=== PATIENT | female | born 1955 | race Caucasian/White ===

== ENCOUNTER → 2017-01-04 | Outpatient (CLI) | payer BC ==
[2017-01-04 14:27] LABS: Basophils # (A) 0.1 k/uL (0-0.2); Basophils % (A) 0 %; CH 30.9; CHCM 32.2; Eosinophils # (A) 0.2 k/uL (0-0.7); Eosinophils % (A) 1 %; HCT 40.2 % (34.0-46.0); HDW 2.35; HGB 12.8 gm/dL (11.4-16.0); Luc # (Auto) 0.08; Luc % (Auto) 1; Lymphocytes # (A) 0.7 k/uL (1.0-4.8); Lymphocytes % (A) 6 %; MCH 30.8 pg (25.0-35.0); MCHC 31.9 g/dL (31.0-37.0); MCV 96.4 fL (80.0-100.0); Monocytes # (A) 0.4 k/uL (0-1.0); Monocytes % (A) 3 %; Neutrophils # (A) 10.1 k/uL (1.3-7.7); Neutrophils % (A) 88 %; RBC 4.17 m/uL (3.80-5.40); RDW 14.5 % (11.5-15.5); WBC 11.4 k/uL (3.8-10.6); WBC (Perox) 12.04
== END | disposition home or self-care (01) ==
LOC: LABPAT 13:52
PROVIDERS: ATTEND Obstetrics & Gynecology
DX: Z01.810 Encounter for preprocedural cardiovascular examination (principal); Z01.812 Encounter for preprocedural laboratory examination; I10 Essential (primary) hypertension; N95.0 Postmenopausal bleeding
CPT/HCPCS: 36415; 85025; 93005

== ENCOUNTER → 2017-01-11 | Day surgery (SDC) | payer BC ==
[2017-01-05 10:09] VITALS: BMI 56.5
[~2017-01-11] MED LIST: BUPIVACAINE-EPI 0.5%-1:200,000 10 ML VIAL SQ ONE; DEXAMETHASONE SOD PHOSPHATE 10 MG/ML 1 ML VIAL IV ONE; HYDROmorphone (PF) 1 MG/ML ONE; HYDROmorphone 0.5 MG/0.5 ML SYRINGE IVP PRN; KETOROLAC 30 MG/ML 1 ML VIAL ONE; LACTATED RINGERS 1,000 ML IV ONE; LACTATED RINGERS 1,000 ML IV SCH; LIDOCAINE 1% 20 ML VIAL (10MG/ML) FOR IV START INTRADERMA PRN; LIDOCAINE 1% INJ 10MG/ML (20 ML MDV) ONE; MIDAZOLAM 2 MG/2 ML VIAL IV ONE; ONDANSETRON 4 MG/2 ML VIAL IVP ONE; PROPOFOL 10 MG/ML 20 ML VIAL IV ONE; Pre Op ABX Message 1 EACH MISC MISCELLANE ONE; SCOPOLAMINE 1.5MG/72HR PATCH TRANSDERM ONE; SUCCINYLCHOLINE CHLORIDE VIAL 200 MG/10 ML VIAL IV ONE; fentaNYL (PF) 50 MCG/ML 2 ML AMP ONE
--- NOTE | 2017-01-11 12:33 | P.OP ---
Date of Procedure: 01/11/17 Preoperative Diagnosis: postmenopausal bleeding Morbid obesity Postoperative Diagnosis: postmenopausal bleeding Morbid obesity Vaginal/cervical mass Procedure(s) Performed: exam under anesthetic with biopsy of vaginal apex mass Anesthesia: TIM Surgeon: Becki Boykin Estimated Blood Loss (ml): 5 IV fluids (ml): 750 Urine output (ml): 50 Pathology: other (vaginal apex mass) Condition: stable Disposition: PACU Indications for Procedure: this is a 61-year-old woman with a history of postmenopausal bleeding. Tissue biopsy an adequate examination is not possible in the office secondary to body habitus and mobility issues. Operative Findings: On bimanual examination the vagina is small and the apex constricted with a firm friable mass. Pieces of this mass are able to be removed manually and or saved for pathology. With speculum examination, it is very difficult to open the speculum secondary to the patient's body habitus that a small portion of abnormal tissue possibly emanating from the anterior vaginal wall and or cervix is visualized. This is friable and pieces are grasped and removed for pathology specimen. This area is is bleeding somewhat prior to taking samples. Speculum was removed and bimanual examination was again performed. I do believe this mass is emanating from the cervix and extending into the anterior and right vagina and posterior vagina. rectovaginal examination is performed and I do not palpate any rectal mass however there is some firmness and thickening in the midportion of the rectal vaginal septum. adequate sampling of this finding undertaken. Patient was awoken from anesthetic and transported to recovery area in stable condition. All counts were correct.
[2017-01-11 12:43] VITALS: TEMP 97
[2017-01-11 13:38] VITALS: PULSE 78
[2017-01-11 14:01] VITALS: RESP 18
[2017-01-11 14:24] VITALS: BP 145/86
== END | disposition home or self-care (01) ==
LOC: OR 09:36
PROVIDERS: ATTEND Obstetrics & Gynecology
DX: C52 Malignant neoplasm of vagina (principal); N95.0 Postmenopausal bleeding; I10 Essential (primary) hypertension; G47.33 Obstructive sleep apnea (adult) (pediatric); F32.9 Major depressive disorder, single episode, unspecified; K21.9 Gastro-esophageal reflux disease without esophagitis; E66.01 Morbid (severe) obesity due to excess calories; Z68.44 Body mass index [BMI] 60.0-69.9, adult; Z82.49 Family history of ischemic heart disease and other diseases of the circulatory system; Z79.82 Long term (current) use of aspirin; Z79.899 Other long term (current) drug therapy
CPT/HCPCS: 57100; 88305; 88342; 86788; 88341; J2250; J0330; J1100; J2405; J2001; J3010; J1885; J1170; J2704

== ENCOUNTER 2017-01-26 10:42 | Observation (INO) | payer BC ==
[2017-01-26] MEDS ORDERED: SODIUM CHLORIDE 0.9% 1,000 ML IV ONE (11:34)
--- NOTE | 2017-01-26 11:42 | ED ---
General Adult HPI - General Chief complaint: Vaginal Bleeding Stated complaint: Vaginal Bleeding Time Seen by Provider: 01/26/17 10:53 Source: patient, RN notes reviewed, old records reviewed Mode of arrival: wheelchair Limitations: no limitations - History of Present Illness Initial comments: This is a 7-year-old female to the ER for evaluation today. Patient is and has known vaginal bleeding. Has for quite some time. Patient has been evaluated on different occasions for this vaginal bleeding. She has known endometrial cancer:"advanced". Patient is stating that she has vaginal bleeding today and passing some clots. Patient states on average she changes her pad her brief about 3 times a day. Denies lightheadedness or dizziness, denies feeling of weakness. - Related Data Home Medications Medication Instructions Recorded Confirmed Bisoprol/Hydrochlorothiazide [Ziac 1 tab PO DAILY 01/05/17 01/26/17 5-6.25 MG] Famotidine [Pepcid] 20 mg PO BID 01/05/17 01/26/17 Ferrous Sulfate [Iron] 325 mg PO DAILY 01/05/17 01/26/17 Sertraline HCl [Zoloft] 75 mg PO DAILY 01/05/17 01/26/17 Vit C/E/Zn/Coppr/Lutein/Zeaxan 1 cap PO BID 01/05/17 01/26/17 [Preservision Areds 2 Softgel] ALPRAZolam [Xanax] 0.5 mg PO TID PRN 01/26/17 01/26/17 Hydrocodone/Acetaminophen [[place] 1 tab PO TID PRN 01/26/17 01/26/17 10-325] Allergies Allergy/AdvReac Type Severity Reaction Status Date / Time No Known Allergies Allergy Verified 01/26/17 11:04 Review of Systems ROS Statement: Those systems with pertinent positive or pertinent negative responses have been documented in the HPI. ROS Other: All systems not noted in ROS Statement are negative. Past Medical History Past Medical History: Cancer, Eye Disorder, Hypertension, Osteoarthritis (OA), Sleep Apnea/CPAP/BIPAP Additional Past Medical History / Comment(s): macular degeneration History of Any Multi-Drug Resistant Organisms: None Reported Past Surgical History: Orthopedic Surgery Past Psychological History: Anxiety, Depression Smoking Status: Never smoker Past Alcohol Use History: Occasional Past Drug Use History: None Reported General Exam Limitations: no limitations General appearance: alert, in no apparent distress Head exam: Present: atraumatic, normocephalic, normal inspection Eye exam: Present: normal appearance, PERRL, EOMI. Absent: scleral icterus, conjunctival injection, periorbital swelling ENT exam: Present: normal exam, mucous membranes moist Neck exam: Present: normal inspection. Absent: tenderness, meningismus, lymphadenopathy Respiratory exam: Present: normal lung sounds bilaterally. Absent: respiratory distress, wheezes, rales, rhonchi, stridor Cardiovascular Exam: Present: regular rate, normal rhythm, normal heart sounds. Absent: systolic murmur, diastolic murmur, rubs, gallop, clicks GI/Abdominal exam: Present: soft, normal bowel sounds. Absent: distended, tenderness, guarding, rebound, rigid Extremities exam: Present: normal inspection, full ROM, normal capillary refill. Absent: tenderness, pedal edema, joint swelling, calf tenderness Back exam: Present: normal inspection Neurological exam: Present: alert, oriented X3, CN II-XII intact Psychiatric exam: Present: normal affect, normal mood Skin exam: Present: warm, dry, intact, normal color. Absent: rash Course Vital Signs 01/26/17 01/26/17 10:45 12:55 Temperature 97.7 F Pulse Rate 80 73 Respiratory 16 17 Rate Blood Pressure 135/63 129/59 O2 Sat by Pulse 97 96 Oximetry - Reevaluation(s) Reevaluation #1: 01/26/17 11:42 Medical records reviewed including prior pelvic exam, Reevaluation #2: 01/26/17 11:42 Patient monitored for amount of bleeding here in the emergency room Reevaluation #3: 01/26/17 11:[address] Israel at [facility], he is very aware of patient, wants assessment of bleeding, therapeutic radiation evaluation Medical Decision Making - Medical Decision Making 61-year-old female at the ER for evaluation of vaginal bleeding secondary to endometrial cancer. Patient will be admitted for palliative radiation therapy in regards to bleeding. Hemoglobin stable, patient is lightheadedness or dizzy - Lab Data Result diagrams: 01/26/17 11:25 01/26/17 11:25 Lab Results 01/26/17 01/26/17 01/26/17 Range/Units 11:25 11:25 11:25 WBC 15.1 H (3.8-10.6) k/uL RBC 4.14 (3.80-5.40) m/uL Hgb 12.2 (11.4-16.0) gm/dL Hct 38.5 (34.0-46.0) % MCV 93.0 (80.0-100.0) fL MCH 29.5 (25.0-35.0) pg MCHC 31.8 (31.0-37.0) g/dL RDW 14.5 (11.5-15.5) % Plt Count 509 H (150-450) k/uL Neutrophils % 91 % Lymphocytes % 3 % Monocytes % 4 % Eosinophils % 2 % Basophils % 1 % Neutrophils # 13.7 H (1.3-7.7) k/uL Lymphocytes # 0.5 L (1.0-4.8) k/uL Monocytes # 0.5 (0-1.0) k/uL Eosinophils # 0.3 (0-0.7) k/uL Basophils # 0.1 (0-0.2) k/uL PT 10.0 (9.0-12.0) sec INR 1.0 (<1.2) APTT 24.7 (22.0-30.0) sec Sodium 138 (137-145) mmol/L Potassium 4.1 (3.5-5.1) mmol/L Chloride 107 (98-107) mmol/L Carbon Dioxide 19 L (22-30) mmol/L Anion Gap 12 mmol/L BUN 37 H (7-17) mg/dL Creatinine 2.16 H (0.52-1.04) mg/dL Est GFR (MDRD) Af Amer 28 (>60 ml/min/1.73 sqM) Est GFR (MDRD) Non-Af 23 (>60 ml/min/1.73 sqM) Glucose 97 (74-99) mg/dL Calcium 9.1 (8.4-10.2) mg/dL Total Bilirubin 0.3 (0.2-1.3) mg/dL AST 32 (14-36) U/L ALT 18 (9-52) U/L Alkaline Phosphatase 61 (38-126) U/L Total Protein 6.8 (6.3-8.2) g/dL Albumin 3.4 L (3.5-5.0) g/dL Blood Type Blood Type Recheck Antibody Screen Spec Expiration Date 01/26/17 Range/Units 11:25 WBC (3.8-10.6) k/uL RBC (3.80-5.40) m/uL Hgb (11.4-16.0) gm/dL Hct (34.0-46.0) % MCV (80.0-100.0) fL MCH (25.0-35.0) pg MCHC (31.0-37.0) g/dL RDW (11.5-15.5) % Plt Count (150-450) k/uL Neutrophils % % Lymphocytes % % Monocytes % % Eosinophils % % Basophils % % Neutrophils # (1.3-7.7) k/uL Lymphocytes # (1.0-4.8) k/uL Monocytes # (0-1.0) k/uL Eosinophils # (0-0.7) k/uL Basophils # (0-0.2) k/uL PT (9.0-12.0) sec INR (<1.2) APTT (22.0-30.0) sec Sodium (137-145) mmol/L Potassium (3.5-5.1) mmol/L Chloride (98-107) mmol/L Carbon Dioxide (22-30) mmol/L Anion Gap mmol/L BUN (7-17) mg/dL Creatinine (0.52-1.04) mg/dL Est GFR (MDRD) Af Amer (>60 ml/min/1.73 sqM) Est GFR (MDRD) Non-Af (>60 ml/min/1.73 sqM) Glucose (74-99) mg/dL Calcium (8.4-10.2) mg/dL Total Bilirubin (0.2-1.3) mg/dL AST (14-36) U/L ALT (9-52) U/L Alkaline Phosphatase (38-126) U/L Total Protein (6.3-8.2) g/dL Albumin (3.5-5.0) g/dL Blood Type O Positive Blood Type Recheck No Antibody Screen NEGATIVE Spec Expiration Date 01/29/2017 - 2324 Disposition Clinical Impression: Dysfunctional uterine bleeding, Menometrorrhagia, Endometrial cancer, Vaginal bleeding Disposition: ADMITTED IP TO THIS HOSP Referrals: Nedic,Abel, MD [Primary Care Provider] - 1-2 days
[2017-01-26 11:49] LABS: Basophils # (A) 0.1 k/uL (0-0.2); Basophils % (A) 1 %; CH 29.3; CHCM 31.6; Eosinophils # (A) 0.3 k/uL (0-0.7); Eosinophils % (A) 2 %; HCT 38.5 % (34.0-46.0); HDW 2.27; HGB 12.2 gm/dL (11.4-16.0); Luc # (Auto) 0.09; Luc % (Auto) 1; Lymphocytes # (A) 0.5 k/uL (1.0-4.8); Lymphocytes % (A) 3 %; MCH 29.5 pg (25.0-35.0); MCHC 31.8 g/dL (31.0-37.0); Mean Platelet Volume 7.1; Monocytes # (A) 0.5 k/uL (0-1.0); Monocytes % (A) 4 %; Neutrophils # (A) 13.7 k/uL (1.3-7.7); Neutrophils % (A) 91 %; RBC 4.14 m/uL (3.80-5.40); RDW 14.5 % (11.5-15.5); WBC 15.1 k/uL (3.8-10.6); WBC (Perox) 15.21
[2017-01-26 11:56] LABS: Calcium 9.1 mg/dL (8.4-10.2); Potassium 4.1 mmol/L (3.5-5.1); Total Bilirubin 0.3 mg/dL (0.2-1.3); Total Protein 6.8 g/dL (6.3-8.2)
[2017-01-26 12:06] LABS: Partial Thromboplastin Time 24.7 sec (22.0-30.0)
[2017-01-26] MEDS ORDERED: ALPRAZolam 0.5 MG TAB PO PRN (14:51)
[2017-01-26] MEDS ORDERED: CYCLOBENZAPRINE 5 MG TAB PO PRN (14:52)
--- NOTE | 2017-01-26 14:57 | P.HPIM ---
History of Present Illness Patient is a very pleasant 7-year-old female with known history of any material cancer came in with vaginal bleeding multiple episodes of blood clots uses about 4 pads daily since Wednesday. 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 Patient is comparing of abdominal cramping and vaginal cramping along with back pain and spasms will start her on symptomatically treatment for these and monitor her here for any further bleeding. Review of Systems REVIEW OF SYSTEMS: CONSTITUTIONAL: No fever, no malaise, no fatigue. HEENT: No recent visual problems or hearing problems. Denied any sore throat. CARDIOVASCULAR: No chest pain, orthopnea, PND, no palpitations, no syncope. PULMONARY: No shortness of breath, no cough, no hemoptysis. GASTROINTESTINAL: No diarrhea, no nausea, no vomiting, no abdominal pain. Normoactive bowel sounds. NEUROLOGICAL: No headaches, no weakness, no numbness. HEMATOLOGICAL: Denies any bleeding or petechiae. GENITOURINARY: Denies any burning micturition, frequency, or urgency. MUSCULOSKELETAL/RHEUMATOLOGICAL: As mentioned in HPI ENDOCRINE: Denies any polyuria or polydipsia. The rest of the 14-point review of systems is negative. Past Medical History Past Medical History: Cancer, Eye Disorder, Hypertension, Osteoarthritis (OA), Sleep Apnea/CPAP/BIPAP Additional Past Medical History / Comment(s): macular degeneration History of Any Multi-Drug Resistant Organisms: None Reported Past Surgical History: Orthopedic Surgery Past Psychological History: Anxiety, Depression Smoking Status: Never smoker Past Alcohol Use History: Occasional Past Drug Use History: None Reported Medications and Allergies Home Medications Medication Instructions Recorded Confirmed Type Bisoprol/Hydrochlorothiazide [Ziac 1 tab PO DAILY 01/05/17 01/26/17 History 5-6.25 MG] Famotidine [Pepcid] 20 mg PO BID 01/05/17 01/26/17 History Ferrous Sulfate [Iron] 325 mg PO DAILY 01/05/17 01/26/17 History Sertraline HCl [Zoloft] 75 mg PO DAILY 01/05/17 01/26/17 History Vit C/E/Zn/Coppr/Lutein/Zeaxan 1 cap PO BID 01/05/17 01/26/17 History [Preservision Areds 2 Softgel] ALPRAZolam [Xanax] 0.5 mg PO TID PRN 01/26/17 01/26/17 History Hydrocodone/Acetaminophen [[place] 1 tab PO TID PRN 01/26/17 01/26/17 History 10-325] Allergies Allergy/AdvReac Type Severity Reaction Status Date / Time No Known Allergies Allergy Verified 01/26/17 11:04 Physical Exam Vitals: Vital Signs Temp Pulse Resp BP Pulse Ox 01/26/17 13:40 97.7 F 77 17 144/65 01/26/17 12:55 73 17 129/59 96 01/26/17 10:45 97.7 F 80 16 135/63 97 Intake and Output 01/25/17 01/26/17 01/26/17 22:59 06:59 14:59 Other: Weight 121.109 kg Patient Weight 01/27/17 06:59 Weight 121.109 kg PHYSICAL EXAMINATION: GENERAL: The patient is alert and oriented x3, not in any acute distress. Well developed, well nourished. HEENT: Pupils are round and equally reacting to light. EOMI. No scleral icterus. No conjunctival pallor. Normocephalic, atraumatic. No pharyngeal erythema. No thyromegaly. CARDIOVASCULAR: S1 and S2 present. No murmurs, rubs, or gallops. PULMONARY: Chest is clear to auscultation, no wheezing or crackles. ABDOMEN: Soft, nontender, nondistended, normoactive bowel sounds. No palpable organomegaly. MUSCULOSKELETAL: No joint swelling or deformity. EXTREMITIES: No cyanosis, clubbing, or pedal edema. NEUROLOGICAL: Gross neurological examination did not reveal any focal deficits. SKIN: No rashes. Results CBC & Chem 7: 01/26/17 11:25 01/26/17 11:25 Labs: Abnormal Lab Results - Last 24 Hours (Table) 01/26/17 01/26/17 Range/Units 11:25 11:25 WBC 15.1 H (3.8-10.6) k/uL Plt Count 509 H (150-450) k/uL Neutrophils # 13.7 H (1.3-7.7) k/uL Lymphocytes # 0.5 L (1.0-4.8) k/uL Carbon Dioxide 19 L (22-30) mmol/L BUN 37 H (7-17) mg/dL Creatinine 2.16 H (0.52-1.04) mg/dL Albumin 3.4 L (3.5-5.0) g/dL Assessment and Plan Plan: #1 vaginal bleeding: Secondary to intermittent cancer patient is not a candidate for surgery or chemotherapy patient the will be evaluated for palliative radiation to control bleeding. #2 chronic back pain: Will use had a: Escitalopram often combination along with cyclobenzaprine for spasms. #3 anxiety disorder. #3 gastric specialist reflux disease #4 depression #5 advanced endometrial stage IV cancer hematology oncology will be consulted apparently patient's prognosis is extremely poor
[2017-01-26] MEDS: HYDROcodone/APAP 10-325MG 1 EACH TAB PO PRN (16:14)
--- NOTE | 2017-01-26 16:56 | P.CONS ---
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 She presented with vaginal bleeding multiple episodes of blood clots as large as a golf ball. She admits to using about 4 pads that appear to be completely soaked. On 01/11/17 she underwent EUA with biopsy under the care of Dr. Boykin which identified a firm fraiable mass in the vaginal apex. Pathology returned as high grade clear cell adenocarcinoma. CT A/P on 01/15/17 identified a 11.2 cm mass involving the uterus and large uterine fibroid. Abdominal ascites as well as periaortic and retrovacal lymph nodes were visualized. Yeimi was evaluated by graduate internship/onc 01/22/17 and was felt to be a nonoperative candidate. It was recommended she undergo consideration of palliative radiation therapy and chemotherapy. She complained of increased vaginal bleeding was told by her surgeon to present to the hospital for palliative XRT. On todays visit she complains of abdominal cramping and lumbar spine pain. She otherwise denies chest pain, nausea, vomiting, shortness of breathe, or light headedness. Review of Systems Respiratory: Denies cough Gastrointestinal: Reports diarrhea Genitourinary: Reports abnormal vaginal bleeding, Reports pelvic pain, Reports vaginal discharge Past Medical History Past Medical History: Cancer, Eye Disorder, Hypertension, Osteoarthritis (OA), Sleep Apnea/CPAP/BIPAP Additional Past Medical History / Comment(s): macular degeneration History of Any Multi-Drug Resistant Organisms: None Reported Past Surgical History: Orthopedic Surgery Additional Past Surgical History / Comment(s): 01/11/17 Exam under anesthesia with bx vaginal apex mass, hysteroscopy, D&C, ORIF bilateral ankles with external device r leg, debridement L leg, skin graft from L thigh to lower L leg. Past Anesthesia/Blood Transfusion Reactions: No Reported Reaction Additional Past Anesthesia/Blood Transfusion Reaction / Comm: Pt has received blood in the past without reaction. Past Psychological History: Anxiety, Depression Smoking Status: Never smoker Past Alcohol Use History: Occasional Past Drug Use History: None Reported - Past Family History Father Family Medical History: Cancer Additional Family Medical History / Comment(s): Father had leukemia. Father is . Mother Family Medical History: Hypertension Additional Family Medical History / Comment(s): Mother is . Medications and Allergies Home Medications Medication Instructions Recorded Confirmed Type Bisoprol/Hydrochlorothiazide [Ziac 1 tab PO DAILY 01/05/17 01/26/17 History 5-6.25 MG] Famotidine [Pepcid] 20 mg PO BID 01/05/17 01/26/17 History Ferrous Sulfate [Iron] 325 mg PO DAILY 01/05/17 01/26/17 History Sertraline HCl [Zoloft] 75 mg PO DAILY 01/05/17 01/26/17 History Vit C/E/Zn/Coppr/Lutein/Zeaxan 1 cap PO BID 01/05/17 01/26/17 History [Preservision Areds 2 Softgel] ALPRAZolam [Xanax] 0.5 mg PO TID PRN 01/26/17 01/26/17 History Hydrocodone/Acetaminophen [[place] 1 tab PO TID PRN 01/26/17 01/26/17 History 10-325] Allergies Allergy/AdvReac Type Severity Reaction Status Date / Time No Known Allergies Allergy Verified 01/26/17 11:04 Physical Exam Vitals: Vital Signs Temp Pulse Pulse Resp BP BP Pulse Ox 01/26/17 15:00 98.5 F 77 18 144/78 96 01/26/17 13:40 97.7 F 77 17 144/65 01/26/17 12:55 73 17 129/59 96 01/26/17 10:45 97.7 F 80 16 135/63 97 Intake and Output 01/26/17 01/26/17 01/26/17 06:59 14:59 22:59 Other: # Voids 1 # Bowel Movements 1 Weight 121.109 kg Patient Weight 01/27/17 06:59 Weight 121.109 kg - Constitutional General appearance: morbidly obese - EENT Eyes: EOMI - Neck Neck: normal ROM - Respiratory Respiratory: bilateral: CTA - Cardiovascular Rhythm: regular - Gastrointestinal General gastrointestinal: hyperactive bowel sounds - Integumentary Integumentary: cellulitis Results CBC & Chem 7: 01/26/17 11:25 01/26/17 11:25 Labs: Abnormal Lab Results - Last 24 Hours (Table) 01/26/17 01/26/17 Range/Units 11:25 11:25 WBC 15.1 H (3.8-10.6) k/uL Plt Count 509 H (150-450) k/uL Neutrophils # 13.7 H (1.3-7.7) k/uL Lymphocytes # 0.5 L (1.0-4.8) k/uL Carbon Dioxide 19 L (22-30) mmol/L BUN 37 H (7-17) mg/dL Creatinine 2.16 H (0.52-1.04) mg/dL Albumin 3.4 L (3.5-5.0) g/dL Microbiology - Last 24 Hours (Table) 01/26/17 11:50 Urine Culture - Preliminary Urine,Clean Catch Assessment and Plan Assessment: 61 year old with 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 She presents with profuse vaginal bleeding. Plan: I discussed with Yeimi that often uterine cancer is diagnosed with disease state not suitable for radical treatment. In this situation, palliative RT for both her vaginal bleeding and pelvic pain would likely be beneficial. We will have Yeimi come down on 01/27/[address] simulation with plans to deliver her first fraction of therapy later that afternoon. A discussion of the risks and side effects of radiation therapy were had with both Yeimi and her sister and they acknowledged understanding and consent was signed. I will further discuss this case with Dr. Israel and [employer] Operator/Onc.
[2017-01-26] MEDS: FAMOTIDINE 20 MG TAB PO SCH (21:12)
[2017-01-26] MEDS: VIT A,C & E-LUTEIN-MINERALS 1 EACH TAB PO SCH (21:12)
[2017-01-27] MEDS: HYDROcodone/APAP 10-325MG 1 EACH TAB PO PRN ×4 (00:12→20:12)
[2017-01-27 07:40] LABS: CHCM 30.8; HCT 35.2 % (34.0-46.0); HDW 2.26; HGB 10.8 gm/dL (11.4-16.0); Hypochromasia Slight; MCH 29.1 pg (25.0-35.0); MCHC 30.7 g/dL (31.0-37.0); MCV 94.8 fL (80.0-100.0); Mean Platelet Volume 6.7; RBC 3.72 m/uL (3.80-5.40); RDW 14.3 % (11.5-15.5); WBC 13.2 k/uL (3.8-10.6)
[2017-01-27 07:55] LABS: Calcium 8.6 mg/dL (8.4-10.2)
[2017-01-27] MEDS: VIT A,C & E-LUTEIN-MINERALS 1 EACH TAB PO SCH ×2 (07:55→20:11)
[2017-01-27] MEDS: SERTRALINE 25 MG TAB PO SCH (07:55)
[2017-01-27] MEDS: FAMOTIDINE 20 MG TAB PO SCH (07:56)
[2017-01-27] MEDS: FERROUS SULFATE 325 MG TAB PO SCH (07:56)
[2017-01-27] MEDS: BISOPROLOL-HCTZ 5-6.25 MG 1 EACH TAB PO SCH (07:56)
[2017-01-27 10:25] VITALS: BMI 53.9
[2017-01-27] MEDS ORDERED: [UNRECOGNIZED DRUG - SUPPLY] TOPICAL SCH (12:00)
[2017-01-27] MEDS: SODIUM CHLORIDE 0.9% 1,000 ML IV SCH ×2 (16:52→23:05)
[2017-01-28] MEDS: HYDROcodone/APAP 10-325MG 1 EACH TAB PO PRN ×2 (06:32→14:13)
[2017-01-28] MEDS: SERTRALINE 25 MG TAB PO SCH (07:43)
[2017-01-28] MEDS: VIT A,C & E-LUTEIN-MINERALS 1 EACH TAB PO SCH (07:43)
[2017-01-28] MEDS: FERROUS SULFATE 325 MG TAB PO SCH (07:43)
[2017-01-28] MEDS: BISOPROLOL-HCTZ 5-6.25 MG 1 EACH TAB PO SCH (07:44)
[2017-01-28 09:00] VITALS: RESP 16
[2017-01-28] MEDS ORDERED: FAMOTIDINE 20 MG TAB PO SCH (09:00)
[2017-01-28] MEDS ORDERED: MAGNESIUM HYDROXIDE 2,400 MG/10 ML CUP PO PRN (09:31)
[2017-01-28] MEDS ORDERED: DOCUSATE 100 MG CAP PO SCH (09:45)
[2017-01-28] MEDS: SODIUM CHLORIDE 0.9% 1,000 ML IV SCH (14:15)
--- NOTE | 2017-01-28 15:17 | P.PN ---
Subjective Progress Note Date: 01/27/17 Progress note being dictated for Dr. Sheridan Interval history:Patient is a very pleasant 7-year-old female with known history of any material cancer came in with vaginal bleeding multiple episodes of blood clots uses about 4 pads daily since Wednesday. 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 Patient is comparing of abdominal cramping and vaginal cramping along with back pain and spasms will start her on symptomatically treatment for these and monitor her here for any further bleeding. 01/27/2017. Vaginal bleeding improved, awaiting first radiation treatment this afternoon. HGB 10.8. Receiving IV fluid hydration, renal function improving. Abdominal cramping described as suprapubic radiating across bilateral lower quadrants of abdomen and into the lower back, improving. Flexeril added to med regime and back spasms lessening. Eating [employer], with no nausea or vomiting. Denies chest pain, palpitations or increasing shortness of breath. Denies lightheadedness dizziness or focal deficits. Objective - Vital Signs Vital signs: Vital Signs Temp 98.0 F 01/27/17 07:00 Pulse 79 01/27/17 07:00 Resp 20 01/27/17 07:00 BP 128/73 01/27/17 07:00 Pulse Ox 93 L 01/27/17 07:00 Intake & Output 01/26/17 01/27/17 01/27/17 18:59 06:59 18:59 Intake Total 830 Balance 830 Weight 121.109 kg 121.109 kg Intake: Oral 830 Other: Voiding Method Toilet Toilet Toilet # Voids 1 3 1 # Bowel Movements 1 - Exam GENERAL: The patient is alert and oriented x3, not in any acute distress. Well developed, well nourished. HEENT: Pupils are round and equally reacting to light. EOMI. No scleral icterus. No conjunctival pallor. Normocephalic, atraumatic. No pharyngeal erythema. No thyromegaly. CARDIOVASCULAR: S1 and S2 present. No murmurs, rubs, or gallops. PULMONARY: Chest is clear to auscultation, no wheezing or crackles. ABDOMEN: Soft, nontender, nondistended, normoactive bowel sounds. No palpable organomegaly. MUSCULOSKELETAL: No joint swelling or deformity. EXTREMITIES: No cyanosis, clubbing, or pedal edema. NEUROLOGICAL: Gross neurological examination did not reveal any focal deficits. SKIN: No rashes. - Labs CBC & Chem 7: 01/27/17 07:20 01/27/17 07:20 Labs: Abnormal Lab Results - Last 24 Hours (Table) 01/27/17 01/27/17 Range/Units 07:20 07:20 WBC 13.2 H (3.8-10.6) k/uL RBC 3.72 L (3.80-5.40) m/uL Hgb 10.8 L (11.4-16.0) gm/dL MCHC 30.7 L (31.0-37.0) g/dL Chloride 108 H (98-107) mmol/L BUN 36 H (7-17) mg/dL Creatinine 1.96 H (0.52-1.04) mg/dL Microbiology - Last 24 Hours (Table) 01/26/17 11:50 Urine Culture - Preliminary Urine,Clean Catch Assessment and Plan Plan: #1 vaginal bleeding: Secondary to intermittent cancer patient is not a candidate for surgery or chemotherapy , receiving palliative radiation to control bleeding. #2 chronic back pain #3 anxiety disorder. #3 gastric specialist reflux disease #4 depression #5 advanced endometrial stage IV cancer hematology oncology will be consulted apparently patient's prognosis is extremely poor Plan: Continue on current medication regime ,monitoring. Awaiting first radiation treatment today. Discharge planning in progress for tomorrow with radiation appointments to be set up for outpatient. Close monitoring of hemoglobin and renal function with repeat labs ordered. The impression and plan of care has been dictated as directed. : I performed a history and examination of this patient, discussed the same with the dictator. I agree with the dictator's note ,documented as a scribe. Any additional findings or plans will be noted.
--- NOTE | 2017-01-28 15:41 | P.DS ---
Providers Date of admission: 01/26/17 13:10 Expected date of discharge: 01/28/17 Attending physician: Greta Sheridan Consults: 01/26/17 14:47 Consult Physician Routine Consulting Provider: Ann-Marie Israel Consult Reason/Comments: endometrial cancer Do you want consulting provider notified?: Yes 01/26/17 14:48 Consult Physician Routine Consulting Provider: Abimael Perez Consult Reason/Comments: endometrial cancer Do you want consulting provider notified?: Yes Primary care physician: Abel Sevilla Hospital Course: Final Diagnoses: #1 vaginal bleeding: Secondary to intermittent cancer patient is not a candidate for surgery or chemotherapy , receiving palliative radiation to control bleeding. #2 chronic back pain #3 anxiety disorder. #3 gastric specialist reflux disease #4 depression #5 advanced endometrial stage IV cancer hematology oncology will be consulted apparently patient's prognosis is extremely poor Hospital course:Patient is a very pleasant 61-year-old female with known history of endometrial cancer, admitted with vaginal bleeding ,multiple episodes of blood clots uses about 4 pads daily since Wednesday. Patient has advancing, stage IV not a candidate for chemotherapy or any surgical intervention because of which patient admitted for palliative radiation radiation. Complaining of abdominal cramping radiating to lower back with back spasms. Flexeril added to med regime. Evaluated by oncology and radiation oncologist. Radiation initiated. Hemoglobin remained stable with significant improvement in bleeding and discomfort. Tolerated well. Cleared by consults for discharge. Patient is being discharged home in stable condition with guarded prognosis. The impression and plan of care has been dictated as directed. : I performed a history and examination of this patient, discussed the same with the dictator. I agree with the dictator's note ,documented as a scribe. Any additional findings or plans will be noted. Patient Condition at Discharge: Stable Plan - Discharge Summary Discharge Rx Participant: No New Discharge Prescriptions: New Cyclobenzaprine [Flexeril] 5 mg PO TID PRN #30 tab PRN Reason: Muscle Spasm Docusate [Colace] 100 mg PO BID #60 cap Continue Vit C/E/Zn/Coppr/Lutein/Zeaxan [Preservision Areds 2 Softgel] 1 cap PO BID Sertraline HCl [Zoloft] 75 mg PO DAILY Ferrous Sulfate [Iron] 325 mg PO DAILY Famotidine [Pepcid] 20 mg PO BID Bisoprol/Hydrochlorothiazide [Ziac 5-6.25 MG] 1 tab PO DAILY Hydrocodone/Acetaminophen [[place] 10-325] 1 tab PO TID PRN PRN Reason: Pain ALPRAZolam [Xanax] 0.5 mg PO TID PRN PRN Reason: Anxiety Non-Formulary Drug [Non Formulary Drug] 1 each TOPICAL DAILY Discharge Medication List Bisoprol/Hydrochlorothiazide [Ziac 5-6.25 MG] 1 tab PO DAILY 01/05/17 [History] Famotidine [Pepcid] 20 mg PO BID 01/05/17 [History] Ferrous Sulfate [Iron] 325 mg PO DAILY 01/05/17 [History] Sertraline HCl [Zoloft] 75 mg PO DAILY 01/05/17 [History] Vit C/E/Zn/Coppr/Lutein/Zeaxan [Preservision Areds 2 Softgel] 1 cap PO BID 01/05 [History] ALPRAZolam [Xanax] 0.5 mg PO TID PRN 01/26/17 [History] Hydrocodone/Acetaminophen [[place] 10-325] 1 tab PO TID PRN 01/26/17 [History] Non-Formulary Drug [Non Formulary Drug] 1 each TOPICAL DAILY 01/27/17 [History] Cyclobenzaprine [Flexeril] 5 mg PO TID PRN #30 tab 01/28/17 [Rx] Docusate [Colace] 100 mg PO BID #60 cap 01/28/17 [Rx] Follow up Appointment(s)/Referral(s): Abel Sevilla MD [Primary Care Provider] - 1-2 days Ann-Marie Israel MD [STAFF PHYSICIAN] - 02/01/17 8:00 am Ambulatory/Diagnostic Orders: Complete Blood Count w/diff [LAB.AMB] Time Frame: 3 Days, Location: Determined By Patient
[2017-01-28 15:56] VITALS: BP 153/93; PULSE 83; TEMP 98.7
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
== END 2017-01-28 17:20 | disposition home or self-care (01) ==
LOC: EC 10:42 → 5ONC 13:10
PROVIDERS: ADMIT Hospitalist; ATTEND Hospitalist
DX: C54.1 Malignant neoplasm of endometrium (principal); G89.29 Other chronic pain; M54.9 Dorsalgia, unspecified; R18.8 Other ascites; F41.9 Anxiety disorder, unspecified; R59.1 Generalized enlarged lymph nodes; R10.30 Lower abdominal pain, unspecified; M62.830 Muscle spasm of back; K21.9 Gastro-esophageal reflux disease without esophagitis; F32.9 Major depressive disorder, single episode, unspecified; I10 Essential (primary) hypertension; M19.90 Unspecified osteoarthritis, unspecified site; H35.30 Unspecified macular degeneration; G47.30 Sleep apnea, unspecified; Z99.89 Dependence on other enabling machines and devices; Z79.899 Other long term (current) drug therapy; Z80.6 Family history of leukemia; Z82.49 Family history of ischemic heart disease and other diseases of the circulatory system; E66.01 Morbid (severe) obesity due to excess calories; Z68.43 Body mass index [BMI] 50.0-59.9, adult; Z51.5 Encounter for palliative care
CPT/HCPCS: 99285; 96360 ×2; 96361 ×4; 36415; 86900; 86901; 80053; 80048; 85025; 85027; 85610; 85730; 86850; 87086; 87077; 87186; 77295; 77300; 77332; 77334; 77387; 77412 ×2; G0378 ×3

== ENCOUNTER 2017-02-22 12:05 | Emergency (ER) | payer OTHER, BC ==
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
--- NOTE | 2017-02-22 13:50 | XR ---
EXAMINATION TYPE: XR ankle complete RT DATE OF EXAM: 02/22/2017 COMPARISON: NONE HISTORY: Pain FINDINGS: Three views of the ankle demonstrate previous surgery involving the tibia with diffuse osteopenia. Th ere is marked deformity of the distal tibia compatible with a nonunion of previous fracture extending to the articular surface. Fracture involving the distal fibula also suspected. Vascular calcificatio n seen. Large calcaneal spurs noted. IMPRESSION: 1. Marked deformity of the distal ankle with findings suggestive of previous fractures. Incomplete he aling of the distal tibial fracture noted. Could not exclude an acute injury to the lateral malleolus correlate clinically.
--- NOTE | 2017-02-22 13:51 | XR ---
EXAMINATION TYPE: XR tibia fibula RT DATE OF EXAM: 02/22/2017 COMPARISON: NONE HISTORY: Pain TECHNIQUE: Two views are submitted. FINDINGS: Postsurgical change involving the tibia noted with severe osteoarthritis involving the knee joint. There is marked deformity of the distal tibia and fibula suggestive of previous fracture. 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 IMPRESSION: 1. Marked deformity of the right ankle suggestive of previous fracture with nonunion component. Could not exclude acute nondisplaced fracture of the lateral malleolus.
[2017-02-22 14:41] VITALS: RESP 18
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
[2017-02-22 16:25] VITALS: BP 124/62; PULSE 74; TEMP 98.1
== END 2017-02-22 16:25 | disposition home or self-care (01) ==
LOC: EC 12:05
DX: M25.571 Pain in right ankle and joints of right foot (principal); M79.89 Other specified soft tissue disorders; S82.301D Unspecified fracture of lower end of right tibia, subsequent encounter for closed fracture with routine healing; L81.9 Disorder of pigmentation, unspecified; R60.0 Localized edema; I10 Essential (primary) hypertension; F32.9 Major depressive disorder, single episode, unspecified; F41.9 Anxiety disorder, unspecified; Z79.899 Other long term (current) drug therapy; Z98.890 Other specified postprocedural states; V49.9XXD Car occupant (driver) (passenger) injured in unspecified traffic accident, subsequent encounter
CPT/HCPCS: 29515; 99284

== ENCOUNTER → 2017-05-10 | Outpatient (CLI) | payer BC ==
--- NOTE | 2017-05-10 21:54 | CT ---
EXAMINATION TYPE: CT ChestAbdPelvis wo con DATE OF EXAM: 05/10/2017 INDICATION: Uterine Cancer COMPARISON: 01/15/2017 CT DLP: 1546.90 mGycm CONTRAST: Performed with Oral Contrast and , no intravenous contrast due to renal function TECHNIQUE: Axial images at 5 mm thick sections. Reconstructed images in the coronal plane. Delayed images through the kidneys. FINDINGS: CT CHEST: Portion of the thyroid visualized is normal. No suspicious lung nodules or focal infiltrates are present. No enlarged mediastinal or hilar adenopathy is evident. The ascending aorta diameter at the level of the main pulmonary artery is 3.5 cm. The main pulmonary artery diameter at the bifurcation is 3.1 cm. Mild coronary artery calcification is present. CT ABDOMEN: Small hiatal hernia is present. Liver: Normal Spleen: Normal Pancreas: Normal Adrenal glands: The adrenal glands are normal. Gallbladder: Normal Kidneys: Left kidney appears small.. No hydronephrosis is present. There is a 1.6 cm cyst extending from the inferior pole right kidney with a measurement of 39 Hounsfield units. This is not a simple cyst. Continued monitoring is recommended. This was present on the comparison of 01/15/2017. Aorta: Vascular calcification is within the aorta. Some shotty periaortic adenopathy is present. Enl arged adenopathy is not identified. No enlarged renal vascular level abnormality is evident. Inferior vena cava: Normal. CT PELVIS: Loops of bowel within the abdomen and pelvis are normal. There are loops of bowel which are incom pletely distended or lack oral contrast limiting their evaluation. Appendix: Identified Urinary bladder: Normal. Genitourinary structures: Uterus is large and bulky with a large exophytic mass. This was present pre viously. Previous ascites has resolved. Osseous structures: There are scattered suspicious round and extend into the thoracic spine. Findings are suspicious for sclerotic metastases these are new from the comparison study IMPRESSIONS: 1. Large bulky uterus with an exophytic mass compatible with uterine cancer. 2. Multiple scattered sclerotic metastases are identified within the pelvis and axial spine, an inter kyleigh development from January 15, 2017.
== END | disposition home or self-care (01) ==
LOC: RADCTMAIN 11:41
PROVIDERS: ATTEND Internal Medicine Hematology & Oncology
DX: C54.9 Malignant neoplasm of corpus uteri, unspecified (principal); C79.51 Secondary malignant neoplasm of bone
CPT/HCPCS: 71250; 74176; 82565; 84520

== ENCOUNTER → 2017-07-12 | Outpatient (CLI) | payer BC ==
--- NOTE | 2017-07-13 10:06 | ECHOF ---
Referral Reason:R01.1 Cardiac murmur MEASUREMENTS -------- HEIGHT: 132.1 cm WEIGHT: 115.2 kg BP: RVIDd: 2.0 cm (< 3.3) IVSd: 1.2 cm (0.6 - 1.1) LVIDd: 4.2 cm (3.9 - 5.3) LVPWd: 1.0 cm (0.6 - 1.1) IVSs: 1.6 cm LVIDs: 2.6 cm LVPWs: 1.4 cm LA Diam: 2.9 cm (2.7 - 3.8) LAESV Index (A-L): 24.27 ml/m Ao Diam: 3.1 cm (2.0 - 3.7) AV Cusp: 1.4 cm (1.5 - 2.6) LA Diam: 3.1 cm (2.7 - 3.8) MV EXCURSION: 19.783 mm (> 18.000) MV EF SLOPE: 83 mm/s (70 - 150) EPSS: 0.4 cm MV E Boni: 0.71 m/s MV DecT: 212 ms MV A Boni: 0.89 m/s MV E/A Ratio: 0.80 RAP: 5.00 mmHg RVSP: 24.56 mmHg FINDINGS -------- Sinus rhythm. This was a technically adequate study. The left ventricular size is normal. There is mild concentric left ventricular hypertrophy. Overa ll left ventricular systolic function is normal with, an EF between 55 - 60 %. The right ventricle is normal in size. The left atrial size is normal. Normal LA size by volume 22+/-6 ml/m2. The right atrial size is normal. There is mild aortic valve sclerosis. There is no evidence of aortic regurgitation. Mild mitral annular calcification present. Mild mitral regurgitation is present. Mild tricuspid regurgitation present. There is no evidence of pulmonary hypertension. The right v entricular systolic pressure, as measured by Doppler, is 24.56mmHg. There is no pulmonic regurgitation present. The aortic root size is normal. Echo free space represents a pericardial fat pad. CONCLUSIONS -------- 1. The left ventricular size is normal. 2. There is mild concentric left ventricular hypertrophy. 3. Overall left ventricular systolic function is normal with, an EF between 55 - 60 %. 4. There is mild aortic valve sclerosis. 5. Mild mitral annular calcification present. 6. Mild mitral regurgitation is present. 7. Mild tricuspid regurgitation present. 8. There is no evidence of pulmonary hypertension. 9. The right ventricular systolic pressure, as measured by Doppler, is 24.56mmHg. 10. There is no pulmonic regurgitation present. 11. The aortic root size is normal. 12. Echo free space represents a pericardial fat pad. UTILITY BAG ASSEMBLER: Ani Mejia RDCS
== END | disposition home or self-care (01) ==
LOC: RADECHMAIN 16:19
PROVIDERS: ATTEND Family Medicine
DX: I08.1 Rheumatic disorders of both mitral and tricuspid valves (principal)
CPT/HCPCS: 93306

== ENCOUNTER 2017-07-21 20:44 | Inpatient (IN) | payer BC ==
--- NOTE | 2017-07-21 20:48 | ED ---
General Adult HPI - General Stated complaint: Altered Mental Status Time Seen by Provider: 07/21/17 20:46 Source: RN notes reviewed, old records reviewed - History of Present Illness Initial comments: This is a 62-year-old female the ER for evaluation regarding altered mental status, aphasia. She has known stage IV ovarian cancer, patient is decreased progress for last 2 days, no significant treatment. No change in medications. No known fevers. No significant trauma no falls. Patient is on was unable to give complaints. Caregiver notes symptoms began this afternoon and have progressed - Related Data Home Medications Medication Instructions Recorded Confirmed Bisoprol/Hydrochlorothiazide [Ziac 1 tab PO DAILY 01/05/17 07/21/17 5-6.25 MG] Famotidine [Pepcid] 20 mg PO BID 01/05/17 07/21/17 Ferrous Sulfate [Iron] 325 mg PO DAILY 01/05/17 07/21/17 Sertraline HCl [Zoloft] 75 mg PO DAILY 01/05/17 07/21/17 Vit C/E/Zn/Coppr/Lutein/Zeaxan 1 cap PO BID 01/05/17 07/21/17 [Preservision Areds 2 Softgel] Allergies Allergy/AdvReac Type Severity Reaction Status Date / Time No Known Allergies Allergy Verified 07/21/17 21:34 Review of Systems ROS Statement: Those systems with pertinent positive or pertinent negative responses have been documented in the HPI. ROS Other: All systems not noted in ROS Statement are negative. Past Medical History Past Medical History: Cancer, Eye Disorder, Hypertension, Osteoarthritis (OA), Sleep Apnea/CPAP/BIPAP Additional Past Medical History / Comment(s): macular degeneration History of Any Multi-Drug Resistant Organisms: None Reported Past Surgical History: Orthopedic Surgery Additional Past Surgical History / Comment(s): 01/11/17 Exam under anesthesia with bx vaginal apex mass, hysteroscopy, D&C, ORIF bilateral ankles with external device r leg, debridement L leg, skin graft from L thigh to lower L leg. Past Anesthesia/Blood Transfusion Reactions: No Reported Reaction Additional Past Anesthesia/Blood Transfusion Reaction / Comment(s): Pt has received blood in the past without reaction. Past Psychological History: Anxiety, Depression Smoking Status: Never smoker Past Alcohol Use History: Occasional Past Drug Use History: None Reported - Past Family History Sister(s) Family Medical History: Cancer Father Family Medical History: Cancer Additional Family Medical History / Comment(s): Father had leukemia. Father is . Mother Family Medical History: Hypertension Additional Family Medical History / Comment(s): Mother is . General Exam Limitations: altered mental status General appearance: alert, in no apparent distress Head exam: Present: atraumatic, normocephalic, normal inspection Eye exam: Present: normal appearance, PERRL, EOMI. Absent: scleral icterus, conjunctival injection, periorbital swelling ENT exam: Present: normal exam, mucous membranes moist Neck exam: Present: normal inspection. Absent: tenderness, meningismus, lymphadenopathy Respiratory exam: Present: normal lung sounds bilaterally. Absent: respiratory distress, wheezes, rales, rhonchi, stridor Cardiovascular Exam: Present: regular rate, normal rhythm, normal heart sounds. Absent: systolic murmur, diastolic murmur, rubs, gallop, clicks GI/Abdominal exam: Present: soft, normal bowel sounds. Absent: distended, tenderness, guarding, rebound, rigid Extremities exam: Present: normal inspection, full ROM, normal capillary refill. Absent: tenderness, pedal edema, joint swelling, calf tenderness Back exam: Present: normal inspection Neurological exam: Present: alert, oriented X3, CN II-XII intact Psychiatric exam: Present: normal affect, normal mood Skin exam: Present: warm, dry, intact, normal color. Absent: rash Course Vital Signs 07/21/17 07/21/17 07/21/17 20:47 21:00 21:40 Temperature 99.1 F Pulse Rate 93 81 83 Respiratory 20 20 20 Rate Blood Pressure 151/70 146/76 147/67 O2 Sat by Pulse 93 L 99 99 Oximetry 07/21/17 07/21/17 07/21/17 22:00 22:19 22:32 Temperature Pulse Rate 90 88 90 Respiratory 18 18 20 Rate Blood Pressure 141/70 142/73 153/65 O2 Sat by Pulse 99 99 99 Oximetry - Reevaluation(s) Reevaluation #1: 07/21/17 23:04 Patient still not speaking EKG Findings - EKG Comments: EKG Findings:: EKG shows normal sinus rhythm rate of 91, KS 28, QRS 68, QTC 405 Medical Decision Making - Medical Decision Making 62 female the ER for evaluation of altered mental state, aphasia, not speaking. History of CVA CA with metastases, stage IV. Patient is aphasic 4. Positive UTI, we'll treat urinary tract infection admit for hydration, further neurological evaluation and MRI in the morning - Lab Data Result diagrams: 07/21/17 21:03 07/21/17 21:03 Lab Results 07/21/17 07/21/17 07/21/17 Range/Units 21:03 21:03 21:03 WBC 4.5 (3.8-10.6) k/uL RBC 2.69 L (3.80-5.40) m/uL Hgb 9.5 L (11.4-16.0) gm/dL Hct 28.0 L (34.0-46.0) % MCV 104.2 H (80.0-100.0) fL MCH 35.3 H (25.0-35.0) pg MCHC 33.9 (31.0-37.0) g/dL RDW 16.0 H (11.5-15.5) % Plt Count 97 L (150-450) k/uL Neutrophils % (Manual) 85 % Lymphocytes % (Manual) 11 % Monocytes % (Manual) 3 % Eosinophils % (Manual) 1 % Neutrophils # (Manual) 3.83 (1.3-7.7) k/uL Lymphocytes # (Manual) 0.50 L (1.0-4.8) k/uL Monocytes # (Manual) 0.14 (0-1.0) k/uL Eosinophils # (Manual) 0.05 (0-0.7) k/uL Nucleated RBCs 0 (0-0) /100 WBC Polychromasia Present Anisocytosis Slight Macrocytosis Moderate PT (9.0-12.0) sec INR (<1.2) APTT (22.0-30.0) sec Sodium 140 (137-145) mmol/L Potassium 4.5 (3.5-5.1) mmol/L Chloride 106 (98-107) mmol/L Carbon Dioxide 21 L (22-30) mmol/L Anion Gap 13 mmol/L BUN 28 H (7-17) mg/dL Creatinine 1.20 H (0.52-1.04) mg/dL Est GFR (CKD-EPI)AfAm 57 (>60 ml/min/1.73 sqM) Est GFR (CKD-EPI)NonAf 49 (>60 ml/min/1.73 sqM) Glucose 112 H (74-99) mg/dL POC Glucose (mg/dL) (75-99) mg/dL POC Glu [employer] Installer ID Plasma Lactic Acid Ronny (0.7-2.0) mmol/L Calcium 9.1 (8.4-10.2) mg/dL Phosphorus 4.8 H (2.5-4.5) mg/dL Magnesium 2.0 (1.6-2.3) mg/dL Total Bilirubin 0.4 (0.2-1.3) mg/dL AST 16 (14-36) U/L ALT 13 (9-52) U/L Alkaline Phosphatase 57 (38-126) U/L Total Creatine Kinase 21 L (30-135) U/L CK-MB (CK-2) <0.2 (0.0-2.4) ng/mL CK-MB (CK-2) Rel Index Troponin I <0.012 (0.000-0.034) ng/mL Total Protein 6.5 (6.3-8.2) g/dL Albumin 3.7 (3.5-5.0) g/dL Urine Color Urine Appearance (Clear) Urine pH (5.0-8.0) Ur Specific [place] (1.001-1.035) Urine Protein (Negative) Urine Glucose (UA) (Negative) Urine Ketones (Negative) Urine Blood (Negative) Urine Nitrite (Negative) Urine Bilirubin (Negative) Urine Urobilinogen (<2.0) mg/dL Ur Leukocyte Esterase (Negative) Urine RBC (0-5) /hpf Urine WBC (0-5) /hpf Urine WBC Clumps (None) /hpf Ur Squamous Epith Cells (0-4) /hpf Urine Bacteria (None) /hpf 07/21/17 07/21/17 07/21/17 Range/Units 21:03 21:03 21:11 WBC (3.8-10.6) k/uL RBC (3.80-5.40) m/uL Hgb (11.4-16.0) gm/dL Hct (34.0-46.0) % MCV (80.0-100.0) fL MCH (25.0-35.0) pg MCHC (31.0-37.0) g/dL RDW (11.5-15.5) % Plt Count (150-450) k/uL Neutrophils % (Manual) % Lymphocytes % (Manual) % Monocytes % (Manual) % Eosinophils % (Manual) % Neutrophils # (Manual) (1.3-7.7) k/uL Lymphocytes # (Manual) (1.0-4.8) k/uL Monocytes # (Manual) (0-1.0) k/uL Eosinophils # (Manual) (0-0.7) k/uL Nucleated RBCs (0-0) /100 WBC Polychromasia Anisocytosis Macrocytosis PT 9.4 (9.0-12.0) sec INR 0.9 (<1.2) APTT 20.2 L (22.0-30.0) sec Sodium (137-145) mmol/L Potassium (3.5-5.1) mmol/L Chloride (98-107) mmol/L Carbon Dioxide (22-30) mmol/L Anion Gap mmol/L BUN (7-17) mg/dL Creatinine (0.52-1.04) mg/dL Est GFR (CKD-EPI)AfAm (>60 ml/min/1.73 sqM) Est GFR (CKD-EPI)NonAf (>60 ml/min/1.73 sqM) Glucose (74-99) mg/dL POC Glucose (mg/dL) 115 H (75-99) mg/dL POC Glu [employer] Installer ID Cynthia Pereyra Plasma Lactic Acid Ronny 0.9 (0.7-2.0) mmol/L Calcium (8.4-10.2) mg/dL Phosphorus (2.5-4.5) mg/dL Magnesium (1.6-2.3) mg/dL Total Bilirubin (0.2-1.3) mg/dL AST (14-36) U/L ALT (9-52) U/L Alkaline Phosphatase (38-126) U/L Total Creatine Kinase (30-135) U/L CK-MB (CK-2) (0.0-2.4) ng/mL CK-MB (CK-2) Rel Index Troponin I (0.000-0.034) ng/mL Total Protein (6.3-8.2) g/dL Albumin (3.5-5.0) g/dL Urine Color Urine Appearance (Clear) Urine pH (5.0-8.0) Ur Specific [place] (1.001-1.035) Urine Protein (Negative) Urine Glucose (UA) (Negative) Urine Ketones (Negative) Urine Blood (Negative) Urine Nitrite (Negative) Urine Bilirubin (Negative) Urine Urobilinogen (<2.0) mg/dL Ur Leukocyte Esterase (Negative) Urine RBC (0-5) /hpf Urine WBC (0-5) /hpf Urine WBC Clumps (None) /hpf Ur Squamous Epith Cells (0-4) /hpf Urine Bacteria (None) /hpf 07/21/17 Range/Units 22:00 WBC (3.8-10.6) k/uL RBC (3.80-5.40) m/uL Hgb (11.4-16.0) gm/dL Hct (34.0-46.0) % MCV (80.0-100.0) fL MCH (25.0-35.0) pg MCHC (31.0-37.0) g/dL RDW (11.5-15.5) % Plt Count (150-450) k/uL Neutrophils % (Manual) % Lymphocytes % (Manual) % Monocytes % (Manual) % Eosinophils % (Manual) % Neutrophils # (Manual) (1.3-7.7) k/uL Lymphocytes # (Manual) (1.0-4.8) k/uL Monocytes # (Manual) (0-1.0) k/uL Eosinophils # (Manual) (0-0.7) k/uL Nucleated RBCs (0-0) /100 WBC Polychromasia Anisocytosis Macrocytosis PT (9.0-12.0) sec INR (<1.2) APTT (22.0-30.0) sec Sodium (137-145) mmol/L Potassium (3.5-5.1) mmol/L Chloride (98-107) mmol/L Carbon Dioxide (22-30) mmol/L Anion Gap mmol/L BUN (7-17) mg/dL Creatinine (0.52-1.04) mg/dL Est GFR (CKD-EPI)AfAm (>60 ml/min/1.73 sqM) Est GFR (CKD-EPI)NonAf (>60 ml/min/1.73 sqM) Glucose (74-99) mg/dL POC Glucose (mg/dL) (75-99) mg/dL POC Glu [employer] Installer ID Plasma Lactic Acid Ronny (0.7-2.0) mmol/L Calcium (8.4-10.2) mg/dL Phosphorus (2.5-4.5) mg/dL Magnesium (1.6-2.3) mg/dL Total Bilirubin (0.2-1.3) mg/dL AST (14-36) U/L ALT (9-52) U/L Alkaline Phosphatase (38-126) U/L Total Creatine Kinase (30-135) U/L CK-MB (CK-2) (0.0-2.4) ng/mL CK-MB (CK-2) Rel Index Troponin I (0.000-0.034) ng/mL Total Protein (6.3-8.2) g/dL Albumin (3.5-5.0) g/dL Urine Color Yellow Urine Appearance Cloudy H (Clear) Urine pH 5.5 (5.0-8.0) Ur Specific [place] 1.019 (1.001-1.035) Urine Protein 1+ H (Negative) Urine Glucose (UA) Negative (Negative) Urine Ketones Negative (Negative) Urine Blood Moderate H (Negative) Urine Nitrite Positive H (Negative) Urine Bilirubin Negative (Negative) Urine Urobilinogen <2.0 (<2.0) mg/dL Ur Leukocyte Esterase Large H (Negative) Urine RBC 17 H (0-5) /hpf Urine WBC 106 H (0-5) /hpf Urine WBC Clumps Many H (None) /hpf Ur Squamous Epith Cells 5 H (0-4) /hpf Urine Bacteria Many H (None) /hpf - Radiology Data Radiology results: report reviewed (CT brain is negative for acute disease, chest x-ray negative), image reviewed Disposition Clinical Impression: Delirium due to general medical condition, Altered mental status Disposition: ADMITTED IP TO THIS [facility] Condition: Fair Is patient prescribed a controlled substance at d/c from ED?: No Referrals: None,Stated [REFERRING] - 1-2 days
[2017-07-21] MEDS ORDERED: SODIUM CHLORIDE 0.9% 1,000 ML IV STA (20:49)
[2017-07-21 21:13] LABS: Glucose,Whole Blood 115 mg/dL (75-99)
[2017-07-21 21:27] LABS: Albumin 3.7 g/dL (3.5-5.0); Calcium 9.1 mg/dL (8.4-10.2); Phosphorus 4.8 mg/dL (2.5-4.5); Potassium 4.5 mmol/L (3.5-5.1); Total Bilirubin 0.4 mg/dL (0.2-1.3); Total Protein 6.5 g/dL (6.3-8.2)
[2017-07-21 21:28] LABS: Creatine Kinase 21 U/L (30-135)
[2017-07-21 21:29] LABS: Anisocytosis Slight; HGB 9.5 gm/dL (11.4-16.0); MCH 35.3 pg (25.0-35.0); MCHC 33.9 g/dL (31.0-37.0); MCV 104.2 fL (80.0-100.0); Macrocytosis Moderate; Mean Platelet Volume 7.8; RBC 2.69 m/uL (3.80-5.40); WBC 4.5 k/uL (3.8-10.6)
[2017-07-21 21:30] LABS: INR 0.9 (<1.2); Partial Thromboplastin Time 20.2 sec (22.0-30.0); Prothrombin Time 9.4 sec (9.0-12.0)
[2017-07-21 21:41] LABS: Creatine Kinase MB <0.2 ng/mL (0.0-2.4); Troponin I <0.012 ng/mL (0.000-0.034)
--- NOTE | 2017-07-21 21:48 | XR ---
EXAMINATION TYPE: XR chest 2V DATE OF EXAM: 07/21/2017 COMPARISON: NONE HISTORY: Weakness and altered mental status TECHNIQUE: Frontal and lateral views of the chest are obtained. FINDINGS: Heart is enlarged. There is some pulmonary vascular congestion. There is poor inspiration. Bony thorax is intact. IMPRESSION: Congestive heart failure. Right lower lobe pneumonia is possible.
[2017-07-21 21:49] LABS: Eosinophils # (M) 0.05 k/uL (0-0.7); Monocytes # (M) 0.14 k/uL (0-1.0); Neutrophils # (M) 3.83 k/uL (1.3-7.7); Neutrophils % (M) 85 %; Nucleated Red Blood Cells 0 /100 WBC (0-0); Platelet Count 97 k/uL (150-450); Polychromasia Present; Total Cells Counted 100
--- NOTE | 2017-07-21 21:50 | CT ---
EXAMINATION TYPE: CT brain wo con DATE OF EXAM: 07/21/2017 COMPARISON: NONE HISTORY: Altered mental status. CT DLP: 864.7 mGycm Automated exposure control for dose reduction was used. FINDINGS: Ventricles have normal size. There is some hypodensity in the periventricular white matter. The shon rium is intact. There is no mass effect nor midline shift. There is no sign of intracranial hemorrhag e. IMPRESSION: THERE IS SOME WHITE MATTER HYPODENSITY THAT COULD RELATE TO CHRONIC SMALL VESSEL ISCHEMIA. NO ACUTE I NTRACRANIAL ABNORMALITY.
[2017-07-21] MEDS ORDERED: ONDANSETRON 4 MG/2 ML VIAL IVP STA (21:51)
[2017-07-21 22:24] LABS: Appearance,Urine Cloudy (Clear); Bacteria,Urine Many /hpf; Bilirubin,Urine Negative (Negative); Blood,Urine Moderate (Negative); Color,Urine Yellow; Glucose,Urine (UA) Negative (Negative); Ketones,Urine Negative (Negative); Leukocyte Esterase,Urine Large (Negative); Nitrite,Urine Positive (Negative); PH, Urine 5.5 (5.0-8.0); Protein,Urine 1+ (Negative); RBC,Urine 17 /hpf (0-5); Specific Gravity,Urine 1.019 (1.001-1.035); Squamous Epithelial Cell,Urine 5 /hpf (0-4); Urobilinogen,Urine <2.0 mg/dL (<2.0); WBC,Urine 106 /hpf (0-5)
[2017-07-21] MEDS ORDERED: AMPICILLIN-SULBACTAM 3 GM in SODIUM CHLORIDE 0.9% 100 ML IVPB STA (23:03)
--- NOTE | 2017-07-22 04:33 | XR ---
EXAM: XR Chest, 1 View CLINICAL HISTORY: Aspiration TECHNIQUE: Frontal view of the chest. COMPARISON: Chest x-ray dated 07/21/2017 FINDINGS: Lungs: Prominence of the interstitium which may be secondary to low lung volumes versus interstitial edema. No focal consolidation. Pleural space: Unremarkable. No pneumothorax. Heart: Unremarkable. No cardiomegaly. Mediastinum: Unremarkable. Bones/joints: Unremarkable. IMPRESSION: Prominence of the interstitium which may be secondary to low lung volumes versus interstitial edema.
[2017-07-22] MEDS: AMPICILLIN-SULBACTAM 3 GM in SODIUM CHLORIDE 0.9% 100 ML IVPB SCH ×2 (09:03→16:12)
[2017-07-22 09:07] LABS: Cholesterol 249 mg/dL (<200); HDL Cholesterol 45 mg/dL (40-60); LDL Cholesterol,Calculated 165 mg/dL (0-99); Triglycerides 193 mg/dL (<150)
[2017-07-22] MEDS ORDERED: SODIUM CHLORIDE 0.9% 1,000 ML IV SCH (16:15)
[2017-07-22] MEDS ORDERED: ACETAMINOPHEN SUPPOSITORY 650 MG SUPP RECTAL PRN (16:15)
[2017-07-22 17:10] LABS: Glucose,Whole Blood 156 mg/dL (75-99)
--- NOTE | 2017-07-22 17:58 | P.CONS ---
History of Present Illness - Reason for Consult Consult date: 07/22/17 Metastatic ovarian Requesting physician: Hayden Worrell - Chief Complaint unresponsive - History of Present Illness Ms. Wells is a very pleasant female pt of Dr. Israel who presented with intermittent vaginal bleeding in July 2016. She was evaluated by Dr. 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 She was evaluated by Dr. Rabbi Israel at [facility] but was a poor/high risk surgical candidate for surgery. She was seen by Rad/ Onc and started palliative XRT due to recurrent vaginal bleeding and LLQ pain. Completed XRT January 2017, 02/18/17,CA125 was 1655. She started weekly carboplatin/taxol on 02/24/17. Ca 125 was monitored and was 538 on 06/10. In Apr treatment follow up CT CAP revealed improvement of her disease but, there was question of new sclerotic T spine lesions being treatment effect vs new disease so, plan was to continue pt on treatment, her 6th cycle started on 07/15 , she was due for day 8 today. Pt caregivers are at bedside and provided the history of the last week. Pt was at her baseline, alert, oriented x4, using walker, conversing normally, able to get about with help. In the last 48 hours she suddenly fell over in a parking lot but, was responsive quickly and went about her business. Yesterday afternoon she made some confused statements, became progressively less responsive and by evening she was unresponsive, EMS picked pt up and she has not been responsive since. Pt opens eyes briefly, does not answer or respond to verbal cues, eyes open spontaneously but to no particular cue, her arm movements are not purposeful, seem more reflexive. Review of Systems taken from caregivers at bedside Past Medical History Past Medical History: Cancer, Eye Disorder, Hypertension, Osteoarthritis (OA), Sleep Apnea/CPAP/BIPAP Additional Past Medical History / Comment(s): macular degenerationdoes nodt use c pap machine History of Any Multi-Drug Resistant Organisms: None Reported Past Surgical History: Orthopedic Surgery Additional Past Surgical History / Comment(s): 01/11/17 Exam under anesthesia with bx vaginal apex mass, hysteroscopy, D&C, ORIF bilateral ankles with external device r leg, debridement L leg, skin graft from L thigh to lower L leg. Past Anesthesia/Blood Transfusion Reactions: No Reported Reaction Additional Past Anesthesia/Blood Transfusion Reaction / Comm: Pt has received blood in the past without reaction. Past Psychological History: Anxiety, Depression Additional Psychological History / Comment(s): Pt states she has depression due to health problems/cancer. She states she is not suicidal. she resides alone. She is independent. Smoking Status: Never smoker Past Alcohol Use History: Occasional Past Drug Use History: None Reported - Past Family History Sister(s) Family Medical History: Cancer Additional Family Medical History / Comment(s): breast Father Family Medical History: Cancer Additional Family Medical History / Comment(s): Father had leukemia. Father is . Mother Family Medical History: Hypertension Additional Family Medical History / Comment(s): Mother is . cardiac arrest Medications and Allergies Home Medications Medication Instructions Recorded Confirmed Type Bisoprol/Hydrochlorothiazide [Ziac 1 tab PO DAILY 01/05/17 07/21/17 History 5-6.25 MG] Famotidine [Pepcid] 20 mg PO BID 01/05/17 07/21/17 History Ferrous Sulfate [Iron] 325 mg PO DAILY 01/05/17 07/21/17 History Sertraline HCl [Zoloft] 75 mg PO DAILY 01/05/17 07/21/17 History Vit C/E/Zn/Coppr/Lutein/Zeaxan 1 cap PO BID 01/05/17 07/21/17 History [Preservision Areds 2 Softgel] ALPRAZolam [Xanax] 0.5 mg PO TID PRN 07/22/17 07/22/17 History Cyclobenzaprine [Flexeril] 5 mg PO DAILY PRN 07/22/17 07/22/17 History Docusate [Colace] 100 mg PO BID 07/22/17 07/22/17 History Loperamide HCl [Imodium A-D] 2 mg PO TID PRN 07/22/17 07/22/17 History Allergies Allergy/AdvReac Type Severity Reaction Status Date / Time No Known Allergies Allergy Verified 07/22/17 08:27 Physical Exam Vitals: Vital Signs Temp Pulse Pulse Resp BP BP Pulse Ox 07/22/17 12:06 99.7 F H 97 20 173/87 92 L 07/22/17 12:04 100 20 07/22/17 08:57 98.7 F 100 20 172/70 95 07/22/17 08:00 100 20 07/22/17 04:00 97.4 F L 74 22 181/93 99 07/22/17 03:15 97.0 F L 89 20 137/74 07/22/17 01:09 97.0 F L 89 20 137/74 98 07/22/17 00:45 88 18 158/73 99 07/22/17 00:00 98.6 F 88 20 144/71 99 07/21/17 23:50 98.7 F 89 18 136/63 99 07/21/17 23:00 98.5 F 90 20 145/61 99 07/21/17 22:32 90 20 153/65 99 07/21/17 22:19 88 18 142/73 99 07/21/17 22:00 90 18 141/70 99 07/21/17 21:40 83 20 147/67 99 07/21/17 21:00 81 20 146/76 99 07/21/17 20:47 99.1 F 93 20 151/70 93 L Intake and Output 07/22/17 07/22/17 07/22/17 06:59 14:59 22:59 Intake Total 200 Balance 200 Intake: Intake, IV Titration 200 Amount Ampicillin-Sulbactam 3 gm 200 In Sodium Chloride 0.9% 100 ml @ 100 mls/hr IVPB Q8HR [facility] Rx#:[id number] Other: Voiding Method Diaper Diaper # Voids 1 1 Weight 114.5 kg Pt is sitting up in bed, anasarca, very pale, respirations are shallow, no cyanosis or nasal flaring, her eyes oppen to no particular stimulus, pupils are round, 4mm, equal, pt has secretions from her mouth so she is not managing secretions, HR is regular, 3/6 systolic murmur, no irregular heart beats, lungs sounds seem clear but pt does not follow commands, abd palpation did not elicit response, mild distension, no organomegaly. Results CBC & Chem 7: 07/21/17 21:03 07/21/17 21:03 Labs: Abnormal Lab Results - Last 24 Hours (Table) 07/21/17 07/21/17 07/21/17 Range/Units 21:03 21:03 21:03 RBC 2.69 L (3.80-5.40) m/uL Hgb 9.5 L (11.4-16.0) gm/dL Hct 28.0 L (34.0-46.0) % MCV 104.2 H (80.0-100.0) fL MCH 35.3 H (25.0-35.0) pg RDW 16.0 H (11.5-15.5) % Plt Count 97 L (150-450) k/uL Lymphocytes # (Manual) 0.50 L (1.0-4.8) k/uL APTT (22.0-30.0) sec Carbon Dioxide 21 L (22-30) mmol/L BUN 28 H (7-17) mg/dL Creatinine 1.20 H (0.52-1.04) mg/dL Glucose 112 H (74-99) mg/dL POC Glucose (mg/dL) (75-99) mg/dL Phosphorus 4.8 H (2.5-4.5) mg/dL Total Creatine Kinase 21 L (30-135) U/L Triglycerides (<150) mg/dL Cholesterol (<200) mg/dL LDL Cholesterol, Calc (0-99) mg/dL Urine Appearance (Clear) Urine Protein (Negative) Urine Blood (Negative) Urine Nitrite (Negative) Ur Leukocyte Esterase (Negative) Urine RBC (0-5) /hpf Urine WBC (0-5) /hpf Urine WBC Clumps (None) /hpf Ur Squamous Epith Cells (0-4) /hpf Urine Bacteria (None) /hpf 07/21/17 07/21/17 07/21/17 Range/Units 21:03 21:03 21:11 RBC (3.80-5.40) m/uL Hgb (11.4-16.0) gm/dL Hct (34.0-46.0) % MCV (80.0-100.0) fL MCH (25.0-35.0) pg RDW (11.5-15.5) % Plt Count (150-450) k/uL Lymphocytes # (Manual) (1.0-4.8) k/uL APTT 20.2 L (22.0-30.0) sec Carbon Dioxide (22-30) mmol/L BUN (7-17) mg/dL Creatinine (0.52-1.04) mg/dL Glucose (74-99) mg/dL POC Glucose (mg/dL) 115 H (75-99) mg/dL Phosphorus (2.5-4.5) mg/dL Total Creatine Kinase (30-135) U/L Triglycerides 193 H (<150) mg/dL Cholesterol 249 H (<200) mg/dL LDL Cholesterol, Calc 165 H (0-99) mg/dL Urine Appearance (Clear) Urine Protein (Negative) Urine Blood (Negative) Urine Nitrite (Negative) Ur Leukocyte Esterase (Negative) Urine RBC (0-5) /hpf Urine WBC (0-5) /hpf Urine WBC Clumps (None) /hpf Ur Squamous Epith Cells (0-4) /hpf Urine Bacteria (None) /hpf 07/21/17 Range/Units 22:00 RBC (3.80-5.40) m/uL Hgb (11.4-16.0) gm/dL Hct (34.0-46.0) % MCV (80.0-100.0) fL MCH (25.0-35.0) pg RDW (11.5-15.5) % Plt Count (150-450) k/uL Lymphocytes # (Manual) (1.0-4.8) k/uL APTT (22.0-30.0) sec Carbon Dioxide (22-30) mmol/L BUN (7-17) mg/dL Creatinine (0.52-1.04) mg/dL Glucose (74-99) mg/dL POC Glucose (mg/dL) (75-99) mg/dL Phosphorus (2.5-4.5) mg/dL Total Creatine Kinase (30-135) U/L Triglycerides (<150) mg/dL Cholesterol (<200) mg/dL LDL Cholesterol, Calc (0-99) mg/dL Urine Appearance Cloudy H (Clear) Urine Protein 1+ H (Negative) Urine Blood Moderate H (Negative) Urine Nitrite Positive H (Negative) Ur Leukocyte Esterase Large H (Negative) Urine RBC 17 H (0-5) /hpf Urine WBC 106 H (0-5) /hpf Urine WBC Clumps Many H (None) /hpf Ur Squamous Epith Cells 5 H (0-4) /hpf Urine Bacteria Many H (None) /hpf Microbiology - Last 24 Hours (Table) 07/21/17 22:00 Urine Culture - Preliminary Urine,Catheterized CT Scan - head: report reviewed Assessment and Plan (1) Altered mental status Current Visit: Yes Status: Acute Priority: High Code(s): R41.82 - ALTERED MENTAL STATUS, UNSPECIFIED SNOMED Code(s): 996518673 (2) Endometrial cancer Current Visit: Yes Status: Acute Priority: High Code(s): C54.1 - MALIGNANT NEOPLASM OF ENDOMETRIUM SNOMED Code(s): 329409378 Plan: Pt condition has declined very rapidly. There is no gross finding for why her mental status changed so quickly, non-contrast CT was non-diagnostic. MRI has been requested but, may have to be delayed as renal function is compromised and pt has symptoms of fluid retention at this time. It was discussed with caregivers at bedside concerns that pt may not recover from this presentation and that comfort care may be the best thing for the patient. Family meeting has been requested for tomorrow with sister who is power of senior trial attorney. Will continue with supportive care and abx and see how pt does in the next 24 hours. Plan of care to follow.
[2017-07-22] MEDS ORDERED: cloNIDine 0.1 MG/24HR PATCH 1 PATCH PATCH TRANSDERM SCH (21:00)
[2017-07-22] MEDS: LACTATED RINGERS 1,000 ML IV SCH (22:06)
--- NOTE | 2017-07-22 22:13 | HP ---
HISTORY AND PHYSICAL DATE OF SERVICE: 07/22/2017. DATE OF ADMISSION: 07/21/2017 PRESENTING COMPLAINT: Lethargic. HISTORY OF PRESENTING COMPLAINT: This is a 62-year-old patient of Dr. Sevilla, also following with to Dr. Israel the oncologist. The patient has a stage IV endometrial cancer with involvement of the lymph nodes and the patient also has a bulky endometrium. Patient was treated with radiation therapy. Patient did get 5 cycles of chemotherapy and was actually responding. The patient has had a 12-hour caregiver at home and the patient is able to do light cooking, get to the bathroom. The patient apparently on Wednesday developed some slurred speech, dizzy and EMS did come out and patient did not want to be taken to the hospital. Subsequently this afternoon, patient became more tired, lethargic, confused and was brought into the ER. The patient remains lethargic. The patient is found to have a pretty significant UTI, was started on IV Unasyn. The patient has remained lethargic the whole day; in fact, I saw this patient this afternoon. Nurse Zepeda told me that the patient had just about arousable, but not following commands, not able to take anything by mouth. The patient does respond to commands, but dozes off right away. Some of the history is obtained by calling Dr. Israel, who is the patient's oncologist. The patient also has a dry wound of the left lower extremity. REVIEW OF SYSTEMS: Cannot be obtained, as the patient is lethargic. PAST MEDICAL HISTORY: Chronic low back pain, anxiety, depression, endometrial stage IV cancer with peritoneal metastasis. PAST SURGICAL HISTORY: Orthopedic surgery, D and C, ORIF past bilateral ankles with external device, right leg, skin graft from left thigh to left lower leg. PSYCH HISTORY: Anxiety, depression. SOCIAL HISTORY: She lives alone, has about 12 hours of help a day. No smoking. Alcohol occasionally. FAMILY HISTORY: Breast cancer. HOME MEDICATIONS: 1. Imodium 82 mg p.o. t.i.d. p.r.n. 2. Colace 100 mg p.o. b.i.d. 3. Xanax 0.5 p.o. t.i.d. p.r.n. 4. Flexeril 5 mg p.o. daily p.r.n. 5. PreserVision Areds2 soft gel 1 capsule b.i.d. 6. Zoloft 25 p.o. daily. 7. Iron 325 p.o. daily. 8. Pepcid 20 mg p.o. b.i.d. 9. Ziac 5/6.25, 1 tablet p.o. daily. ALLERGIES: None. EXAMINATION: Initially, the patient was afebrile, but this late afternoon, the patient had a temperature of 100.8, pulse 99, respirations 22, blood pressure 166/84, pulse ox 92% on 2L. GENERAL APPEARANCE: Well-built, BMI of 46.2, lying in the bed, lethargic, just about arousable. EYES: Pupils equal. Conjunctivae normal. HEENT: External nose and ears normal. Oral cavity somewhat dry. NECK: JVD unable to assess. Mass not palpable. RESPIRATORY: Effort normal. LUNGS: Slightly decreased breath sounds. CARDIOVASCULAR: First and second sounds normal. No edema. ABDOMEN: Soft, nontender. Liver and spleen not palpable. LYMPHATIC: No lymph node palpable in neck and axilla. PSYCHIATRY: Patient is barely arousable. NEUROLOGICAL: Pupils equal, do respond. Plantars are downgoing. Does move all the limbs. DERMATOLOGICAL: Some dry skin on the left lower extremity just above the ankle. White count 4.5, hemoglobin 9.5, platelets 97. Potassium 4.5, BUN 28, creatinine 1.20. UA positive for leuko esterase, WBC, positive for nitrite. CT scan of the brain: Nothing acute. ASSESSMENT: 1. Possible acute metabolic encephalopathy from severe urinary tract infection. 2. Urinary tract infection. Patient does not have any focal symptoms to suggest a stroke, especially given in view the patient has a fever and a very infected- appearing urine. 3. Endometrial stage IV cancer, getting chemotherapy. 4. Chronic gait dysfunction, uses a walker. 5. Anxiety, depression, not otherwise specified. 6. Bicytopenia, likely from underlying chemotherapy. 7. Dehydration with elevated BUN and creatinine. 8. Essential hypertension. PLAN: Patient is on IV Unasyn, IV fluids. For the blood pressure, will add a Catapres patch. Will do aspiration precautions. The patient has been n.p.o. because very lethargic. ADVANCED CARE PLANNING: I called the patient's sister and spoke to her. Her name is Gaby Red. The patient is her own decision maker has no appointed DPOA, though the sister amongst all the siblings is closest to her and every time she was asked about end of life care, the patient would say you decide what is best for me. I did talk to the sister that in case she was to go downhill, what we do. She was not sure at this point. I did speak to Dr. Israel, to whom the patient is well known. He said the patient has been responding to treatment, but if she was to have a cardiac or a pulmonary arrest, he did not think it will be the best for the patient to be resuscitated in that being the case and of course in the meantime, we will keep treating the patient. When I did convey this to the sister yet again, different things were talked about. Time for advanced care planning was about 20-25 minutes in addition to the H and P. sister will get back to me about the code status. The patient at present time remains FULL CODE. MMODL / IJN: [id number] /
--- NOTE | 2017-07-22 23:18 | P.CNNES ---
History of Present Illness Consult date: 07/22/17 Reason for Consult: Patient with altered mental status. History of Present Illness: This patient is a 62-year-old right-handed white female who was admitted to the [facility] with symptoms of altered mental status and increasing lethargy. Patient apparently showed a rapid decline in her mental status over the last 2 days. She has remained afebrile. She was brought into the emergency room where she was evaluated by Dr. Worrell. Patient has a known history of stage IV ovarian cancer. She was sent for a computed tomography scan of the brain which revealed some white matter hypodensity suggesting chronic small vessel ischemia. No acute intracranial abnormality was noted. Patient remained aphasic in the ER and was very hard to follow commands. Laboratory testing revealed her to have evidence of an acute urinary tract infection. She is now been admitted to hospital for hydration and further antibiotic therapy. She is scheduled for further evaluation with MRI of the brain to be done tomorrow. The patient was admitted to the medical floor. She remains very lethargic and obtunded. She does not arouse sufficiently enough to follow any commands. As noted she does have stage IV ovarian cancer. Case was discussed today with Dr. Dietz. He is going to discuss CODE STATUS with the patient's sister and other family members later this evening. Patient does arouse minimally to sternal rub. Once again she is not able to follow any commands. He has noted MRI of the brain is to be done tomorrow for further evaluation of possible metastatic lesion to the brain. At this time she is very obtunded and very difficult to obtain history from this patient due to her obtundation. Neurology is now been consulted for further evaluation and recommendations. Review of Systems ROS unobtainable: due to mental status Constitutional: Denies chills, Denies fever Eyes: denies blurred vision, denies pain Ears, nose, mouth and throat: Denies headache, Denies sore throat Cardiovascular: Denies chest pain, Denies shortness of breath Respiratory: Denies cough Gastrointestinal: Denies abdominal pain, Denies diarrhea, Denies nausea, Denies vomiting Genitourinary: Denies dysuria, Denies hematuria Musculoskeletal: Denies myalgias Integumentary: Denies pruritus, Denies rash Neurological: Reports aphasia, Reports change in mentation, Reports change in speech, Reports confusion, Denies numbness, Denies weakness Psychiatric: Denies anxiety, Denies depression Endocrine: Denies fatigue, Denies weight change Past Medical History Past Medical History: Cancer, Eye Disorder, Hypertension, Osteoarthritis (OA), Sleep Apnea/CPAP/BIPAP Additional Past Medical History / Comment(s): macular degenerationdoes nodt use c pap machine History of Any Multi-Drug Resistant Organisms: None Reported Past Surgical History: Orthopedic Surgery Additional Past Surgical History / Comment(s): 01/11/17 Exam under anesthesia with bx vaginal apex mass, hysteroscopy, D&C, ORIF bilateral ankles with external device r leg, debridement L leg, skin graft from L thigh to lower L leg. Past Anesthesia/Blood Transfusion Reactions: No Reported Reaction Additional Past Anesthesia/Blood Transfusion Reaction / Comment(s): Pt has received blood in the past without reaction. Past Psychological History: Anxiety, Depression Additional Psychological History / Comment(s): Pt states she has depression due to health problems/cancer. She states she is not suicidal. she resides alone. She is independent. Smoking Status: Never smoker Past Alcohol Use History: Occasional Past Drug Use History: None Reported - Past Family History Sister(s) Family Medical History: Cancer Additional Family Medical History / Comment(s): breast Father Family Medical History: Cancer Additional Family Medical History / Comment(s): Father had leukemia. Father is . Mother Family Medical History: Hypertension Additional Family Medical History / Comment(s): Mother is . cardiac arrest Medications and Allergies Home Medications Medication Instructions Recorded Confirmed Type Bisoprol/Hydrochlorothiazide [Ziac 1 tab PO DAILY 01/05/17 07/21/17 History 5-6.25 MG] Famotidine [Pepcid] 20 mg PO BID 01/05/17 07/21/17 History Ferrous Sulfate [Iron] 325 mg PO DAILY 01/05/17 07/21/17 History Sertraline HCl [Zoloft] 75 mg PO DAILY 01/05/17 07/21/17 History Vit C/E/Zn/Coppr/Lutein/Zeaxan 1 cap PO BID 01/05/17 07/21/17 History [Preservision Areds 2 Softgel] ALPRAZolam [Xanax] 0.5 mg PO TID PRN 07/22/17 07/22/17 History Cyclobenzaprine [Flexeril] 5 mg PO DAILY PRN 07/22/17 07/22/17 History Docusate [Colace] 100 mg PO BID 07/22/17 07/22/17 History Loperamide HCl [Imodium A-D] 2 mg PO TID PRN 07/22/17 07/22/17 History Allergies Allergy/AdvReac Type Severity Reaction Status Date / Time No Known Allergies Allergy Verified 07/22/17 08:27 Physical Examination - Vital Signs Vital Signs: Vital Signs Temp Pulse Pulse Resp BP BP Pulse Ox 07/22/17 16:28 99 22 07/22/17 16:22 100.8 F H 99 22 166/84 92 L 07/22/17 12:06 99.7 F H 97 20 173/87 92 L 07/22/17 12:04 100 20 07/22/17 08:57 98.7 F 100 20 172/70 95 07/22/17 08:00 100 20 07/22/17 04:00 97.4 F L 74 22 181/93 99 07/22/17 03:15 97.0 F L 89 20 137/74 07/22/17 01:09 97.0 F L 89 20 137/74 98 07/22/17 00:45 88 18 158/73 99 07/22/17 00:00 98.6 F 88 20 144/71 99 07/21/17 23:50 98.7 F 89 18 136/63 99 07/21/17 23:00 98.5 F 90 20 145/61 99 07/21/17 22:32 90 20 153/65 99 07/21/17 22:19 88 18 142/73 99 07/21/17 22:00 90 18 141/70 99 07/21/17 21:40 83 20 147/67 99 07/21/17 21:00 81 20 146/76 99 07/21/17 20:47 99.1 F 93 20 151/70 93 L Intake and Output 07/22/17 07/22/17 07/22/17 06:59 14:59 22:59 Intake Total 200 Balance 200 Intake: Intake, IV Titration 200 Amount Ampicillin-Sulbactam 3 gm 200 In Sodium Chloride 0.9% 100 ml @ 100 mls/hr IVPB Q8HR [facility] Rx#:[id number] Other: Voiding Method Diaper Diaper Diaper # Voids 1 1 Weight 114.5 kg - Constitutional General appearance: average body habitus, cooperative - EENT EENT: PERRL, mucous membranes moist - Respiratory Respiratory: lungs clear, normal breath sounds - Cardiovascular Cardiovascular: regular rate, normal S1, normal S2 Extremities: no peripheral edema bilaterally - Gastrointestinal Gastrointestinal: normoactive bowel sounds - Integumentary Integumentary: normal - Neurologic Cranial nerve examination: PERRL, VFF, face symmetric, intact gag reflex, intact corneal reflex Speech examination: global aphasia Sensorimotor examination: intact Motor examination - right side: 2/5: biceps, triceps, wrist flexion, wrist extension, analysis or research safety inspector, hip flexors, knee extensors, dorsiflexion, toe extension (EHL) , plantarflexion Motor examination - left side: 2/5: biceps, triceps, wrist flexion, wrist extension, analysis or research safety inspector, hip flexors, knee extensors, dorsiflexion, toe extension (EHL) , plantarflexion Detailed sensory examination: intact Reflex and gait examination: intact Reflexes: 1+: ankle, bicep, knee, tricep - Musculoskeletal Musculoskeletal: no pain - Psychiatric Psychiatric: mood/affect appropriate, cooperative Results - Laboratory Findings CBC and BMP: 07/21/17 21:03 07/21/17 21:03 Abnormal Lab Findings: Abnormal Labs 07/21/17 07/21/17 07/21/17 21:03 21:03 21:03 RBC 2.69 L Hgb 9.5 L Hct 28.0 L MCV 104.2 H MCH 35.3 H RDW 16.0 H Plt Count 97 L Lymphocytes # (Manual) 0.50 L APTT Carbon Dioxide 21 L BUN 28 H Creatinine 1.20 H Glucose 112 H POC Glucose (mg/dL) Phosphorus 4.8 H Total Creatine Kinase 21 L Triglycerides Cholesterol LDL Cholesterol, Calc Urine Appearance Urine Protein Urine Blood Urine Nitrite Ur Leukocyte Esterase Urine RBC Urine WBC Urine WBC Clumps Ur Squamous Epith Cells Urine Bacteria 07/21/17 07/21/17 07/21/17 21:03 21:03 21:11 RBC Hgb Hct MCV MCH RDW Plt Count Lymphocytes # (Manual) APTT 20.2 L Carbon Dioxide BUN Creatinine Glucose POC Glucose (mg/dL) 115 H Phosphorus Total Creatine Kinase Triglycerides 193 H Cholesterol 249 H LDL Cholesterol, Calc 165 H Urine Appearance Urine Protein Urine Blood Urine Nitrite Ur Leukocyte Esterase Urine RBC Urine WBC Urine WBC Clumps Ur Squamous Epith Cells Urine Bacteria 07/21/17 07/22/17 22:00 17:07 RBC Hgb Hct MCV MCH RDW Plt Count Lymphocytes # (Manual) APTT Carbon Dioxide BUN Creatinine Glucose POC Glucose (mg/dL) 156 H Phosphorus Total Creatine Kinase Triglycerides Cholesterol LDL Cholesterol, Calc Urine Appearance Cloudy H Urine Protein 1+ H Urine Blood Moderate H Urine Nitrite Positive H Ur Leukocyte Esterase Large H Urine RBC 17 H Urine WBC 106 H Urine WBC Clumps Many H Ur Squamous Epith Cells 5 H Urine Bacteria Many H Assessment and Plan (1) Acute encephalopathy Current Visit: Yes Status: Acute Code(s): G93.40 - ENCEPHALOPATHY, UNSPECIFIED SNOMED Code(s): 09831707 (2) Delirium due to general medical condition Current Visit: Yes Status: Acute Code(s): F05 - DELIRIUM DUE TO KNOWN PHYSIOLOGICAL CONDITION SNOMED Code(s): 5369602 (3) Endometrial cancer Current Visit: Yes Status: Acute Priority: High Code(s): C54.1 - MALIGNANT NEOPLASM OF ENDOMETRIUM SNOMED Code(s): 181766517 (4) Ovarian cancer Current Visit: Yes Status: Acute Code(s): C56.9 - MALIGNANT NEOPLASM OF UNSPECIFIED OVARY SNOMED Code(s): 990096525 Plan: This patient is a 62-year-old female with stage IV ovarian cancer. Patient was admitted to hospital with sudden change in mental status over the last few days at home. She was admitted through the emergency room and was seen initially in the ER doctor Gm. She underwent an initial computed tomography scan of the brain results which are noted above. Since admission to the hospital the patient is becoming more obtunded. She is very hard to arouse at this time for full neurological assessment. She is withdrawing to pain only. We have recommended if possible the patient may undergo MRI of the brain tomorrow for further evaluation to rule out metastatic lesions to the brain. This case was discussed at length today with Dr. Dietz. He is aware of this patient's very poor neurological status at this time. He will be talking to the patient's sister and other family members regarding CODE STATUS. He may also consider comfort care measures or hospice care given the advanced stage of her ovarian cancer. We will continue close neurological follow-up for the patient during this admission. Overall prognosis at this time remains very guarded. Time with Patient: Greater than 30
[2017-07-23] MEDS: AMPICILLIN-SULBACTAM 3 GM in SODIUM CHLORIDE 0.9% 100 ML IVPB SCH ×3 (00:04→16:07)
[2017-07-23] MEDS ORDERED: SCOPOLAMINE 1.5MG/72HR PATCH TRANSDERM SCH (05:15)
[2017-07-23] MEDS: LACTATED RINGERS 1,000 ML IV SCH ×2 (05:49→14:24)
[2017-07-23 06:33] LABS: Glucose,Whole Blood 110 mg/dL (75-99)
[2017-07-23 06:53] LABS: Anisocytosis Slight; Basophils % (A) 0 %; Eosinophils % (A) 0 %; HCT 24.7 % (34.0-46.0); HGB 8.1 gm/dL (11.4-16.0); Lymphocytes # (A) 0.3 k/uL (1.0-4.8); Lymphocytes % (A) 5 %; MCH 34.6 pg (25.0-35.0); MCHC 32.6 g/dL (31.0-37.0); MCV 106.1 fL (80.0-100.0); Macrocytosis Moderate; Mean Platelet Volume 7.4; Monocytes # (A) 0.2 k/uL (0-1.0); Monocytes % (A) 4 %; Neutrophils % (A) 90 %; RBC 2.33 m/uL (3.80-5.40); RDW 16.1 % (11.5-15.5); WBC 5.6 k/uL (3.8-10.6)
[2017-07-23 06:55] LABS: Platelet Count 67 k/uL (150-450)
[2017-07-23 07:04] LABS: Potassium 4.2 mmol/L (3.5-5.1)
[2017-07-23 11:36] LABS: Glucose,Whole Blood 109 mg/dL (75-99)
[2017-07-23 16:47] LABS: Glucose,Whole Blood 99 mg/dL (75-99)
--- NOTE | 2017-07-23 16:49 | PN ---
PROGRESS NOTE DATE OF SERVICE: 07/23/17 PRESENT COMPLAINT: Lethargic. INTERVAL HISTORY: This patient with stage IV endometrial cancer is actually responding to chemotherapy, but not a very good baseline functional status, came in with altered mental status. The patient really has not much woken up since yesterday. I saw this patient this afternoon, she does open her eyes, but does not really follow commands. Still very lethargic. Somewhat rockiness in the chest. The patient's other sister and other [id number] are present, different ones than the ones I talked to last night. REVIEW OF SYSTEMS: The patient still remains lethargic. CURRENT MEDICATIONS: Include IV Unasyn. PHYSICAL EXAMINATION: T-max 100.8, but has been afebrile today, pulse 80, respiration 30, blood pressure 168/70, pulse ox 98% on 4 L. GENERAL APPEARANCE: Lying in bed, lethargic, just about arousable. EYES: Pupils equal. Conjunctivae normal. HEENT: External appearance of nose and ears normal. Oral cavity dry. NECK: JVD unable to assess. Mass not palpable. RESPIRATORY: Effort increased. Lungs, decreased breath sounds. Some expiratory crackles. CARDIOVASCULAR: 1st and 2nd sounds normal. No edema. ABDOMEN: Soft, nontender. Liver and spleen not palpable. PSYCHIATRY: Patient is very arousable. NEUROLOGICAL: Pupils are equal. Plantars are downgoing. Does wake up to command but does not really follow commands. INVESTIGATIONS: White count 5.6, hemoglobin 8.1, platelets 67, potassium 4.2, BUN 26, creatinine 1.11. Urine cultures growing gram-negative bacilli. ASSESSMENT: 1. Possible acute metabolic encephalopathy from severe urinary tract infection, but patient still not responding too well by the time I saw this patient this afternoon. 2. Acute urinary tract infection showing gram-negative bacilli. 3. Endometrial stage IV cancer, getting chemotherapy, being followed by Dr. Israel. 4. Chronic gait dysfunction, uses a walker. 5. Anxiety and depression, not otherwise specified. 6. Bicytopenia, likely from underlying chemotherapy. 7. Dehydration on presentation. 8. Essential hypertension. 9. Chronic gait dysfunction uses a walker. PLAN: The patient's other sister Nichole and [id number] were at the bedside. I did talk to them about the code status. They said the patient's one sister wants the patient to be a FULL CODE. I did say from my standpoint patient to keep getting the current treatment of antibiotics, but in case she was to have a cardiac arrest and as per Dr. Israel, it may not be the best option to resuscitate the patient. The patient remains to be lethargic when I saw the patient. I got a call from Dr. Mead, who I discussed the case with. Neurology is already on the case. Will get opinion from Infectious Disease. Will also get a MR done to see if that will help decide if there is more of a central cause like for example brainstem stroke that may be causing a manifesting of features. Prognosis is guarded. I also spoke to Dr. Forde from Infectious Disease. Total time spent today was about 45 minutes with over 25 minutes of discussion. AMY / KENDAL: [id number] /
[2017-07-23] MEDS ORDERED: LORazepam 2 MG/ML INJ IV ONE (17:00)
[2017-07-23] MEDS ORDERED: FUROSEMIDE 10 MG/ML 4 ML VIAL IV STA (17:45)
--- NOTE | 2017-07-23 17:45 | P.PN ---
Subjective Progress Note Date: 07/23/17 the patient remains obtunded. She is moving all extremities, and responding to touch and pressure. She does open her eyes off and on, but is not responding to verbal commands. She does not appear to be in pain Objective - Vital Signs Vital signs: Vital Signs Temp 99.8 F H 07/23/17 16:02 Pulse 66 07/23/17 16:02 Resp 28 H 07/23/17 16:02 BP 145/65 07/23/17 16:02 Pulse Ox 95 07/23/17 16:02 Intake & Output 07/22/17 07/23/17 07/23/17 18:59 06:59 18:59 Intake Total 200 1645 160 Balance 200 1645 160 Weight 116 kg Intake: Intake, IV Titration 200 1645 160 Amount Ampicillin-Sulbactam 3 gm 200 200 100 In Sodium Chloride 0.9% 100 ml @ 100 mls/hr IVPB Q8HR [facility] Rx#:[id number] Lactated Ringers 1,000 ml 1125 60 @ 125 mls/hr IV .Q8H [facility] Rx#:[id number] Sodium Chloride 0.9% 1, 320 000 ml @ 40 mls/hr IV . Q24H [facility] Rx#:[id number] Other: Voiding Method Diaper Diaper Indwelling Catheter # Voids 1 - Constitutional General appearance: Present: no acute distress - EENT Eyes: Present: PERRLA - Respiratory Details: prominent upper airway secretions Respiratory: bilateral: diminished - Cardiovascular Rhythm: regular Heart sounds: normal: S1, S2 - Gastrointestinal General gastrointestinal: Present: normal bowel sounds, soft - Integumentary Integumentary: Present: normal - Neurologic Neurologic Comment(s): mental status, noted above. Moving all 4 extremities - Musculoskeletal Musculoskeletal: Present: strength equal bilaterally - Labs CBC & Chem 7: 07/23/17 06:14 07/23/17 06:14 Labs: Abnormal Lab Results - Last 24 Hours (Table) 07/23/17 07/23/17 07/23/17 Range/Units 06:14 06:14 06:32 RBC 2.33 L (3.80-5.40) m/uL Hgb 8.1 L (11.4-16.0) gm/dL Hct 24.7 L (34.0-46.0) % MCV 106.1 H (80.0-100.0) fL RDW 16.1 H (11.5-15.5) % Plt Count 67 L (150-450) k/uL Lymphocytes # 0.3 L (1.0-4.8) k/uL BUN 26 H (7-17) mg/dL Creatinine 1.11 H (0.52-1.04) mg/dL Glucose 109 H (74-99) mg/dL POC Glucose (mg/dL) 110 H (75-99) mg/dL 07/23/17 Range/Units 11:34 RBC (3.80-5.40) m/uL Hgb (11.4-16.0) gm/dL Hct (34.0-46.0) % MCV (80.0-100.0) fL RDW (11.5-15.5) % Plt Count (150-450) k/uL Lymphocytes # (1.0-4.8) k/uL BUN (7-17) mg/dL Creatinine (0.52-1.04) mg/dL Glucose (74-99) mg/dL POC Glucose (mg/dL) 109 H (75-99) mg/dL Microbiology - Last 24 Hours (Table) 07/21/17 22:00 Urine Culture - Preliminary Urine,Catheterized Gram Neg Bacilli Assessment and Plan (1) Altered mental status Narrative/Plan: the patient still remains very obtunded. She does appear to be more active compared to overnight, as she is moving her extremities,and appears to be responding to pressure and touch. The cause of the same is still unclear. - The case was discussed in detail with the admitting service. It is possible that this is just prolonged metabolic encephalopathy from her UTI. Generally, though, some improvement would be expected by now with hydration and antibiotics. Her hemodynamics otherwise are not in the sepsis spectrum. Given the type of for cancer, and stage of her treatment, brain metastasis or leptomeningeal disease would be very unlikely. In addition her presentation was quite acute. - The patient's creatinine is improved. We will therefore attempts to do an MRI today, assuming the patient is cooperative. She will be given a low-dose of Ativan for the test. I discussed with IM, that if the MRI was negative, a lumbar puncture could be considered if felt to be appropriate by them. ID will also be consulted. Neurology is following. The above was discussed in detail with department members of the patient's family at her bedside Current Visit: Yes Status: Acute Priority: High Code(s): R41.82 - ALTERED MENTAL STATUS, UNSPECIFIED SNOMED Code(s): 268813338 (2) Ovarian cancer Narrative/Plan: The patient is status post 5/6 of her planned cycles. Based on her tumor markers she appears to be responding.. Tolerance has been reasonable. She does not have any neutropenia or leukopenia at this time. As noted, brain metastasis or leptomeningeal disease with her kind of cancer, especially at this stage, would be very unlikely. - At a long discussion with her family regarding CODE STATUS. Given that her underlying cancer, even though it is responding currently, is likely not curable (as she was not felt to be a surgical candidate), and the patient has underlying medical debility, I recommended that we should continue aggressive medical care. However if the patient were to deteriorate to the point where intubation or CPR would be needed, in my opinion DNR approach in that case would be more reasonable. The same was also discussed with the admitting service. Current Visit: Yes Status: Acute Code(s): C56.9 - MALIGNANT NEOPLASM OF UNSPECIFIED OVARY SNOMED Code(s): 077487616 Time with Patient: Greater than 30 (I)
[2017-07-23] MEDS: PIPERACILLIN-TAZOBACTAM 3.375 GM in DEXTROSE/WATER 1 50ML.BAG IVPB SCH ×2 (18:02→23:10)
[2017-07-23 21:27] LABS: Glucose,Whole Blood 92 mg/dL (75-99)
--- NOTE | 2017-07-24 00:02 | P.PN ---
Subjective Progress Note Date: 07/23/17 This patient is a 62-year-old female being evaluated for acute encephalopathy and obtundation. Patient has a history of stage IV ovarian cancer. She has been very lethargic since admission to hospital. She was scheduled for MRI of the brain today but this could not be completed as she became short of breath when flat on the gurney. She is going to be sent again tomorrow for possible retry. The patient remained very much obtunded and does not open eyes. According to 2 of her daughters at the bedside she was clearly much more alert and awake about a week ago. She has shown a rapid decline. She is being followed by oncology as she has a known history of underlying ovarian cancer stage IV. Since the patient was unable to have MRI of the brain today we are recommending that she be evaluated for lumbar puncture by anesthesia tomorrow for further evaluation of altered mental status. Would recommend to check for routine as well as special studies for possibility of encephalitis as well in this patient. Patient also has a known history of stage IV ovarian cancer. She should have spinal fluid evaluated for leptomeningeal carcinomatosis. We will continue close neurological follow-up for this patient. Her overall prognosis at this time remains very guarded. Objective - Vital Signs Vital signs: Vital Signs Temp 97.8 F 07/23/17 20:00 Pulse 82 07/23/17 20:00 Resp 20 07/23/17 20:00 BP 121/73 07/23/17 20:00 Pulse Ox 96 07/23/17 20:00 Intake & Output 07/23/17 07/23/17 07/24/17 06:59 18:59 06:59 Intake Total 1645 160 50 Output Total 1600 Balance 1645 160 -1550 Weight 116 kg Intake: IV 50 Piperacillin-Tazobactam 3 50 .375 gm In Dextrose/Water 1 50ml.bag @ 12.5 mls/hr IVPB Q8HR [facility] Rx#: [id number] Intake, IV Titration 1645 160 Amount Ampicillin-Sulbactam 3 gm 200 100 In Sodium Chloride 0.9% 100 ml @ 100 mls/hr IVPB Q8HR [facility] Rx#:[id number] Lactated Ringers 1,000 ml 1125 60 @ 125 mls/hr IV .Q8H [facility] Rx#:[id number] Sodium Chloride 0.9% 1, 320 000 ml @ 40 mls/hr IV . Q24H [facility] Rx#:[id number] Oral 0 Output: Urine 1600 Other: Voiding Method Diaper Indwelling Catheter Indwelling Catheter - Exam Physical examination: PHYSICAL EXAMINATION: Patient is obtunded laying in bed. She does not open her eyes. VITAL SIGNS: Blood pressure is [121/73]. Heart rate is [82]. Respiration is [20] . Temperature is [97.8]. HEENT: Head is atraumatic, neck is supple, there were no carotid bruits. CHEST: Lungs are clear to auscultation and percussion. CARDIAC: S1, S2 normal rate and rhythm. There is no murmur. ABDOMEN: Soft and nontender. Bowel sounds are present. EXTREMITIES: There is no pedal edema. Peripheral pulses are present. Neurological examination: Patient remains obtunded in bed. She does not open eyes or follow any commands. She remains aphasic. She does arouse minimally to sternal rub. - Labs CBC & Chem 7: 07/23/17 06:14 07/23/17 06:14 Labs: Abnormal Lab Results - Last 24 Hours (Table) 07/23/17 07/23/17 07/23/17 Range/Units 06:14 06:14 06:32 RBC 2.33 L (3.80-5.40) m/uL Hgb 8.1 L (11.4-16.0) gm/dL Hct 24.7 L (34.0-46.0) % MCV 106.1 H (80.0-100.0) fL RDW 16.1 H (11.5-15.5) % Plt Count 67 L (150-450) k/uL Lymphocytes # 0.3 L (1.0-4.8) k/uL BUN 26 H (7-17) mg/dL Creatinine 1.11 H (0.52-1.04) mg/dL Glucose 109 H (74-99) mg/dL POC Glucose (mg/dL) 110 H (75-99) mg/dL 07/23/17 Range/Units 11:34 RBC (3.80-5.40) m/uL Hgb (11.4-16.0) gm/dL Hct (34.0-46.0) % MCV (80.0-100.0) fL RDW (11.5-15.5) % Plt Count (150-450) k/uL Lymphocytes # (1.0-4.8) k/uL BUN (7-17) mg/dL Creatinine (0.52-1.04) mg/dL Glucose (74-99) mg/dL POC Glucose (mg/dL) 109 H (75-99) mg/dL Microbiology - Last 24 Hours (Table) 07/21/17 22:00 Urine Culture - Final Urine,Catheterized Escherichia coli Assessment and Plan (1) Acute encephalopathy Current Visit: Yes Status: Acute Code(s): G93.40 - ENCEPHALOPATHY, UNSPECIFIED SNOMED Code(s): 69926783 (2) Delirium due to general medical condition Current Visit: Yes Status: Acute Code(s): F05 - DELIRIUM DUE TO KNOWN PHYSIOLOGICAL CONDITION SNOMED Code(s): 1968823 (3) Endometrial cancer Current Visit: Yes Status: Acute Priority: High Code(s): C54.1 - MALIGNANT NEOPLASM OF ENDOMETRIUM SNOMED Code(s): 219380198 (4) Ovarian cancer Current Visit: Yes Status: Acute Code(s): C56.9 - MALIGNANT NEOPLASM OF UNSPECIFIED OVARY SNOMED Code(s): 347427817 Plan: This patient is a 62-year-old female who was admitted with symptoms of increased obtundation and history of ovarian cancer stage IV. She does have evidence of underlying severe urinary tract infection and could have significant metabolic encephalopathy. We are recommending the patient undergo lumbar puncture tomorrow for further evaluation of unresponsive state. She was unable to have MRI of the brain today. They're going to retry MRI study tomorrow. As for Dr. Mead patient unlikely to have brain metastases or leptomeningeal carcinomatosis. We still would recommend a lumbar puncture for further evaluation of other causes of severe obtundation in this patient. Her overall prognosis at this time remains very guarded. Case was discussed at length with 2 of her daughters at bedside. She is currently a full CODE STATUS. We will continue to follow her progress closely during this admission. Her overall prognosis at this time remains very guarded.
[2017-07-24 06:21] LABS: Glucose,Whole Blood 88 mg/dL (75-99)
--- NOTE | 2017-07-24 06:30 | CONS ---
CONSULTATION DATE OF SERVICE: 07/23/2017. REASON FOR CONSULTATION: Fever and UTI. HISTORY OF PRESENT ILLNESS: The patient is a 62-year-old female with a past medical history significant for ovarian cancer for which the patient is currently on chemotherapy with the last cycle on 07/15/2017. The patient has been brought into the ER at [facility] for the patient becoming more confused statement. The patient progressively becoming less responsive. EMS was called in who brought the patient to the ER. There was no history of any fever at home. However by the time patient got here, she was afebrile initially. Subsequently, had a low-grade fever of 100.8 to 99.8. The patient did have a normal white count of 4.5. BUN and creatinine has been normal. Electrolytes has been normal. UA was significantly positive with large leukocyte esterases, more than 6 WBCs and many bacteria with urine culture showing E coli as the sensitive pathogen and the patient is currently being treated her with Unasyn. However, the patient remains to have persistent mental status changes and less responsiveness. The patient currently at times will open her eyes and moves around but will not comprehend or answer any questions. Hence, Infectious Disease was consulted for further recommendation regarding antibiotic therapy and management. An MRI has been scheduled for this afternoon as per discussion with the family member. Present at bedside most of the information has been obtained from thorough review of the chart and daughters as the patient is currently unable to provide reliable history. REVIEW OF SYSTEMS: Could not be reliably obtained. The positive points have been mentioned in HPI. PAST MEDICAL HISTORY: Significant for ovarian cancer for which the patient is currently on chemo, hypertension, osteoarthritis, sleep apnea, macular degeneration. PAST SURGICAL HISTORY: ORIF of bilateral ankles. The primary left leg skin graft of left leg to lower leg. SOCIAL HISTORY: No history of smoking. Occasionally drinks. No drug use. FAMILY HISTORY: Father history of leukemia. Sister with history of cancer. ALLERGIES: No known drug allergies. MEDICATION: Medications include the patient is currently on Unasyn 3 g q.8h. She is on scopolamine patch, Lasix Catapres, Tylenol suppository. EXAMINATION: Blood pressure is 121/73 with a pulse of 82, temperature 97.8. She is 96% on 4 L nasal cannula. General description is a middle-aged female lying in bed in no distress. No tachypnea or accessory muscle of respiration use. HEENT: Shows pallor, no scleral icterus. Oral mucosa membrane is dry. NECK: Trachea central. No thyromegaly. LUNGS: Unlabored breathing. Coarse breath sounds bilaterally. No wheeze or crackle. HEART: S1, S2. Regular rate and rhythm. ABDOMEN: Soft. She was noted to have mild tenderness right upper quadrant though no guarding or rigidity. No organomegaly. EXTREMITIES: No edema of the feet. SKIN EXAMINATION: No rash or mass palpable. NEUROLOGICAL: Patient is unresponsive, but does respond to painful stimuli by opening her eyes, however, remains to be aphasic with no neck rigidity. LABS: Hemoglobin is 8.1, white count 5.6 with a BUN of 26, creatinine 1.1. Electrolytes have been normal. Urine was positive. Culture currently pending. Blood culture so far negative. DIAGNOSTIC IMPRESSION AND PLAN: Patient admitted to the hospital with unresponsiveness and mental status changes in a patient who does have underlying history of ovarian cancer which the patient is currently on chemotherapy. On arrival to the ER the patient has been afebrile. Did have a low-grade fever subsequently and the patient is not neutropenic. She did have significantly positive with some tenderness on the right side. The question of right- sided pyelonephritis not entirely excluded; however, it is really unusual to have this much of mental status changes from the pyelonephritis. The patient is currently on antibiotics as mentioned in the form of Unasyn with question of possible Unasyn resistant pathogen. Clinical suspicion is low for underlying but not entirely excluded. PLAN: 1. We will discontinue Unasyn and start the patient on Zosyn 3.375 g q.8 hours. 2. Await the MRI of the brain. If that was negative, recommend doing an LP. This was explained in detail to the family member as well as the attending physician. 3. We will follow up on the clinical condition and further adjust medication if needed. Thank you for this consultation. Will follow this patient along with you. MMODL / IJN: [id number] /
[2017-07-24 06:46] LABS: Calcium 8.8 mg/dL (8.4-10.2)
[2017-07-24] MEDS ORDERED: FUROSEMIDE 10 MG/ML 2 ML VIAL IV ONE (08:00)
--- NOTE | 2017-07-24 09:06 | MR ---
EXAMINATION TYPE: MR brain wo/w con DATE OF EXAM: 07/24/2017 8:24 AM COMPARISON: NONE HISTORY: AMS, Ovarian ca with mets TECHNIQUE: Multiplanar, multiecho imaging of the brain was obtained with and without intravenous adm inistration of 10 mL intravenous Gadavist. FINDINGS: Fast brain protocol was utilized. This degrades the quality of the study. Midline structures are unremarkable. There is a normal craniocervical junction. Echoplanar diffusion imaging is normal. There is a 1 cm retention cyst or polyp in the left maxillary antrum. There are normal vascular flow voids. The orbits are normal. There is no evidence of a CP angle mass lesion. There is both punctate and confluent periventricular white matter change. This is likely on the basis of small vessel disease and chronic ischemic change. Other forms of demyelination are not excluded. Following intravenous administration of gadolinium, I do not see evidence of abnormal enhancement. IMPRESSION: 1. NO ACUTE INTRACRANIAL ABNORMALITY. 2. BOTH PUNCTATE AND CONFLUENT PERIVENTRICULAR WHITE MATTER DISEASE LIKELY ON THE BASIS OF CHRONIC IS CHEMIC CHANGE AND SMALL VESSEL DISEASE. 3. RETENTION CYST OR POLYP, LEFT MAXILLARY SINUS.
[2017-07-24] MEDS: PIPERACILLIN-TAZOBACTAM 3.375 GM in DEXTROSE/WATER 1 50ML.BAG IVPB SCH ×3 (09:08→23:18)
[2017-07-24 11:49] LABS: Glucose,Whole Blood 81 mg/dL (75-99)
--- NOTE | 2017-07-24 12:27 | CONS ---
CONSULTATION Ms. Wells is a 62-year-old female, who is seen for cardiac evaluation. This patient's medical records reviewed. This patient has a history of stage IV metastatic ovarian cancer and patient is admitted with a change in the mental status. Patient was quite obtunded. Multiple tests including CT scan and MRI were done. The patient also has been treated for dehydration and urinary tract infection. The patient went into atrial fibrillation during the night. The rate was in the range of 100-110. Patient had no respiratory distress. There is no previous history of atrial fibrillation. Patient has a history of hypertension, there is no prior history of myocardial infarction. The patient at present, her mental status has improved as compared to the admission. PAST MEDICAL HISTORY: Includes a history of hypertension, osteoarthritis and history of stage IV ovarian cancer. MEDICATIONS: The patient's current medications include clonidine and transdermal scopolamine patch, and patient is currently taking the Zosyn. PHYSICAL EXAMINATION: At present reveals a 62-year-old female, who is alert and awake. Blood pressure is 139/87 mmHg, heart rate varies between 90-110. HEENT examination is negative. NECK: Supple. Jugular venous pressure is not elevated. Both the carotid pulses are felt. There is no bruit. Chest is symmetrical. HEART: The PMI is not felt. First and second heart sounds are normal. There is no evidence of any murmur. Lungs are clinically clear to auscultation and percussion. Abdomen is negative. EXTREMITIES: Peripheral pulses are 1+. EKG shows atrial fibrillation without any acute ischemic changes. Patient's hemoglobin is 8.1. FINAL IMPRESSION: This patient developed paroxysmal atrial fibrillation. At present, basal rate is 90- 110 per minute. The patient is hemodynamically stable and not in any acute respiratory distress. We will treat the patient with Lopressor 2.5 mg IV q.6 hourly to control the rate. Echo and Doppler study will be done. We will wait at present for any anticoagulation. MMODL / IJN: [id number] /
--- NOTE | 2017-07-24 15:36 | PN ---
PROGRESS NOTE DATE OF SERVICE: 07/24/2017. REASON FOR FOLLOWUP VISIT: E coli urinary tract infection and possible pyelonephritis. INTERVAL HISTORY: The patient is afebrile. She seems to be more awake and alert. She has been following simple commands and answers some simple questions, though still slightly confused per the sister. Family members present at bedside. No nausea or vomiting has been noticed. She was able to swallow some water without any difficulty or any choking and no diarrhea. EXAMINATION: Blood pressure 139/87, pulse of 105, temperature 97.7, she is 97% on 4 L nasal cannula. General description is a middle aged female, lying in bed in no distress. Respiratory system: Unlabored breathing, clear to auscultation anteriorly. Heart S1, S2. Regular rate and rhythm. Abdomen soft, no tenderness. LABS: BUN of 28, creatinine 1.24. Urine with an E coli that is sensitive pathogen. DIAGNOSTIC IMPRESSION AND PLAN: Patient admitted to the hospital with fever and mental status changes and weakness, most likely multifactorial with a component of metabolic encephalopathy. Clinically doubt infectious enterocolitis as the patient seemed to have shown clinical improvement. She is currently on Zosyn that will continue. However should be able to finish oral antibiotic as E. coli was resistant pathogen. Family present at bedside. All their questions were answered. MMODL / IJN: [id number] /
--- NOTE | 2017-07-24 16:23 | P.PN ---
Subjective Progress Note Date: 07/24/17 This patient is a 62-year-old female being evaluated for acute encephalopathy and obtundation. Patient has a history of stage IV ovarian cancer. She has been very lethargic since admission to hospital. She was scheduled for MRI of the brain yesterday but this could not be completed as she became short of breath when flat on the gurney. The patient remained very much obtunded and does not open eyes yesterday. According to 2 of her daughters at the bedside she was clearly much more alert and awake about a week ago. She has shown a rapid decline. She is being followed by oncology as she has a known history of underlying ovarian cancer stage IV. Since the patient was unable to have MRI of the brain yesterday we are recommending that she be evaluated for lumbar puncture by anesthesia tomorrow for further evaluation of altered mental status. Would recommend to check for routine as well as special studies for possibility of encephalitis as well in this patient. Patient also has a known history of stage IV ovarian cancer. She should have spinal fluid evaluated for leptomeningeal carcinomatosis. Patient was able to have MRI of the brain completed today on 07/24/2017. MRI reveals no acute intracranial abnormality. Both punctate and confluent area ventricular white matter ischemic changes were noted. Suggesting small vessel disease. Retention cyst in the left maxillary sinus. There was no enhancing lesions noted. Fortunately this MRI is not indicating metastatic lesions to the brain. According to the daughter who is at bedside today her lumbar puncture has been canceled. We will await further recommendations from infectious disease regarding her LP status. We still would recommend lumbar puncture to be done for further assessment. Infectious disease is also following the patient closely. We will continue close neurological follow-up for this patient. Her overall prognosis at this time remains very guarded. Objective - Vital Signs Vital signs: Vital Signs Temp 97.7 F 07/24/17 11:26 Pulse 105 H 07/24/17 11:26 Resp 18 07/24/17 11:26 BP 139/87 07/24/17 11:26 Pulse Ox 97 07/24/17 11:26 Intake & Output 07/23/17 07/24/17 07/24/17 18:59 06:59 18:59 Intake Total 160 100 Output Total 1600 Balance 160 -1500 Weight 111 kg Intake: IV 100 Piperacillin-Tazobactam 3 100 .375 gm In Dextrose/Water 1 50ml.bag @ 12.5 mls/hr IVPB Q8HR [facility] Rx#: [id number] Intake, IV Titration 160 Amount Ampicillin-Sulbactam 3 gm 100 In Sodium Chloride 0.9% 100 ml @ 100 mls/hr IVPB Q8HR [facility] Rx#:[id number] Lactated Ringers 1,000 ml 60 @ 125 mls/hr IV .Q8H [facility] Rx#:[id number] Oral 0 Output: Urine 1600 Other: Voiding Method Indwelling Catheter Indwelling Catheter Indwelling Catheter - Exam Physical examination: PHYSICAL EXAMINATION: Patient is obtunded laying in bed. She does not open her eyes. VITAL SIGNS: Blood pressure is [139/87]. Heart rate is [105]. Respiration is [18 ]. Temperature is [97.7]. HEENT: Head is atraumatic, neck is supple, there were no carotid bruits. CHEST: Lungs are clear to auscultation and percussion. CARDIAC: S1, S2 normal rate and rhythm. There is no murmur. ABDOMEN: Soft and nontender. Bowel sounds are present. EXTREMITIES: There is no pedal edema. Peripheral pulses are present. Neurological examination: Patient is much more awake and alert today. She is able to answer some simple questions. According to the daughter who is at bedside she is much more her normal mentation. She is opening her eyes and has noted has been conversant with family members. She has no focal motor deficit. Deep tendon reflexes are symmetric. Plantar response is flexor bilaterally. - Labs CBC & Chem 7: 07/23/17 06:14 07/24/17 06:16 Labs: Abnormal Lab Results - Last 24 Hours (Table) 07/24/17 Range/Units 06:16 BUN 28 H (7-17) mg/dL Creatinine 1.24 H (0.52-1.04) mg/dL Microbiology - Last 24 Hours (Table) 07/21/17 22:00 Urine Culture - Final Urine,Catheterized Escherichia coli Assessment and Plan (1) Acute encephalopathy Current Visit: Yes Status: Acute Code(s): G93.40 - ENCEPHALOPATHY, UNSPECIFIED SNOMED Code(s): 27948055 (2) Delirium due to general medical condition Current Visit: Yes Status: Acute Code(s): F05 - DELIRIUM DUE TO KNOWN PHYSIOLOGICAL CONDITION SNOMED Code(s): 8762961 (3) Endometrial cancer Current Visit: Yes Status: Acute Priority: High Code(s): C54.1 - MALIGNANT NEOPLASM OF ENDOMETRIUM SNOMED Code(s): 493633163 (4) Ovarian cancer Current Visit: Yes Status: Acute Code(s): C56.9 - MALIGNANT NEOPLASM OF UNSPECIFIED OVARY SNOMED Code(s): 559494612 Plan: This patient is a 62-year-old female who was initially admitted for evaluation of severe obtunded patient and known history of stage IV ovarian cancer. She was able to complete MRI of the brain today the results of which are noted above. MRIs negative for any evidence of metastatic lesions to the brain. Patient also shows significant improvement today in terms of her mental status. She is more awake and alert. Infectious disease is following the patient closely. Apparently her lumbar puncture is been placed on hold at this time. She is showing improvement in her overall mental status. She is currently on Unasyn for antibiotic coverage. We will await further recommendations from Dr. Forde in terms of further evaluation for this patient. Case was discussed today at length with the patient's daughter at bedside. She has been doing much better in terms of her mental status today. We will continue to follow her progress closely and will await further evaluation from infectious disease. Overall prognosis at this time remains guarded.
--- NOTE | 2017-07-24 16:37 | P.PN ---
Subjective 62-year-old that came in with altered mental status and aphasia altered mental status significant improved status still confused but alert oriented times close to 2 patient is being treated for urinary tract infection. Patient still remains aphasic although MRI did not show any metastatic lesions or any stroke. Neurology evaluated the patient patient is on Unasyn infectious disease is following the patient as well. Next Objective - Vital Signs Vital signs: Vital Signs Temp 97.7 F 07/24/17 11:26 Pulse 105 H 07/24/17 11:26 Resp 18 07/24/17 11:26 BP 139/87 07/24/17 11:26 Pulse Ox 97 07/24/17 11:26 Intake & Output 07/23/17 07/24/17 07/24/17 18:59 06:59 18:59 Intake Total 160 100 290 Output Total 1600 1300 Balance 160 -1500 -1010 Weight 111 kg 111 kg Intake: IV 100 Piperacillin-Tazobactam 3 100 .375 gm In Dextrose/Water 1 50ml.bag @ 12.5 mls/hr IVPB Q8HR [facility] Rx#: [id number] Intake, IV Titration 160 50 Amount Ampicillin-Sulbactam 3 gm 100 In Sodium Chloride 0.9% 100 ml @ 100 mls/hr IVPB Q8HR [facility] Rx#:[id number] Lactated Ringers 1,000 ml 60 @ 125 mls/hr IV .Q8H [facility] Rx#:[id number] Piperacillin-Tazobactam 3 50 .375 gm In Dextrose/Water 1 50ml.bag @ 12.5 mls/hr IVPB Q8HR [facility] Rx#: [id number] Oral 0 240 Output: Urine 1600 1300 Other: Voiding Method Indwelling Catheter Indwelling Catheter Indwelling Catheter - Exam PHYSICAL EXAMINATION: GENERAL: The patient is alert and oriented x2, not in any acute distress. Well developed, well nourished. HEENT: Pupils are round and equally reacting to light. EOMI. No scleral icterus. No conjunctival pallor. Normocephalic, atraumatic. No pharyngeal erythema. No thyromegaly. CARDIOVASCULAR: S1 and S2 present. No murmurs, rubs, or gallops. PULMONARY: Chest is clear to auscultation, no wheezing or crackles. ABDOMEN: Soft, nontender, nondistended, normoactive bowel sounds. No palpable organomegaly. MUSCULOSKELETAL: No joint swelling or deformity. EXTREMITIES: No cyanosis, clubbing, or pedal edema. NEUROLOGICAL: Still has motor aphasia unsure why patient is aphasic SKIN: No rashes. - Labs CBC & Chem 7: 07/23/17 06:14 07/24/17 06:16 Labs: Abnormal Lab Results - Last 24 Hours (Table) 07/24/17 Range/Units 06:16 BUN 28 H (7-17) mg/dL Creatinine 1.24 H (0.52-1.04) mg/dL Microbiology - Last 24 Hours (Table) 07/21/17 22:00 Urine Culture - Final Urine,Catheterized Escherichia coli Assessment and Plan Plan: -Aphasia and altered mental status probably due to toxic encephalopathy from urinary tract infection patient is on Unasyn which will be continued infectious disease is following the patient patient up ancestry E. coli -History of endometrial cancer patient is receiving chemotherapy no evidence of metastatic disease -Rule out CVA, ruled out brain metastases next and-depression -Hypertension Deconditioning
--- NOTE | 2017-07-24 16:37 | XR ---
EXAMINATION TYPE: XR chest 1V DATE OF EXAM: 07/24/2017 COMPARISON: 07/22/2017 HISTORY: 62-year-old female increasing secretions, labored breathing, shortness of breath TECHNIQUE: Single frontal view of the chest is obtained. FINDINGS: Heart mildly enlarged. Diffuse interstitial densities persist. No clifton consolidation or pleural effu moe. IMPRESSION: 1. Mild cardiomegaly. 2. Persistent diffuse interstitial prominence. Correlate for mild pulmonary vascular congestion, bron chitis, asthma, or atypical pneumonias.
[2017-07-24 16:54] LABS: Glucose,Whole Blood 97 mg/dL (75-99)
[2017-07-24] MEDS: METOPROLOL TARTRATE 5 MG/5 ML VIAL IVP SCH ×2 (18:15→23:18)
[2017-07-24 21:04] LABS: Glucose,Whole Blood 112 mg/dL (75-99)
[2017-07-25] MEDS: METOPROLOL TARTRATE 5 MG/5 ML VIAL IVP SCH ×2 (05:34→11:20)
[2017-07-25 06:03] LABS: Glucose,Whole Blood 101 mg/dL (75-99)
[2017-07-25 06:55] LABS: Anisocytosis Slight; HCT 24.8 % (34.0-46.0); HGB 8.1 gm/dL (11.4-16.0); MCH 34.8 pg (25.0-35.0); MCHC 32.8 g/dL (31.0-37.0); MCV 106.1 fL (80.0-100.0); Macrocytosis Moderate; Mean Platelet Volume 8.2; RBC 2.34 m/uL (3.80-5.40); RDW 16.1 % (11.5-15.5); WBC 3.3 k/uL (3.8-10.6)
[2017-07-25 07:07] LABS: Platelet Count 54 k/uL (150-450)
[2017-07-25 07:09] LABS: Calcium 8.6 mg/dL (8.4-10.2); Potassium 3.7 mmol/L (3.5-5.1)
[2017-07-25] MEDS: PIPERACILLIN-TAZOBACTAM 3.375 GM in DEXTROSE/WATER 1 50ML.BAG IVPB SCH ×2 (08:20→16:24)
[2017-07-25 12:03] LABS: Glucose,Whole Blood 108 mg/dL (75-99)
[2017-07-25] MEDS: ACETAMINOPHEN TAB 325 MG TAB PO PRN ×2 (14:32→19:59)
--- NOTE | 2017-07-25 15:50 | P.PN ---
Subjective 62-year-old that came in with altered mental status and aphasia altered mental status significant improved status still confused but alert oriented times close to 2 patient is being treated for urinary tract infection. Patient still remains aphasic although MRI did not show any metastatic lesions or any stroke. Neurology evaluated the patient patient is on Unasyn infectious disease is following the patient as well. 07/25/2017 Patient's aphasia improved significantly although patient is still confused patient appears to have typical Wernicke's although there is no significant abnormality on MRI. Patient may be encephalopathic. Discussed at length with the patient and family members today. Plan will be discussed regarding LP with the oncology and neurology. Objective - Vital Signs Vital signs: Vital Signs Temp 96.5 F L 07/25/17 12:00 Pulse 108 H 07/25/17 12:00 Resp 18 07/25/17 12:00 BP 133/77 07/25/17 12:00 Pulse Ox 93 L 07/25/17 12:00 Intake & Output 07/24/17 07/25/17 07/25/17 18:59 06:59 18:59 Intake Total 290 50 210 Output Total 1300 Balance -1010 50 210 Weight 111 kg 111 kg Intake: IV 50 Piperacillin-Tazobactam 3 50 .375 gm In Dextrose/Water 1 50ml.bag @ 12.5 mls/hr IVPB Q8HR ADAN Rx#: [id number] Intake, IV Titration 50 Amount Piperacillin-Tazobactam 3 50 .375 gm In Dextrose/Water 1 50ml.bag @ 12.5 mls/hr IVPB Q8HR ADAN Rx#: [id number] Oral 240 210 Output: Urine 1300 Other: Voiding Method Indwelling Catheter Indwelling Catheter Indwelling Catheter # Bowel Movements 1 - Exam PHYSICAL EXAMINATION: GENERAL: The patient is alert and oriented x0-1, not in any acute distress. Well developed, well nourished. HEENT: Pupils are round and equally reacting to light. EOMI. No scleral icterus. No conjunctival pallor. Normocephalic, atraumatic. No pharyngeal erythema. No thyromegaly. CARDIOVASCULAR: S1 and S2 present. No murmurs, rubs, or gallops. PULMONARY: Chest is clear to auscultation, no wheezing or crackles. ABDOMEN: Soft, nontender, nondistended, normoactive bowel sounds. No palpable organomegaly. MUSCULOSKELETAL: No joint swelling or deformity. EXTREMITIES: No cyanosis, clubbing, or pedal edema. NEUROLOGICAL: Still has motor aphasia unsure why patient is aphasic SKIN: No rashes. - Labs CBC & Chem 7: 07/25/17 06:31 07/25/17 06:31 Labs: Abnormal Lab Results - Last 24 Hours (Table) 07/24/17 07/25/17 07/25/17 Range/Units 20:57 06:01 06:31 WBC (3.8-10.6) k/uL RBC (3.80-5.40) m/uL Hgb (11.4-16.0) gm/dL Hct (34.0-46.0) % MCV (80.0-100.0) fL RDW (11.5-15.5) % Plt Count (150-450) k/uL BUN 30 H (7-17) mg/dL Creatinine 1.34 H (0.52-1.04) mg/dL POC Glucose (mg/dL) 112 H 101 H (75-99) mg/dL 07/25/17 07/25/17 Range/Units 06:31 11:55 WBC 3.3 L (3.8-10.6) k/uL RBC 2.34 L (3.80-5.40) m/uL Hgb 8.1 L (11.4-16.0) gm/dL Hct 24.8 L (34.0-46.0) % MCV 106.1 H (80.0-100.0) fL RDW 16.1 H (11.5-15.5) % Plt Count 54 L (150-450) k/uL BUN (7-17) mg/dL Creatinine (0.52-1.04) mg/dL POC Glucose (mg/dL) 108 H (75-99) mg/dL Assessment and Plan Plan: -Aphasia and altered mental status probably due to toxic encephalopathy from urinary tract infection patient is on Unasyn which will be continued infectious disease is following the patient patient up pansensitive E. coli. Ancef left is improving significantly may need an LP to rule out leptomeningeal metastasis -History of endometrial cancer patient is receiving chemotherapy no evidence of metastatic disease -Rule out CVA, ruled out brain metastases next and-depression -Hypertension Deconditioning
[2017-07-25 16:39] LABS: Glucose,Whole Blood 129 mg/dL (75-99)
--- NOTE | 2017-07-25 18:36 | P.PN ---
Subjective Progress Note Date: 07/25/17 This patient is a 62-year-old female being evaluated for acute encephalopathy and obtundation. Patient has a history of stage IV ovarian cancer. She has been very lethargic since admission to hospital. She was scheduled for MRI of the brain yesterday but this could not be completed as she became short of breath when flat on the gurney. The patient remained very much obtunded and does not open eyes yesterday. According to 2 of her daughters at the bedside she was clearly much more alert and awake about a week ago. She has shown a rapid decline. She is being followed by oncology as she has a known history of underlying ovarian cancer stage IV. Since the patient was unable to have MRI of the brain yesterday we are recommending that she be evaluated for lumbar puncture by anesthesia tomorrow for further evaluation of altered mental status. Would recommend to check for routine as well as special studies for possibility of encephalitis as well in this patient. Patient also has a known history of stage IV ovarian cancer. She should have spinal fluid evaluated for leptomeningeal carcinomatosis. Patient was able to have MRI of the brain completed today on 07/24/2017. MRI reveals no acute intracranial abnormality. Both punctate and confluent area ventricular white matter ischemic changes were noted. Suggesting small vessel disease. Retention cyst in the left maxillary sinus. There was no enhancing lesions noted. Fortunately this MRI is not indicating metastatic lesions to the brain. According to the daughter who is at bedside today her lumbar puncture has been canceled. We will await further recommendations from infectious disease regarding her LP status. Infectious disease is also following the patient closely. This patient's history was reviewed today with Dr. Forde. Since she is making very good progress in her mental status lumbar puncture is been placed on hold at this time. Patient is much more awake and alert today. She is following simple commands. She is being treated for underlying urinary tract infection and likely has a resolving metabolic encephalopathy. We will continue close neurological follow-up for this patient. Her overall prognosis at this time remains very guarded. Objective - Vital Signs Vital signs: Vital Signs Temp 97.7 F 07/25/17 04:00 Pulse 101 H 07/25/17 04:00 Resp 18 07/25/17 04:00 BP 113/55 07/25/17 04:00 Pulse Ox 96 07/25/17 04:00 Intake & Output 07/24/17 07/25/17 07/25/17 18:59 06:59 18:59 Intake Total 290 50 120 Output Total 1300 Balance -1010 50 120 Weight 111 kg 111 kg Intake: IV 50 Piperacillin-Tazobactam 3 50 .375 gm In Dextrose/Water 1 50ml.bag @ 12.5 mls/hr IVPB Q8HR AADN Rx#: [id number] Intake, IV Titration 50 Amount Piperacillin-Tazobactam 3 50 .375 gm In Dextrose/Water 1 50ml.bag @ 12.5 mls/hr IVPB Q8HR ADAN Rx#: [id number] Oral 240 120 Output: Urine 1300 Other: Voiding Method Indwelling Catheter Indwelling Catheter # Bowel Movements 1 - Exam Physical examination: PHYSICAL EXAMINATION: Patient is laying in bed. She does not open her eyes. VITAL SIGNS: Blood pressure is [114/55]. Heart rate is [101]. Respiration is [18 ]. Temperature is [97.7]. HEENT: Head is atraumatic, neck is supple, there were no carotid bruits. CHEST: Lungs are clear to auscultation and percussion. CARDIAC: S1, S2 normal rate and rhythm. There is no murmur. ABDOMEN: Soft and nontender. Bowel sounds are present. EXTREMITIES: There is no pedal edema. Peripheral pulses are present. Neurological examination: Patient is much more awake and alert today. She is able to answer some simple questions. According to the daughter who is at bedside she is much more her normal mentation. She is opening her eyes and has noted has been conversant with family members. She has no focal motor deficit. Deep tendon reflexes are symmetric. Plantar response is flexor bilaterally. - Labs CBC & Chem 7: 07/25/17 06:31 07/25/17 06:31 Labs: Abnormal Lab Results - Last 24 Hours (Table) 07/24/17 07/25/17 07/25/17 Range/Units 20:57 06:01 06:31 WBC (3.8-10.6) k/uL RBC (3.80-5.40) m/uL Hgb (11.4-16.0) gm/dL Hct (34.0-46.0) % MCV (80.0-100.0) fL RDW (11.5-15.5) % Plt Count (150-450) k/uL BUN 30 H (7-17) mg/dL Creatinine 1.34 H (0.52-1.04) mg/dL POC Glucose (mg/dL) 112 H 101 H (75-99) mg/dL 07/25/17 07/25/17 Range/Units 06:31 11:55 WBC 3.3 L (3.8-10.6) k/uL RBC 2.34 L (3.80-5.40) m/uL Hgb 8.1 L (11.4-16.0) gm/dL Hct 24.8 L (34.0-46.0) % MCV 106.1 H (80.0-100.0) fL RDW 16.1 H (11.5-15.5) % Plt Count 54 L (150-450) k/uL BUN (7-17) mg/dL Creatinine (0.52-1.04) mg/dL POC Glucose (mg/dL) 108 H (75-99) mg/dL Assessment and Plan (1) Acute encephalopathy Current Visit: Yes Status: Acute Code(s): G93.40 - ENCEPHALOPATHY, UNSPECIFIED SNOMED Code(s): 85299539 (2) Delirium due to general medical condition Current Visit: Yes Status: Acute Code(s): F05 - DELIRIUM DUE TO KNOWN PHYSIOLOGICAL CONDITION SNOMED Code(s): 4193657 (3) Endometrial cancer Current Visit: Yes Status: Acute Priority: High Code(s): C54.1 - MALIGNANT NEOPLASM OF ENDOMETRIUM SNOMED Code(s): 006778957 (4) Ovarian cancer Current Visit: Yes Status: Acute Code(s): C56.9 - MALIGNANT NEOPLASM OF UNSPECIFIED OVARY SNOMED Code(s): 950327873 Plan: This patient is a 62-year-old female who is being followed for history of severe obtundation following admission to hospital. She has a history of stage IV ovarian cancer and there was concern whether her mental status changes were related to her underlying cancer history. She underwent MRI of the brain results of which are noted above. MRI fails to reveal any evidence of metastatic lesions to the brain. Patient is being treated for urinary tract infection. Infectious disease is following her closely as well. She is showing significant improvement in her mental status in the last 2 days. She is now back to normal level of function and is able to answer questions appropriately. Lumbar puncture is been placed on hold. Case was discussed today with Dr. Forde. Patient is showing gradual improvement day by day. She most likely has a diffuse metabolic encephalopathy which is improving. We will continue to follow her progress closely during this admission.
[2017-07-25] MEDS: METOPROLOL TARTRATE 50 MG TAB PO SCH (21:49)
--- NOTE | 2017-07-25 22:04 | PN ---
PROGRESS NOTE DATE OF SERVICE: 07/25/2017. REASON FOR FOLLOWUP: E. coli UTI with question of pyelonephritis. INTERVAL HISTORY: The patient is afebrile. She seemed to be more awake, alert, and answered some simple questions. No nausea, vomiting, abdominal pain, or any diarrhea. EXAMINATION: Blood pressure 139/73, pulse of 101, temperature 97.1. She is 93% room air. General description is a middle-aged female lying in bed in no distress. RESPIRATORY SYSTEM: Unlabored breathing, clear to auscultation anteriorly. HEART: S1, S2. Regular rate and rhythm and rhythm. ABDOMEN: Soft, no tenderness. LABS: Hemoglobin 8.1, white count 3.3, BUN of 30, creatinine 1.34. DIAGNOSTIC IMPRESSION AND PLAN: Patient with E. coli urinary tract infection, likely pyelonephritis, which is a sensitive pathogen. Currently on Zosyn, transitioning her to Rocephin with plan to finish therapy with oral amoxicillin. Continue supportive care. MMODL / IJN: [id number] /
--- NOTE | 2017-07-25 23:57 | PN ---
PROGRESS NOTE This patient was admitted with a change in the mental status. Patient is being treated for metastatic ovarian cancer. The patient developed atrial fibrillation with moderately rapid ventricular response. The patient persisted to be in atrial fibrillation. She is much more alert and awake. Heart rate is 90 to 110 per minute, blood pressure is 139/73 mmHg first and second heart sounds are normal. Lungs are clinically clear to auscultation and percussion. Patient's hemoglobin is 8.1, electrolytes are normal. The patient was started on oral Lopressor and we will leave up to the Hem/Oncologist regarding the long-term with blood thinner. MMODL / IJN: [id number] /
[2017-07-26 06:40] LABS: Glucose,Whole Blood 99 mg/dL (75-99)
[2017-07-26 07:32] LABS: Calcium 8.7 mg/dL (8.4-10.2); Potassium 3.7 mmol/L (3.5-5.1)
[2017-07-26] MEDS: METOPROLOL TARTRATE 50 MG TAB PO SCH ×2 (08:46→21:39)
[2017-07-26] MEDS: cefTRIAXone IN SWFI 2,000 MG/20 ML SYRINGE IVP SCH (08:47)
[2017-07-26] MEDS ORDERED: ALPRAZolam 0.5 MG TAB PO PRN (10:43)
--- NOTE | 2017-07-26 11:52 | P.PN ---
Subjective Progress Note Date: 07/26/17 Principal diagnosis: AMS, UTI Objective - Vital Signs Vital signs: Vital Signs Temp 97.2 F L 07/26/17 08:00 Pulse 100 07/26/17 08:00 Resp 20 07/26/17 08:00 BP 122/70 07/26/17 08:00 Pulse Ox 94 L 07/26/17 08:00 Intake & Output 07/25/17 07/26/17 07/26/17 18:59 06:59 18:59 Intake Total 210 Output Total 400 401 Balance -190 -401 Weight 110 kg Intake: Oral 210 Output: Urine 400 401 Other: Voiding Method Indwelling Catheter Indwelling Catheter Indwelling Catheter # Voids 650 # Bowel Movements 1 1 - Constitutional Constitutional Comment(s): She is laying in bed, her eyes are opening and she is communicating but, she does not follow the conversation, she is confused when we discuss current events. Speech is slightly slurred, labile emotions, remote memory intact General appearance: Present: obese - EENT Eyes: Present: anicteric sclerae, PERRLA ENT: Present: normal oropharynx - Respiratory Respiratory: bilateral: rales (Few scattered) - Cardiovascular Heart sounds: normal: S1, S2 - Peripheral edema leg Peripheral Edema: bilateral: 1+ - Gastrointestinal General gastrointestinal: Present: normal bowel sounds - Integumentary Integumentary: Present: pale - Musculoskeletal Musculoskeletal: Present: generalized weakness - Psychiatric Psychiatric Comment(s): Alert, oriented to self only, does recognize some family members - Labs CBC & Chem 7: 07/25/17 06:31 07/26/17 07:02 Labs: Abnormal Lab Results - Last 24 Hours (Table) 07/25/17 07/25/17 07/26/17 Range/Units 11:55 16:37 07:02 BUN 24 H (7-17) mg/dL Creatinine 1.27 H (0.52-1.04) mg/dL Glucose 100 H (74-99) mg/dL POC Glucose (mg/dL) 108 H 129 H (75-99) mg/dL - Imaging and Cardiology MRI - head: report reviewed Assessment and Plan (1) Altered mental status Narrative/Plan: Patient is no longer obtunded, she is alert, only oriented to self. Unclear at this time if her presentation is related to urosepsis, as she is slowly improving. Case was briefly discussed with Dr. Forde. He is recommended CT of the abdomen and pelvis for abdominal tenderness he noted on exam. Antibiotics have been adjusted. Current Visit: Yes Status: Acute Priority: High Code(s): R41.82 - ALTERED MENTAL STATUS, UNSPECIFIED SNOMED Code(s): 938719363 (2) Endometrial cancer Narrative/Plan: Patient had only one more chemotherapy treatment planned, overall her disease has had a decent response to treatment with reduction in tumor markers. Her current situation came on rather abruptly, there is currently no evidence to suggest that the underlying cause is malignancy. MRI of the brain was negative for malignancy. Lumbar puncture is not being considered at this time as the patient's mental status is improving. Discussed case with Infectious Disease and Dr. Forde would like to proceed forward with oral contrast CT of abdomen and pelvis to evaluate for a possible source for infection. She was due for CT of the chest, abdomen and pelvis for treatment follow-up but, currently her renal function is poor so, will delay the CT chest with IV contrast and agree to proceed with CT AP as it will provide us with some details regarding response to treatment as well. All of the above was discussed with family and all questions answered to the best of my ability Current Visit: Yes Status: Acute Priority: High Code(s): C54.1 - MALIGNANT NEOPLASM OF ENDOMETRIUM SNOMED Code(s): 151665388 Plan: Did restart pt home antidepressant and PRN antianxiety medications at family request
[2017-07-26 11:55] LABS: Glucose,Whole Blood 102 mg/dL (75-99)
--- NOTE | 2017-07-26 12:01 | XR ---
EXAMINATION TYPE: XR chest 1V DATE OF EXAM: 07/26/2017 CLINICAL HISTORY: Difficulty breathing progress study. History of cancer. TECHNIQUE: Single AP portable upright view of the chest is obtained. COMPARISON: Chest x-ray from 2 days earlier and older studies. FINDINGS: There is chronic parenchymal change without suspicious new focal airspace opacity, pleural effusion, or pneumothorax seen bilaterally. Cardiac silhouette size is stable and mildly enlarged. S omewhat low lung volumes are redemonstrated. Osseous structures are intact. IMPRESSION: Overall stable findings, low lung volumes and chronic changes with cardiomegaly but wit hout new suspicious acute pulmonary process identified.
[2017-07-26] MEDS: FAMOTIDINE 20 MG TAB PO SCH (12:27)
[2017-07-26] MEDS: VIT A,C & E-LUTEIN-MINERALS 1 EACH TAB PO SCH (12:27)
[2017-07-26] MEDS: SERTRALINE 25 MG TAB PO SCH (12:27)
[2017-07-26] MEDS: IOPAMIDOL-300 CONTRAST 30 ML VIAL (ORAL USE) PO PRN ×2 (12:55→14:11)
[2017-07-26] MEDS ORDERED: QUEtiapine 25 MG TAB PO PRN (15:13)
--- NOTE | 2017-07-26 15:27 | P.PN ---
Subjective Progress Note Date: 07/26/17 This 62-year-old female seen in consultation by Dr. VC Gregory. She has a history of stage IV metastatic ovarian cancer and was admitted with mental status changes, patient had gone into atrial fibrillation and for this reason a cardiology consultation was requested. She does have history of hypertension. Echocardiogram with Doppler study performed on July 12 showed an ejection fraction of 55-60%. Patient will require anticoagulation if okayed with hematology, this was discussed with the primary care doctor. Cardiology's perspective now we will follow this patient on an as though questions. Objective - Vital Signs Vital signs: Vital Signs Temp 97.1 F L 07/26/17 12:00 Pulse 100 07/26/17 12:00 Resp 20 07/26/17 12:00 BP 140/89 07/26/17 12:00 Pulse Ox 96 07/26/17 12:00 Intake & Output 07/25/17 07/26/17 07/26/17 18:59 06:59 18:59 Intake Total 210 240 Output Total 400 401 500 Balance -190 -401 -260 Weight 110 kg Intake: Oral 210 240 Output: Urine 400 401 500 Other: Voiding Method Indwelling Catheter Indwelling Catheter Indwelling Catheter # Voids 650 # Bowel Movements 1 1 3 # Emeses 1 - Exam PHYSICAL EXAMINATION: HEENT: Head is atraumatic, normocephalic. Pupils equal, round. Neck is supple. There is no elevated jugular venous pressure. HEART EXAMINATION: Heart S1 and S2 irregular irregular CHEST EXAMINATION: Lungs are clear to auscultation and precussion. No chest wall tenderness is noted on palpation or with deep breathing. ABDOMEN: Soft, nontender. Bowel sounds are heard. No organomegaly noted. EXTREMITIES: 2+ peripheral pulses with no evidence of peripheral edema and no calf tenderness noted. NEUROLOGIC patient is awake, alert and oriented -3. . - Labs CBC & Chem 7: 07/25/17 06:31 07/26/17 07:02 Labs: Abnormal Lab Results - Last 24 Hours (Table) 07/25/17 07/26/17 07/26/17 Range/Units 16:37 07:02 11:53 BUN 24 H (7-17) mg/dL Creatinine 1.27 H (0.52-1.04) mg/dL Glucose 100 H (74-99) mg/dL POC Glucose (mg/dL) 129 H 102 H (75-99) mg/dL Assessment and Plan Plan: Assessment and plan #1Aphasia and mental status changes likely secondary to toxic encephalopathy from a UTI #2 paroxysmal atrial fibrillation #3 history of endometrial cancer receiving chemo #4 hypertension Plan Cardiogram with Doppler study was reviewed, patient has normal left ventricular systolic function. She will require anticoagulation once cleared by hematology. This will be initiated by primary care service. We discussed this with them today. We will follow this patient with you now on an as-needed basis only, please don't hesitate to call with any questions. DNP note has been reviewed, I agree with a documented findings and plan of care. Patient was seen and examined.
--- NOTE | 2017-07-26 15:31 | CT ---
EXAMINATION TYPE: CT abdomen pelvis wo con DATE OF EXAM: 07/26/2017 HISTORY: Abd pain. CT DLP: 1415.8 mGycm. Automated Exposure Control for Dose Reduction was Utilized. TECHNIQUE: CT scan of the abdomen and pelvis is performed with oral but without IV contrast. COMPARISON: CT chest abdomen and pelvis May 10, 2017 and older study January 15, 2017 FINDINGS: Within the limitations of a non-contrast study, the following observations are made. LUNG BASES: Some calcification level left mitral valve is redemonstrated. There is patchy bibasilar l inear scarring and/or atelectasis. LIVER/GB: No significant abnormality is appreciated. PANCREAS: No significant abnormality is seen. SPLEEN: No significant abnormality is seen. ADRENALS: No significant abnormality is seen. KIDNEYS: Rizvi catheter is seen within urinary bladder which is decompressed and thus suboptimally ev aluated. There is mild left-sided hydronephrosis without obstructing calculus clearly seen. BOWEL: No significant abnormality is seen. GENITAL ORGANS: Anteverted uterus projecting to right of midline is redemonstrated. Along superior an terior aspect there is persistent oval well-circumscribed soft tissue mass measuring 8.5 x 6.0 cm axi al image 70 felt slightly smaller in size versus prior CT. Normal-appearing ovaries are not identifie d. LYMPH NODES: No new greater than 1cm abdominal or pelvic lymph nodes are appreciated with particular attention to retroperitoneum at area of prior abnormal adenopathy. OSSEOUS STRUCTURES: Diffuse osseous metastatic disease is redemonstrated with numerous sclerotic foci throughout the spine and pelvis. There is likely some slight progression in size and number of lesio ns from prior study. OTHER: No significant additional abnormality is seen. IMPRESSION: Continued improvement in left pelvic soft tissue mass probable neoplasm. No new suspiciou s masses or adenopathy seen. No new significant ascites noted. Likely some interval progression osseo us metastatic disease is noted. Mild left-sided hydronephrosis is more prominent versus recent CT lik haydee on basis of mass effect from the left pelvic mass.
--- NOTE | 2017-07-26 16:40 | P.PN ---
Subjective 62-year-old that came in with altered mental status and aphasia altered mental status significant improved status still confused but alert oriented times close to 2 patient is being treated for urinary tract infection. Patient still remains aphasic although MRI did not show any metastatic lesions or any stroke. Neurology evaluated the patient patient is on Unasyn infectious disease is following the patient as well. 07/25/2017 Patient's aphasia improved significantly although patient is still confused patient appears to have typical Wernicke's although there is no significant abnormality on MRI. Patient may be encephalopathic. Discussed at length with the patient and family members today. Plan will be discussed regarding LP with the oncology and neurology. 07/26/2017 No plans for LP as a neurology believes and infectious disease will is that her encephalopathy secondary to urinary tract infection. Patient is being treated for E. coli with Rocephin. Patient doesn't have any fevers but patient became more confused and agitated. Patient received of benzodiazepines which did increase to have agitation benzodiazepines will be discontinued and patient was started on Seroquel at nighttime patient didn't sleep for last couple days because of which family is concerned. Seroquel should help with her sleep as well as agitation and we will also use when necessary low-dose Haldol for agitation episodes agent is also having hallucinations. Discussed at length with cardiology regarding her anticoagulation the recording anticoagulation will discuss with the oncology as well for atrial fibrillation anticoagulation, will which she will be started on once her midline was placed tomorrow, patient is a being of multiple IV lines. Her motor aphasia significantly improved continues to have some sensory aphasia and remains confused Objective - Vital Signs Vital signs: Vital Signs Temp 97.3 F L 07/26/17 16:00 Pulse 93 07/26/17 16:00 Resp 20 07/26/17 16:00 BP 166/74 07/26/17 16:00 Pulse Ox 94 L 07/26/17 16:00 Intake & Output 07/25/17 07/26/17 07/26/17 18:59 06:59 18:59 Intake Total 210 240 Output Total 400 401 500 Balance -190 -401 -260 Weight 110 kg Intake: Oral 210 240 Output: Urine 400 401 500 Other: Voiding Method Indwelling Catheter Indwelling Catheter Indwelling Catheter # Voids 650 # Bowel Movements 1 1 3 # Emeses 1 - Exam PHYSICAL EXAMINATION: GENERAL: The patient is alert and oriented x0-1, not in any acute distress. Well developed, well nourished. HEENT: Pupils are round and equally reacting to light. EOMI. No scleral icterus. No conjunctival pallor. Normocephalic, atraumatic. No pharyngeal erythema. No thyromegaly. CARDIOVASCULAR: S1 and S2 present. No murmurs, rubs, or gallops. PULMONARY: Chest is clear to auscultation, no wheezing or crackles. ABDOMEN: Soft, nontender, nondistended, normoactive bowel sounds. No palpable organomegaly. MUSCULOSKELETAL: No joint swelling or deformity. EXTREMITIES: No cyanosis, clubbing, or pedal edema. NEUROLOGICAL: Still has motor aphasia unsure why patient is aphasic SKIN: No rashes. - Labs CBC & Chem 7: 07/25/17 06:31 07/26/17 07:02 Labs: Abnormal Lab Results - Last 24 Hours (Table) 07/25/17 07/26/17 07/26/17 Range/Units 16:37 07:02 11:53 BUN 24 H (7-17) mg/dL Creatinine 1.27 H (0.52-1.04) mg/dL Glucose 100 H (74-99) mg/dL POC Glucose (mg/dL) 129 H 102 H (75-99) mg/dL Assessment and Plan Plan: -Aphasia and altered mental status probably due to toxic encephalopathy from urinary tract infection patient is on Rocephin which will be continued infectious disease is following the patient patient up pansensitive E. coli. Atrial fibrillation: Presently rate controlled discussion regarding anti- correlation as mentioned above with the oncology. -Episodes of agitation secondary to delirium from benzodiazepines which will be discontinued patient has toxic encephalopathy from urinary tract infection as well as medications as mentioned above - endometrial cancer patient is receiving chemotherapy no evidence of metastatic disease -Rule out CVA, ruled out brain metastases next and-depression -Hypertension Deconditioning
[2017-07-26] MEDS: HALOPERIDOL 1 MG TAB PO PRN ×2 (17:15→23:29)
[2017-07-26] MEDS: ACETAMINOPHEN TAB 325 MG TAB PO PRN (21:33)
--- NOTE | 2017-07-26 23:20 | PN ---
PROGRESS NOTE DATE OF SERVICE: 07/26/2017 REASON FOR FOLLOWUP: E coli pyelonephritis. INTERVAL HISTORY: The patient is afebrile. She seems to be more awake and alert. She is breathing comfortably. Denies having any chest pain or cough and no abdominal pain or any diarrhea. PHYSICAL EXAMINATION: Blood pressure 166/74, pulse of 93, temperature 97.3. She is 94% on room air. General description is a middle-aged female lying in bed in no distress. RESPIRATORY SYSTEM: Unlabored breathing. Clear to auscultation anteriorly. HEART: S1, S2. Regular rate and rhythm. ABDOMEN: Soft. Minimally tender in the lower quadrant area. No guarding or rigidity. LABS: Hemoglobin 8.1, white count 3.3 with a BUN of 24, creatinine 1.27. Urine with an E coli that is a sensitive pathogen. DIAGNOSTIC IMPRESSION AND PLAN: Patient admitted to hospital with mental status changes and sepsis. Source is likely urinary with likely pyelonephritis. The patient was noticed to have some tenderness, for which a CT of abdomen and pelvis without oral contrast did show a pelvic soft tissue mass with mild left-sided hydronephrosis. No evidence of any abscess. Patient will continue on Rocephin and transition to oral antibiotic on discharge. Continue with supportive care. MMODL / IJN: [id number] /
--- NOTE | 2017-07-26 23:37 | P.PN ---
Subjective Progress Note Date: 07/26/17 This patient is a 62-year-old female being evaluated for acute encephalopathy and obtundation. Patient has a history of stage IV ovarian cancer. She has been very lethargic since admission to hospital. She was scheduled for MRI of the brain yesterday but this could not be completed as she became short of breath when flat on the gurney. The patient remained very much obtunded and does not open eyes yesterday. According to 2 of her daughters at the bedside she was clearly much more alert and awake about a week ago. She has shown a rapid decline. She is being followed by oncology as she has a known history of underlying ovarian cancer stage IV. Since the patient was unable to have MRI of the brain yesterday we are recommending that she be evaluated for lumbar puncture by anesthesia tomorrow for further evaluation of altered mental status. Would recommend to check for routine as well as special studies for possibility of encephalitis as well in this patient. Patient also has a known history of stage IV ovarian cancer. She should have spinal fluid evaluated for leptomeningeal carcinomatosis. Patient was able to have MRI of the brain completed today on 07/24/2017. MRI reveals no acute intracranial abnormality. Both punctate and confluent area ventricular white matter ischemic changes were noted. Suggesting small vessel disease. Retention cyst in the left maxillary sinus. There was no enhancing lesions noted. Fortunately this MRI is not indicating metastatic lesions to the brain. According to the daughter who is at bedside today her lumbar puncture has been canceled. We will await further recommendations from infectious disease regarding her LP status. Infectious disease is also following the patient closely. This patient's history was reviewed today with Dr. Forde. Since she is making very good progress in her mental status lumbar puncture is been placed on hold at this time. Apparently the patient was agitated last night as well as early this morning. She has required some Haldol for treatment of the agitation. Patient is much more awake and alert today. She is following simple commands. She is being treated for underlying urinary tract infection and likely has a resolving metabolic encephalopathy. We will continue close neurological follow-up for this patient. We'll await any further recommendations from infectious disease regarding possible lumbar puncture for the patient. At this time she remains afebrile and much more awake and alert then last week. Her overall prognosis at this time remains very guarded. Objective - Vital Signs Vital signs: Vital Signs Temp 97.3 F L 07/26/17 16:00 Pulse 93 07/26/17 16:00 Resp 20 07/26/17 16:00 BP 166/74 07/26/17 16:00 Pulse Ox 94 L 07/26/17 16:00 Intake & Output 07/26/17 07/26/17 07/27/17 06:59 18:59 06:59 Intake Total 440 Output Total 401 1100 Balance -401 -660 Weight 110 kg Intake: Oral 440 Output: Urine 401 1100 Other: Voiding Method Indwelling Catheter Indwelling Catheter # Voids 650 # Bowel Movements 1 2 # Emeses 1 - Exam Physical examination: PHYSICAL EXAMINATION: Patient is laying in bed. She does not open her eyes. VITAL SIGNS: Blood pressure is [160/74]. Heart rate is [93]. Respiration is [20] . Temperature is [97.3]. HEENT: Head is atraumatic, neck is supple, there were no carotid bruits. CHEST: Lungs are clear to auscultation and percussion. CARDIAC: S1, S2 normal rate and rhythm. There is no murmur. ABDOMEN: Soft and nontender. Bowel sounds are present. EXTREMITIES: There is no pedal edema. Peripheral pulses are present. Neurological examination: Patient is much more awake and alert today. She is able to answer some simple questions. According to the daughter who is at bedside she is much more her normal mentation. She is opening her eyes and has noted has been conversant with family members. She has remained slightly confused and agitated earlier today. She has no focal motor deficit. Deep tendon reflexes are symmetric. Plantar response is flexor bilaterally. - Labs CBC & Chem 7: 07/25/17 06:31 07/26/17 07:02 Labs: Abnormal Lab Results - Last 24 Hours (Table) 07/26/17 07/26/17 Range/Units 07:02 11:53 BUN 24 H (7-17) mg/dL Creatinine 1.27 H (0.52-1.04) mg/dL Glucose 100 H (74-99) mg/dL POC Glucose (mg/dL) 102 H (75-99) mg/dL Assessment and Plan (1) Acute encephalopathy Current Visit: Yes Status: Acute Code(s): G93.40 - ENCEPHALOPATHY, UNSPECIFIED SNOMED Code(s): 45655834 (2) Delirium due to general medical condition Current Visit: Yes Status: Acute Code(s): F05 - DELIRIUM DUE TO KNOWN PHYSIOLOGICAL CONDITION SNOMED Code(s): 4442071 (3) Endometrial cancer Current Visit: Yes Status: Acute Priority: High Code(s): C54.1 - MALIGNANT NEOPLASM OF ENDOMETRIUM SNOMED Code(s): 887643382 (4) Ovarian cancer Current Visit: Yes Status: Acute Code(s): C56.9 - MALIGNANT NEOPLASM OF UNSPECIFIED OVARY SNOMED Code(s): 691177096 Plan: This patient is a 62-year-old female who is being followed for history of severe obtundation following admission to hospital. She has a history of stage IV ovarian cancer and there was concern whether her mental status changes were related to her underlying cancer history. She underwent MRI of the brain results of which are noted above. MRI fails to reveal any evidence of metastatic lesions to the brain. Patient is being treated for urinary tract infection. Infectious disease is following her closely as well. She is showing significant improvement in her mental status in the last 2 days. She is now back to normal level of function and is able to answer questions appropriately. Lumbar puncture is been placed on hold. Case was discussed today with Dr. Forde. Patient is showing gradual improvement day by day. She most likely has a diffuse metabolic encephalopathy which is improving. She did show signs of agitation and confusion this morning. According to her daughter who is at bedside and she did not sleep very well yesterday. She is afebrile and shows no signs of meningeal irritation. Her lumbar puncture has remained on hold. We will wait to see if infectious disease recommends LP to be done for further assessment. Dr. Mead feels her type of cancer does not typically produce MATERIAL COMBINER symptoms such as leptomeningeal carcinomatosis. Her MRI of the brain also failed to reveal any enhancing lesions secondary to her underlying cancer. We will continue to follow her progress closely during this admission. Her overall prognosis at this time remains guarded.
[2017-07-27] MEDS: FAMOTIDINE 20 MG TAB PO SCH ×2 (07:15→10:23)
[2017-07-27] MEDS: VIT A,C & E-LUTEIN-MINERALS 1 EACH TAB PO SCH ×3 (07:16→21:43)
[2017-07-27] MEDS: ACETAMINOPHEN TAB 325 MG TAB PO PRN ×2 (07:59→22:44)
[2017-07-27] MEDS: SERTRALINE 25 MG TAB PO SCH (10:22)
[2017-07-27] MEDS: METOPROLOL TARTRATE 50 MG TAB PO SCH ×2 (10:22→21:43)
--- NOTE | 2017-07-27 11:14 | P.PN ---
Subjective Progress Note Date: 07/27/17 Principal diagnosis: AMS, UTI Pt and family seen in follow up. Pt is back to state of variable alertness, follows some commands, actions are not always purposeful. Objective - Vital Signs Vital signs: Vital Signs Temp 96.9 F L 07/27/17 04:00 Pulse 107 H 07/27/17 04:00 Resp 20 07/27/17 04:00 BP 140/80 07/27/17 04:00 Pulse Ox 94 L 07/27/17 09:12 Intake & Output 07/26/17 07/27/17 07/27/17 18:59 06:59 18:59 Intake Total 440 180 Output Total 1100 600 Balance -660 -600 180 Weight 117 kg Intake: Oral 440 180 Output: Urine 1100 600 Other: Voiding Method Indwelling Catheter Indwelling Catheter # Voids 650 # Bowel Movements 2 2 # Emeses 1 - Exam Pt is pale, is not exhibiting s/s pain, skin warm and dry, respirations even and unlabored, pt is moving all extremities independently. - Labs CBC & Chem 7: 07/25/17 06:31 07/26/17 07:02 Labs: Abnormal Lab Results - Last 24 Hours (Table) 07/26/17 Range/Units 11:53 POC Glucose (mg/dL) 102 H (75-99) mg/dL Assessment and Plan (1) Altered mental status Narrative/Plan: Pt mental status has declined in the last 24 hours. Did discuss case with Dr. Forde, plan is to proceed with LP and CSF work up for malignancy or infection. Pt family agreed with plan. Await results. Current Visit: Yes Status: Acute Priority: High Code(s): R41.82 - ALTERED MENTAL STATUS, UNSPECIFIED SNOMED Code(s): 602014107 (2) Endometrial cancer Narrative/Plan: CT AP results reviewed with family. The tumor has decreased in size, bone mets are questionable is stable or maybe a little worse, tumor marker at last check was down. Not suspected that pt presentation is r/t cancer but, need LP tp completely rule out malignant cause. Pt was on the last planned cycle of treatment, no plans for further chemotherapy. Current Visit: Yes Status: Acute Priority: High Code(s): C54.1 - MALIGNANT NEOPLASM OF ENDOMETRIUM SNOMED Code(s): 283125519
[2017-07-27] MEDS: cefTRIAXone IN SWFI 2,000 MG/20 ML SYRINGE IVP SCH (11:30)
[2017-07-27 11:49] VITALS: BMI 47.2
[2017-07-27 11:49] LABS: INR 0.9 (<1.2); Prothrombin Time 9.4 sec (9.0-12.0)
[2017-07-27 12:03] LABS: Partial Thromboplastin Time 19.6 sec (22.0-30.0)
--- NOTE | 2017-07-27 12:36 | PN ---
PROGRESS NOTE DATE OF SERVICE: 07/27/2017 REASON FOR FOLLOWUP: 1. E coli UTI infection. 2. Mental status changes, confusion. INTERVAL HISTORY: The patient was taken for a CT scan yesterday. While attempting to give her IV contrast, the patient became violently ill and was no finding on morphine drip of her IV. Patient has no fever. The patient did have mental status changes and remains to be confused and lethargic and unable to provide a history. No nausea, vomiting has been noticed or any diarrhea. Most of the information is obtained from the nursing staff as well as the sister present at the bedside. REVIEW OF SYSTEMS: Could not reliably be obtained. Past medical and surgical history unchanged. Medication reviewed. PHYSICAL EXAMINATION: Blood pressure 140/80 with a pulse of 107, temperature 96.9. She is 94% on room air. General description is a middle-aged female, lying in bed in no distress. HEENT EXAMINATION: Pallor. Oral mucosa is dry. LUNGS: Unlabored breathing, clear to auscultation with no wheeze or crackle. HEART: S1, S2. Regular rate and rhythm. ABDOMEN: Soft, no guarding or rigidity. EXTREMITIES: No edema of the feet. NEUROLOGIC: Patient remains to be lethargic, not open her eyes. NECK: Supple. LABS: BUN of 24, creatinine 1.27, white count 3.3 as of 07/25. Urine with an E coli is a sensitive pathogen. DIAGNOSTIC IMPRESSION AND PLAN: Patient admitted to the hospital with mental status changes with consult examination and Escherichia coli urinary tract infection. Patient has been on the broad-spectrum antibiotic and the patient initially did show some clinical improvement, now have significant change in her mentation as of last evening. Will do further workup by doing a lumbar puncture, sending the fluid for cell count and differential for protein and cytology. Keep the patient on Rocephin to cover for the UTI. Significant amount of time was spent with her sister and explained her condition. Time spent was 35 minutes. MMODL / IJN: [id number] /
[2017-07-27] MEDS: ASPIRIN-ACET-CAFF 250-250-65MG 1 EACH TAB PO PRN (15:17)
--- NOTE | 2017-07-27 16:23 | P.PN ---
Subjective 62-year-old that came in with altered mental status and aphasia altered mental status significant improved status still confused but alert oriented times close to 2 patient is being treated for urinary tract infection. Patient still remains aphasic although MRI did not show any metastatic lesions or any stroke. Neurology evaluated the patient patient is on Unasyn infectious disease is following the patient as well. 07/25/2017 Patient's aphasia improved significantly although patient is still confused patient appears to have typical Wernicke's although there is no significant abnormality on MRI. Patient may be encephalopathic. Discussed at length with the patient and family members today. Plan will be discussed regarding LP with the oncology and neurology. 07/26/2017 No plans for LP as a neurology believes and infectious disease will is that her encephalopathy secondary to urinary tract infection. Patient is being treated for E. coli with Rocephin. Patient doesn't have any fevers but patient became more confused and agitated. Patient received of benzodiazepines which did increase to have agitation benzodiazepines will be discontinued and patient was started on Seroquel at nighttime patient didn't sleep for last couple days because of which family is concerned. Seroquel should help with her sleep as well as agitation and we will also use when necessary low-dose Haldol for agitation episodes agent is also having hallucinations. Discussed at length with cardiology regarding her anticoagulation the recording anticoagulation will discuss with the oncology as well for atrial fibrillation anticoagulation, will which she will be started on once her midline was placed tomorrow, patient is a being of multiple IV lines. Her motor aphasia significantly improved continues to have some sensory aphasia and remains confused 07/27/2017 Patient can easily confused on and off. No fevers at this point of time abdominal CAT scan did not show any infectious process or abscess, patient is being treated for urinary tract infection patient received midline, heart rate is not well controlled. Patient will be started on anticoagulation. Objective - Vital Signs Vital signs: Vital Signs Temp 96.6 F L 07/27/17 12:00 Pulse 99 07/27/17 12:00 Resp 18 07/27/17 12:00 BP 159/75 07/27/17 12:00 Pulse Ox 96 07/27/17 12:00 Intake & Output 07/26/17 07/27/17 07/27/17 18:59 06:59 18:59 Intake Total 440 280 Output Total 1100 600 Balance -660 -600 280 Weight 117 kg 117 kg Intake: Oral 440 280 Output: Urine 1100 600 Other: Voiding Method Indwelling Catheter Indwelling Catheter Indwelling Catheter # Voids 650 # Bowel Movements 2 2 1 # Emeses 1 - Exam PHYSICAL EXAMINATION: GENERAL: The patient is alert and oriented x0-1, not in any acute distress. Well developed, well nourished. HEENT: Pupils are round and equally reacting to light. EOMI. No scleral icterus. No conjunctival pallor. Normocephalic, atraumatic. No pharyngeal erythema. No thyromegaly. CARDIOVASCULAR: S1 and S2 present. No murmurs, rubs, or gallops. PULMONARY: Chest is clear to auscultation, no wheezing or crackles. ABDOMEN: Soft, nontender, nondistended, normoactive bowel sounds. No palpable organomegaly. MUSCULOSKELETAL: No joint swelling or deformity. EXTREMITIES: No cyanosis, clubbing, or pedal edema. NEUROLOGICAL: Still has motor aphasia unsure why patient is aphasic SKIN: No rashes. - Labs CBC & Chem 7: 07/25/17 06:31 07/26/17 07:02 Labs: Abnormal Lab Results - Last 24 Hours (Table) 07/27/17 Range/Units 11:13 APTT 19.6 L (22.0-30.0) sec Assessment and Plan Plan: -Aphasia and altered mental status probably due to toxic encephalopathy from urinary tract infection patient is on Rocephin which will be continued infectious disease is following the patient patient up pansensitive E. coli. Atrial fibrillation: Presently rate controlled , patient will be started on anticoagulation dysuria midline today. -Episodes of agitation secondary to delirium from benzodiazepines which will be discontinued patient has toxic encephalopathy from urinary tract infection as well as medications as mentioned above - endometrial cancer patient is receiving chemotherapy no evidence of metastatic disease -Rule out CVA, ruled out brain metastases next and-depression -Hypertension Deconditioning
[2017-07-27 17:21] LABS: HCT 24.6 % (34.0-46.0); HGB 8.3 gm/dL (11.4-16.0); MCH 35.3 pg (25.0-35.0); MCV 103.8 fL (80.0-100.0); Macrocytosis Moderate; Mean Platelet Volume 8.2; RBC 2.37 m/uL (3.80-5.40); RDW 15.7 % (11.5-15.5); WBC 4.7 k/uL (3.8-10.6)
[2017-07-27 17:22] LABS: Platelet Count 62 k/uL (150-450)
--- NOTE | 2017-07-27 18:21 | P.PN ---
Progress Note - Text Progress Note Date: 07/27/17 62 years old female with altered mental status, diagnostic lumbar puncture was requested from anesthesia services, patient blood work showed , that she had platelet count 62, for this reason diagnostic lumbar puncture cannot be done, until her platelet count around 100,
[2017-07-27] MEDS ORDERED: QUEtiapine 25 MG TAB PO PRN (18:50)
[2017-07-27] MEDS: APIXABAN 5 MG TAB PO SCH (21:43)
[2017-07-27] MEDS: SODIUM CHLORIDE 0.9% 1,000 ML IV SCH (21:43)
--- NOTE | 2017-07-28 00:03 | P.PN ---
Subjective Progress Note Date: 07/27/17 This patient is a 62-year-old female being evaluated for acute encephalopathy and obtundation. Patient has a history of stage IV ovarian cancer. She has been very lethargic since admission to hospital. She was scheduled for MRI of the brain yesterday but this could not be completed as she became short of breath when flat on the gurney. The patient remained very much obtunded and does not open eyes yesterday. According to 2 of her daughters at the bedside she was clearly much more alert and awake about a week ago. She has shown a rapid decline. She is being followed by oncology as she has a known history of underlying ovarian cancer stage IV. Since the patient was unable to have MRI of the brain yesterday we are recommending that she be evaluated for lumbar puncture by anesthesia tomorrow for further evaluation of altered mental status. Would recommend to check for routine as well as special studies for possibility of encephalitis as well in this patient. Patient also has a known history of stage IV ovarian cancer. She should have spinal fluid evaluated for leptomeningeal carcinomatosis. Patient was able to have MRI of the brain completed today on 07/24/2017. MRI reveals no acute intracranial abnormality. Both punctate and confluent area ventricular white matter ischemic changes were noted. Suggesting small vessel disease. Retention cyst in the left maxillary sinus. There was no enhancing lesions noted. Fortunately this MRI is not indicating metastatic lesions to the brain. According to the daughter who is at bedside today her lumbar puncture has been canceled. We will await further recommendations from infectious disease regarding her LP status. Infectious disease is also following the patient closely. This patient's history was reviewed today with Dr. Forde. Since she is making very good progress in her mental status lumbar puncture is been placed on hold at this time. Apparently the patient was agitated last night as well as early this morning. She has required some Haldol for treatment of the agitation. Patient is much more awake and alert today. She is following simple commands. She is being treated for underlying urinary tract infection and likely has a resolving metabolic encephalopathy. We will continue close neurological follow-up for this patient. We will await any further recommendations from infectious disease regarding possible lumbar puncture for the patient. At this time she remains afebrile and much more awake and alert then last week. It was decided to proceed with lumbar puncture due to this patient's altered mental status. Oncology is also in agreement to proceed with LP for the patient. Unfortunately her platelet count was low today and LP was canceled. We will await further recommendations from oncology to see if she requires platelet transfusion. We will continue close monitoring for this patient during this admission. Her sister who is at bedside was updated on her current neurological status and condition. Her overall prognosis at this time remains very guarded. Objective - Vital Signs Vital signs: Vital Signs Temp 96.8 F L 07/27/17 07:55 Pulse 100 07/27/17 07:55 Resp 18 07/27/17 07:55 BP 115/78 07/27/17 07:55 Pulse Ox 94 L 07/27/17 09:12 Intake & Output 07/26/17 07/27/17 07/27/17 18:59 06:59 18:59 Intake Total 440 180 Output Total 1100 600 Balance -660 -600 180 Weight 117 kg 117 kg Intake: Oral 440 180 Output: Urine 1100 600 Other: Voiding Method Indwelling Catheter Indwelling Catheter Indwelling Catheter # Voids 650 # Bowel Movements 2 2 # Emeses 1 - Exam Physical examination: PHYSICAL EXAMINATION: Patient is laying in bed. She does not open her eyes. VITAL SIGNS: Blood pressure is [140/83]. Heart rate is [77]. Respiration is [18] . Temperature is [97.9]. HEENT: Head is atraumatic, neck is supple, there were no carotid bruits. CHEST: Lungs are clear to auscultation and percussion. CARDIAC: S1, S2 normal rate and rhythm. There is no murmur. ABDOMEN: Soft and nontender. Bowel sounds are present. EXTREMITIES: There is no pedal edema. Peripheral pulses are present. Neurological examination: Patient is much more awake and alert today. She is able to answer some simple questions. According to the daughter who is at bedside she is much more her normal mentation. She is opening her eyes and has noted has been conversant with family members. She has remained slightly confused and agitated earlier today. She has no focal motor deficit. Deep tendon reflexes are symmetric. Plantar response is flexor bilaterally. - Labs CBC & Chem 7: 07/27/17 17:00 07/26/17 07:02 Labs: Abnormal Lab Results - Last 24 Hours (Table) 07/27/17 Range/Units 11:13 APTT 19.6 L (22.0-30.0) sec Assessment and Plan (1) Acute encephalopathy Current Visit: Yes Status: Acute Code(s): G93.40 - ENCEPHALOPATHY, UNSPECIFIED SNOMED Code(s): 46278171 (2) Delirium due to general medical condition Current Visit: Yes Status: Acute Code(s): F05 - DELIRIUM DUE TO KNOWN PHYSIOLOGICAL CONDITION SNOMED Code(s): 4575445 (3) Endometrial cancer Current Visit: Yes Status: Acute Priority: High Code(s): C54.1 - MALIGNANT NEOPLASM OF ENDOMETRIUM SNOMED Code(s): 398463139 (4) Ovarian cancer Current Visit: Yes Status: Acute Code(s): C56.9 - MALIGNANT NEOPLASM OF UNSPECIFIED OVARY SNOMED Code(s): 641080889 Plan: This patient is a 62-year-old female who is being followed for history of severe obtundation following admission to hospital. She has a history of stage IV ovarian cancer and there was concern whether her mental status changes were related to her underlying cancer history. She underwent MRI of the brain results of which are noted above. MRI fails to reveal any evidence of metastatic lesions to the brain. Patient is being treated for urinary tract infection. Infectious disease is following her closely as well. She is showing significant improvement in her mental status in the last 2 days. She is now back to normal level of function and is able to answer questions appropriately. Lumbar puncture is been placed on hold. Case was discussed today with Dr. Forde. Patient is showing gradual improvement day by day. She most likely has a diffuse metabolic encephalopathy which is improving. She did show signs of agitation and confusion this morning. According to her daughter who is at bedside and she did not sleep very well yesterday. She is afebrile and shows no signs of meningeal irritation. Her lumbar puncture has remained on hold. We will wait to see if infectious disease recommends LP to be done for further assessment. Dr. Mead feels her type of cancer does not typically produce [employer] symptoms such as leptomeningeal carcinomatosis. Her MRI of the brain also failed to reveal any enhancing lesions secondary to her underlying cancer. Plans are to proceed with lumbar puncture for this patient. Due to her low platelet count this procedure was canceled today. We will wait to see if the patient will require platelet transfusion and proceed with LP again tomorrow. We will continue to follow her progress closely during this admission. Her overall prognosis at this time remains guarded.
[2017-07-28 08:43] LABS: HCT 25.1 % (34.0-46.0); HGB 8.3 gm/dL (11.4-16.0); MCH 34.5 pg (25.0-35.0); MCHC 33.1 g/dL (31.0-37.0); MCV 104.2 fL (80.0-100.0); Macrocytosis Moderate; Mean Platelet Volume 8.6; Platelet Count 63 k/uL (150-450); RBC 2.41 m/uL (3.80-5.40); RDW 15.7 % (11.5-15.5); WBC 3.6 k/uL (3.8-10.6)
[2017-07-28 09:01] LABS: Calcium 8.7 mg/dL (8.4-10.2); Potassium 4.2 mmol/L (3.5-5.1)
[2017-07-28] MEDS: APIXABAN 5 MG TAB PO SCH (09:53)
[2017-07-28] MEDS: ACETAMINOPHEN TAB 325 MG TAB PO PRN (09:53)
[2017-07-28] MEDS: FAMOTIDINE 20 MG TAB PO SCH (09:54)
[2017-07-28] MEDS: METOPROLOL TARTRATE 50 MG TAB PO SCH ×2 (09:54→20:29)
[2017-07-28] MEDS: VIT A,C & E-LUTEIN-MINERALS 1 EACH TAB PO SCH ×2 (09:54→20:28)
[2017-07-28] MEDS: SERTRALINE 25 MG TAB PO SCH (09:54)
[2017-07-28] MEDS: cefTRIAXone IN SWFI 2,000 MG/20 ML SYRINGE IVP SCH (09:54)
--- NOTE | 2017-07-28 10:38 | P.PN ---
Subjective 62-year-old that came in with altered mental status and aphasia altered mental status significant improved status still confused but alert oriented times close to 2 patient is being treated for urinary tract infection. Patient still remains aphasic although MRI did not show any metastatic lesions or any stroke. Neurology evaluated the patient patient is on Unasyn infectious disease is following the patient as well. 07/25/2017 Patient's aphasia improved significantly although patient is still confused patient appears to have typical Wernicke's although there is no significant abnormality on MRI. Patient may be encephalopathic. Discussed at length with the patient and family members today. Plan will be discussed regarding LP with the oncology and neurology. 07/26/2017 No plans for LP as a neurology believes and infectious disease will is that her encephalopathy secondary to urinary tract infection. Patient is being treated for E. coli with Rocephin. Patient doesn't have any fevers but patient became more confused and agitated. Patient received of benzodiazepines which did increase to have agitation benzodiazepines will be discontinued and patient was started on Seroquel at nighttime patient didn't sleep for last couple days because of which family is concerned. Seroquel should help with her sleep as well as agitation and we will also use when necessary low-dose Haldol for agitation episodes agent is also having hallucinations. Discussed at length with cardiology regarding her anticoagulation the recording anticoagulation will discuss with the oncology as well for atrial fibrillation anticoagulation, will which she will be started on once her midline was placed tomorrow, patient is a being of multiple IV lines. Her motor aphasia significantly improved continues to have some sensory aphasia and remains confused 07/27/2017 Patient can easily confused on and off. No fevers at this point of time abdominal CAT scan did not show any infectious process or abscess, patient is being treated for urinary tract infection patient received midline, heart rate is not well controlled. Patient will be started on anticoagulation. 07/28/2017 Patient is more awake today still confused quite a bit getting IV fluids creatinine improved continuing IV fluids. He received platelets will undergo lumbar puncture today Objective - Vital Signs Vital signs: Vital Signs Temp 97.9 F 07/28/17 07:35 Pulse 100 07/28/17 07:35 Resp 18 07/28/17 07:35 BP 152/75 07/28/17 07:35 Pulse Ox 93 L 07/28/17 07:35 Intake & Output 07/27/17 07/28/1707/28/18 18:59 06:59 18:59 Intake Total 280 715 Balance 280 715 Weight 117 kg 114.5 kg Intake: Intake, IV Titration 675 Amount Sodium Chloride 0.9% 1, 675 000 ml @ 75 mls/hr IV . [id number] ADAN Rx#:[id number] Oral 280 40 Other: Voiding Method Indwelling Catheter Indwelling Catheter # Bowel Movements 1 1 - Exam PHYSICAL EXAMINATION: GENERAL: The patient is alert and oriented x0-1, not in any acute distress. Well developed, well nourished. HEENT: Pupils are round and equally reacting to light. EOMI. No scleral icterus. No conjunctival pallor. Normocephalic, atraumatic. No pharyngeal erythema. No thyromegaly. CARDIOVASCULAR: S1 and S2 present. No murmurs, rubs, or gallops. PULMONARY: Chest is clear to auscultation, no wheezing or crackles. ABDOMEN: Soft, nontender, nondistended, normoactive bowel sounds. No palpable organomegaly. MUSCULOSKELETAL: No joint swelling or deformity. EXTREMITIES: No cyanosis, clubbing, or pedal edema. NEUROLOGICAL: Still has motor aphasia unsure why patient is aphasic SKIN: No rashes. - Labs CBC & Chem 7: 07/28/17 07:37 07/28/17 07:37 Labs: Abnormal Lab Results - Last 24 Hours (Table) 07/27/17 07/27/17 07/28/17 Range/Units 11:13 17:00 07:37 WBC 3.6 L (3.8-10.6) k/uL RBC 2.37 L 2.41 L (3.80-5.40) m/uL Hgb 8.3 L 8.3 L (11.4-16.0) gm/dL Hct 24.6 L 25.1 L (34.0-46.0) % MCV 103.8 H 104.2 H (80.0-100.0) fL MCH 35.3 H (25.0-35.0) pg RDW 15.7 H 15.7 H (11.5-15.5) % Plt Count 62 L 63 L (150-450) k/uL APTT 19.6 L (22.0-30.0) sec Chloride (98-107) mmol/L BUN (7-17) mg/dL Creatinine (0.52-1.04) mg/dL 07/28/17 Range/Units 07:37 WBC (3.8-10.6) k/uL RBC (3.80-5.40) m/uL Hgb (11.4-16.0) gm/dL Hct (34.0-46.0) % MCV (80.0-100.0) fL MCH (25.0-35.0) pg RDW (11.5-15.5) % Plt Count (150-450) k/uL APTT (22.0-30.0) sec Chloride 109 H (98-107) mmol/L BUN 22 H (7-17) mg/dL Creatinine 1.05 H (0.52-1.04) mg/dL Assessment and Plan Plan: -Aphasia and altered mental status probably due to toxic encephalopathy from urinary tract infection patient is on Rocephin which will be continued infectious disease is following the patient patient up pansensitive E. coli. Patient will undergo lumbar puncture to see any Atrial fibrillation: Presently rate controlled , patient will be started on anticoagulation dysuria midline today. -Episodes of agitation secondary to delirium from benzodiazepines which will be discontinued patient has toxic encephalopathy from urinary tract infection as well as medications as mentioned above - endometrial cancer patient is receiving chemotherapy no evidence of metastatic disease -Rule out CVA, ruled out brain metastases next and-depression -Hypertension Deconditioning
[2017-07-28] MEDS: SODIUM CHLORIDE 0.9% 1,000 ML IV SCH ×3 (11:49→11:51)
--- NOTE | 2017-07-28 12:19 | P.PN ---
Subjective Progress Note Date: 07/28/17 Principal diagnosis: AMS, UTI Patient seen today in follow-up with 2 family members at the bedside. Patient is again lucid today. He is sitting up in bed, she is able to answer questions they have not all of them correctly, she denied nausea, difficulty in breathing or pain. Objective - Vital Signs Vital signs: Vital Signs Temp 97.9 F 07/28/17 07:35 Pulse 100 07/28/17 07:35 Resp 18 07/28/17 07:35 BP 152/75 07/28/17 07:35 Pulse Ox 93 L 07/28/17 07:35 Intake & Output 07/27/17 07/28/17 07/28/17 18:59 06:59 18:59 Intake Total 280 715 Balance 280 715 Weight 117 kg 114.5 kg Intake: Intake, IV Titration 675 Amount Sodium Chloride 0.9% 1, 675 000 ml @ 75 mls/hr IV . [id number] ADAN Rx#:[id number] Oral 280 40 Other: Voiding Method Indwelling Catheter Indwelling Catheter # Bowel Movements 1 1 - Constitutional General appearance: Present: cooperative, no acute distress, obese - EENT Eyes: Present: anicteric sclerae, poor dentition - Respiratory Respiratory: bilateral: CTA - Cardiovascular Heart sounds: normal: S1, S2 - Peripheral edema leg Peripheral Edema: bilateral: 1+ - Gastrointestinal General gastrointestinal: Present: normal bowel sounds, soft - Integumentary Integumentary: Present: pale - Neurologic Neurologic Comment(s): Patient's facial movements are symmetrical, she can move her upper extremities, today she is moving with purpose. - Musculoskeletal Musculoskeletal Comment(s): patient cannot reposition herself. - Psychiatric Psychiatric Comment(s): Oriented to self only, knew her birthdate, remembered remote address from years ago but not her current one, she thought it was January and that the season was fall. - Labs CBC & Chem 7: 07/28/17 07:37 07/28/17 07:37 Labs: Abnormal Lab Results - Last 24 Hours (Table) 07/27/17 07/28/17 07/28/17 Range/Units 17:00 07:37 07:37 WBC 3.6 L (3.8-10.6) k/uL RBC 2.37 L 2.41 L (3.80-5.40) m/uL Hgb 8.3 L 8.3 L (11.4-16.0) gm/dL Hct 24.6 L 25.1 L (34.0-46.0) % MCV 103.8 H 104.2 H (80.0-100.0) fL MCH 35.3 H (25.0-35.0) pg RDW 15.7 H 15.7 H (11.5-15.5) % Plt Count 62 L 63 L (150-450) k/uL Chloride 109 H (98-107) mmol/L BUN 22 H (7-17) mg/dL Creatinine 1.05 H (0.52-1.04) mg/dL Assessment and Plan (1) Altered mental status Narrative/Plan: Patient has vacillated between lucidity and confusion and even obtunded over the last 7 days. She has been treated with antibiotics, MRI of the brain was negative for metastatic lesions, patient has had CT of the abdomen and pelvis not revealing any infectious source, urine culture was positive for E. coli. Patient is being treated for the same. Infectious disease did plan for LP but, platelets are 63,000 and patient mental status did improve today, will see what the recommendation is from ID standpoint. Current Visit: Yes Status: Acute Priority: High Code(s): R41.82 - ALTERED MENTAL STATUS, UNSPECIFIED SNOMED Code(s): 601094026 (2) Endometrial cancer Narrative/Plan: Objectively patient has had a good response to treatment. Tumor in the pelvis as well as smaller, CA-125 is down. Plan is for patient to be reevaluated once her current situation has been treated and see if she is a candidate for further chemotherapy. Family did ask about surgical re-evaluation, patient would be sent back to [facility] for that and only a [employer]BS[employer]ER HELPER oncologist could answer that question for them. They do understand that the patient was not a surgical candidate prior to chemo due to co-morbidities and that those co-morbidities have not changed. Current Visit: Yes Status: Acute Priority: High Code(s): C54.1 - MALIGNANT NEOPLASM OF ENDOMETRIUM SNOMED Code(s): 573722102 Plan: Doctor attests: I performed a history and physical examination of this patient, discussed with dictator. I agree with dictators note, documented as a scribe.
--- NOTE | 2017-07-28 12:24 | PN ---
PROGRESS NOTE DATE OF SERVICE: 07/28/2017 REASON FOR FOLLOWUP: E. coli urinary tract infection and possible encephalitis. INTERVAL HISTORY: The patient is afebrile. She remains to be weak and pleasantly confused but more awake compared to yesterday. Did not have any recollection of what happened yesterday, but denies having any headache, no nausea, vomiting and seemed to be appropriate in answering some of the questions. No nausea, vomiting or any diarrhea. PHYSICAL EXAMINATION: Blood pressure 152/75, pulse of 100, temperature 97.9, she is 93% on room air. General description is a middle-aged female, lying in bed in no distress. RESPIRATORY SYSTEM: Unlabored breathing, clear to auscultation anteriorly. HEART: S1, S2. Regular rate and rhythm. ABDOMEN: Soft, no tenderness. LABS: Hemoglobin 8.8, white count of 3.6, BUN of 22, creatinine 1.05. DIAGNOSTIC IMPRESSION AND PLAN: 1. Patient with an Escherichia coli urinary tract infection, currently covered with Rocephin. 2. Patient with mental status changes and confusion, hence multifactorial, awaiting the platelet transfusion to rule out etiology. Family was present at bedside. Their questions were answered. MMODL / IJN: [id number] /
--- NOTE | 2017-07-28 20:26 | P.PN ---
Subjective Progress Note Date: 07/28/17 This patient is a 62-year-old female being evaluated for acute encephalopathy and obtundation. Patient has a history of stage IV ovarian cancer. She has been very lethargic since admission to hospital. She was scheduled for MRI of the brain yesterday but this could not be completed as she became short of breath when flat on the gurney. The patient remained very much obtunded and does not open eyes yesterday. According to 2 of her daughters at the bedside she was clearly much more alert and awake about a week ago. She has shown a rapid decline. She is being followed by oncology as she has a known history of underlying ovarian cancer stage IV. Since the patient was unable to have MRI of the brain yesterday we are recommending that she be evaluated for lumbar puncture by anesthesia tomorrow for further evaluation of altered mental status. Would recommend to check for routine as well as special studies for possibility of encephalitis as well in this patient. Patient also has a known history of stage IV ovarian cancer. She should have spinal fluid evaluated for leptomeningeal carcinomatosis. Patient was able to have MRI of the brain completed today on 07/24/2017. MRI reveals no acute intracranial abnormality. Both punctate and confluent area ventricular white matter ischemic changes were noted. Suggesting small vessel disease. Retention cyst in the left maxillary sinus. There was no enhancing lesions noted. Fortunately this MRI is not indicating metastatic lesions to the brain. According to the daughter who is at bedside today her lumbar puncture has been placed on hold at this time. Her platelet count came back at 63,000 and anesthesia will not perform the lumbar puncture until her platelet count is in a normal range. She is also recommended to discontinue Eloquis for 3 days prior to lumbar puncture. We will await further recommendations from infectious disease and oncology regarding her LP status. Infectious disease is also following the patient closely. This patient's history was reviewed today with Dr. Forde. Today the patient's mental status has improved. She is much more awake and alert and talkative. Her overall mental status seems to wax and wane. Family member at bedside states that she still has episodes of confusion. We will continue further management as per infectious disease regarding her septic picture. Patient is being treated for E. coli urinary tract infection and is currently covered with Rocephin. As per Dr. Forde he is awaiting platelet transfusion for this patient and possibly to move forward with lumbar puncture. Her overall prognosis at this time remains guarded. Objective - Vital Signs Vital signs: Vital Signs Temp 98 F 07/28/17 16:06 Pulse 101 H 07/28/17 16:06 Resp 20 07/28/17 16:06 BP 137/82 07/28/17 16:06 Pulse Ox 91 L 07/28/17 16:06 Intake & Output 07/28/17 07/28/17 07/29/17 06:59 18:59 06:59 Intake Total 715 600 40 Balance 715 600 40 Weight 114.5 kg Intake: Intake, IV Titration 675 600 Amount Sodium Chloride 0.9% 1, 675 000 ml @ 75 mls/hr IV . [id number] [facility] Rx#:[id number] Sodium Chloride 0.9% 1, 600 000 ml @ 75 mls/hr IV . [id number] [facility] Rx#:[id number] Oral 40 40 Other: Voiding Method Indwelling Catheter Indwelling Catheter # Bowel Movements 1 1 - Exam Physical examination: PHYSICAL EXAMINATION: Patient is laying in bed. She does not open her eyes. VITAL SIGNS: Blood pressure is [137/82]. Heart rate is [101]. Respiration is [20 ]. Temperature is [98.0]. HEENT: Head is atraumatic, neck is supple, there were no carotid bruits. CHEST: Lungs are clear to auscultation and percussion. CARDIAC: S1, S2 normal rate and rhythm. There is no murmur. ABDOMEN: Soft and nontender. Bowel sounds are present. EXTREMITIES: There is no pedal edema. Peripheral pulses are present. Neurological examination: Patient is much more awake and alert today. She is able to answer some simple questions. According to the daughter who is at bedside she is much more her normal mentation. She is opening her eyes and has noted has been conversant with family members. She she is much more awake and alert today as compared to yesterday. She is following simple commands. Patient remains afebrile. - Labs CBC & Chem 7: 07/28/17 07:37 07/28/17 07:37 Labs: Abnormal Lab Results - Last 24 Hours (Table) 07/28/17 07/28/17 Range/Units 07:37 07:37 WBC 3.6 L (3.8-10.6) k/uL RBC 2.41 L (3.80-5.40) m/uL Hgb 8.3 L (11.4-16.0) gm/dL Hct 25.1 L (34.0-46.0) % MCV 104.2 H (80.0-100.0) fL RDW 15.7 H (11.5-15.5) % Plt Count 63 L (150-450) k/uL Chloride 109 H (98-107) mmol/L BUN 22 H (7-17) mg/dL Creatinine 1.05 H (0.52-1.04) mg/dL Assessment and Plan (1) Acute encephalopathy Current Visit: Yes Status: Acute Code(s): G93.40 - ENCEPHALOPATHY, UNSPECIFIED SNOMED Code(s): 49847559 (2) Delirium due to general medical condition Current Visit: Yes Status: Acute Code(s): F05 - DELIRIUM DUE TO KNOWN PHYSIOLOGICAL CONDITION SNOMED Code(s): 2373225 (3) Endometrial cancer Current Visit: Yes Status: Acute Priority: High Code(s): C54.1 - MALIGNANT NEOPLASM OF ENDOMETRIUM SNOMED Code(s): 403462270 (4) Ovarian cancer Current Visit: Yes Status: Acute Code(s): C56.9 - MALIGNANT NEOPLASM OF UNSPECIFIED OVARY SNOMED Code(s): 056987239 Plan: This patient is a 62-year-old female who is being followed for history of severe obtundation following admission to hospital. She has a history of stage IV ovarian cancer and there was concern whether her mental status changes were related to her underlying cancer history. She underwent MRI of the brain results of which are noted above. MRI fails to reveal any evidence of metastatic lesions to the brain. Patient is being treated for urinary tract infection. Infectious disease is following her closely as well. She is showing significant improvement in her mental status in the last 2 days. She is now back to normal level of function and is able to answer questions appropriately. Lumbar puncture is been placed on hold. Case was discussed today with Dr. Forde. Patient is showing gradual improvement day by day. She most likely has a diffuse metabolic encephalopathy which is improving. She did show signs of agitation and confusion this morning. According to her daughter who is at bedside and she did not sleep very well yesterday. She is afebrile and shows no signs of meningeal irritation. Her lumbar puncture has remained on hold. We will wait to see if infectious disease recommends LP to be done for further assessment. Dr. Mead feels her type of cancer does not typically produce WAGE CONCILIATOR symptoms such as leptomeningeal carcinomatosis. Her MRI of the brain also failed to reveal any enhancing lesions secondary to her underlying cancer. Plans are to proceed with lumbar puncture for this patient. Due to her low platelet count this procedure was canceled yesterday. Anesthesia was consulted today and they have given further recommendations including that she would require platelet transfusion as well as remain off of Eliquis for 3 days prior to any lumbar puncture procedure. Infectious disease and oncology are following the patient closely. We will await their further recommendations as well. We will continue to follow her progress closely during this admission. Her overall neurological exam at this time is still consistent with a diffuse encephalopathy which is showing some signs of improvement. Case was discussed today with the daughter at bedside. All questions were answered. She is aware of her guarded condition. Her overall prognosis at this time remains guarded.
[2017-07-28] MEDS: ASPIRIN-ACET-CAFF 250-250-65MG 1 EACH TAB PO PRN (20:28)
[2017-07-29] MEDS: cefTRIAXone IN SWFI 2,000 MG/20 ML SYRINGE IVP SCH (09:43)
[2017-07-29] MEDS: FAMOTIDINE 20 MG TAB PO SCH (09:43)
[2017-07-29] MEDS: METOPROLOL TARTRATE 50 MG TAB PO SCH ×2 (09:43→21:04)
[2017-07-29] MEDS: SERTRALINE 25 MG TAB PO SCH (09:44)
[2017-07-29] MEDS: VIT A,C & E-LUTEIN-MINERALS 1 EACH TAB PO SCH ×2 (09:44→21:04)
[2017-07-29] MEDS: SODIUM CHLORIDE 0.9% 1,000 ML IV SCH (13:36)
--- NOTE | 2017-07-29 13:42 | PN ---
PROGRESS NOTE DATE OF SERVICE: 07/29/2017. REASON FOR FOLLOWUP: E coli urinary tract infection. INTERVAL HISTORY: The patient is afebrile. Her mentation overall has improved. However, the patient has ripped off her IV and currently with no IV access and cannot receive her antibiotic. The patient denies having any chest pain. No shortness of breath. No abdominal pain or any diarrhea. EXAMINATION: Blood pressure is 165/90 with a pulse of 90, temperature 97.8. She is 95% on room air. General description is a middle-aged female lying in bed in no distress. RESPIRATORY SYSTEM: Unlabored breathing. Clear to auscultation anteriorly. HEART: S1, S2. Regular rate and rhythm. ABDOMEN: Soft, no tenderness. LABS: No new labs have been obtained today. DIAGNOSTIC IMPRESSION AND PLAN: Patient with an E coli urinary tract infection that has been a sensitive pathogen. The patient lost her IV and cannot get Rocephin. The patient cannot be given the Cipro because the patient is on Seroquel with drug interaction, hence, will switch her over to Ceftin 500 mg twice a day for underlying urinary tract infection and discontinue the Rocephin. There was also a question of possible encephalopathy for her mental status changes. However, the patient cannot get the lumbar puncture because of her thrombocytopenia and she is on Eliquis at this moment. The benefit of the lumbar puncture examination outweigh the risks associated with it; hence, we will hold on the lumbar puncture at this point. This was discussed in detail with the Oncology team. Continue supportive care. MMODL / IJN: [id number] /
[2017-07-29] MEDS: ACETAMINOPHEN TAB 325 MG TAB PO PRN (13:46)
[2017-07-29] MEDS: NYSTATIN 100,000 UNIT/ML SUSP 500,000 UNIT/5 ML CUP PO SCH ×3 (13:47→21:04)
--- NOTE | 2017-07-29 13:58 | P.PN ---
Subjective Progress Note Date: 07/29/17 Principal diagnosis: AMS, UTI Pt seen in follow up, she is more alert, does not recall the events of the last week. She feels good, is communicating more like her normal self with her family, brother and sister at bedside feel that pt is doing much better. Pt denies nausea, APRIL, hunger, need to go to the bathroom, she stood with PT for 30 seconds with walker. Objective - Vital Signs Vital signs: Vital Signs Temp 97.8 F 07/29/17 08:40 Pulse 90 07/29/17 08:40 Resp 20 07/29/17 08:40 BP 165/90 07/29/17 08:40 Pulse Ox 95 07/29/17 08:40 Intake & Output 07/28/17 07/29/17 07/29/17 18:59 06:59 18:59 Intake Total 600 220 Output Total 1 Balance 600 219 Intake: Intake, IV Titration 600 Amount Sodium Chloride 0.9% 1, 600 000 ml @ 75 mls/hr IV . [id number] [facility] Rx#:[id number] Oral 220 Output: Stool 1 Other: Voiding Method Indwelling Catheter Indwelling Catheter Indwelling Catheter # Voids 1 1 # Bowel Movements 1 3 - Constitutional General appearance: Present: cooperative, no acute distress, obese - EENT Eyes: Present: anicteric sclerae ENT: Present: thrush - Respiratory Respiratory: bilateral: CTA - Cardiovascular Heart sounds: normal: S1, S2 - Peripheral edema leg Peripheral Edema: bilateral: Trace - Gastrointestinal General gastrointestinal: Present: normal bowel sounds, soft - Integumentary Integumentary: Present: pale - Neurologic Neurologic Comment(s): speech is less slurred today, EOMs purposeful movements - Psychiatric Psychiatric Comment(s): Alert, remembered her current home address today, knows she is at [facility], does not know for how long. - Labs CBC & Chem 7: 07/28/17 07:37 07/28/17 07:37 Assessment and Plan (1) Altered mental status Narrative/Plan: Initial improvement with regression but yesterday and today continued slow improvement. Case discussed with Internal Medicine and Infectious Disease. Hold off on LP for now. Pt has been on anticoagulation and her platelet count is in the 60, 000 range so risk of the procedure outweighs the benefit at this time. Concern was for a HEALTH ANALYTICS CONSULTANT pathology but, now that we have ongoing improvement in mental status the procedure can be deferred unless condition changes. Current Visit: Yes Status: Acute Priority: High Code(s): R41.82 - ALTERED MENTAL STATUS, UNSPECIFIED SNOMED Code(s): 375286447 (2) Endometrial cancer Narrative/Plan: Pt had 5 complete cycles of taxol/carbo and day [address] results are felt to represent stable disease. Pt will follow up with Dr. Israel for how pt will monitored/treated from here. Appt date and time in chart. Current Visit: Yes Status: Acute Priority: High Code(s): C54.1 - MALIGNANT NEOPLASM OF ENDOMETRIUM SNOMED Code(s): 591447845
[2017-07-29] MEDS: CEFUROXIME 250 MG TAB PO SCH ×2 (15:37→21:04)
--- NOTE | 2017-07-29 17:40 | P.PN ---
Subjective 62-year-old that came in with altered mental status and aphasia altered mental status significant improved status still confused but alert oriented times close to 2 patient is being treated for urinary tract infection. Patient still remains aphasic although MRI did not show any metastatic lesions or any stroke. Neurology evaluated the patient patient is on Unasyn infectious disease is following the patient as well. 07/25/2017 Patient's aphasia improved significantly although patient is still confused patient appears to have typical Wernicke's although there is no significant abnormality on MRI. Patient may be encephalopathic. Discussed at length with the patient and family members today. Plan will be discussed regarding LP with the oncology and neurology. 07/26/2017 No plans for LP as a neurology believes and infectious disease will is that her encephalopathy secondary to urinary tract infection. Patient is being treated for E. coli with Rocephin. Patient doesn't have any fevers but patient became more confused and agitated. Patient received of benzodiazepines which did increase to have agitation benzodiazepines will be discontinued and patient was started on Seroquel at nighttime patient didn't sleep for last couple days because of which family is concerned. Seroquel should help with her sleep as well as agitation and we will also use when necessary low-dose Haldol for agitation episodes agent is also having hallucinations. Discussed at length with cardiology regarding her anticoagulation the recording anticoagulation will discuss with the oncology as well for atrial fibrillation anticoagulation, will which she will be started on once her midline was placed tomorrow, patient is a being of multiple IV lines. Her motor aphasia significantly improved continues to have some sensory aphasia and remains confused 07/27/2017 Patient can easily confused on and off. No fevers at this point of time abdominal CAT scan did not show any infectious process or abscess, patient is being treated for urinary tract infection patient received midline, heart rate is not well controlled. Patient will be started on anticoagulation. 07/28/2017 Patient is more awake today still confused quite a bit getting IV fluids creatinine improved continuing IV fluids. He received platelets will undergo lumbar puncture today 07/29/2017 Patient remains confused, patient is unable to her lumbar puncture as radiology and the anesthesiologist not comfortable with doing LP with the low platelet count of 60,000. Objective - Vital Signs Vital signs: Vital Signs Temp 97.4 F L 07/29/17 15:00 Pulse 91 07/29/17 15:00 Resp 20 07/29/17 15:00 BP 131/86 07/29/17 15:00 Pulse Ox 95 07/29/17 15:00 Intake & Output 07/28/17 07/29/17 07/29/17 18:59 06:59 18:59 Intake Total 600 220 Output Total 1 Balance 600 219 Intake: Intake, IV Titration 600 Amount Sodium Chloride 0.9% 1, 600 000 ml @ 75 mls/hr IV . [id number] [facility] Rx#:[id number] Oral 220 Output: Stool 1 Other: Voiding Method Indwelling Catheter Indwelling Catheter Indwelling Catheter # Voids 1 1 # Bowel Movements 1 3 2 - Exam PHYSICAL EXAMINATION: GENERAL: The patient is alert and oriented x0-1, not in any acute distress. Well developed, well nourished. HEENT: Pupils are round and equally reacting to light. EOMI. No scleral icterus. No conjunctival pallor. Normocephalic, atraumatic. No pharyngeal erythema. No thyromegaly. CARDIOVASCULAR: S1 and S2 present. No murmurs, rubs, or gallops. PULMONARY: Chest is clear to auscultation, no wheezing or crackles. ABDOMEN: Soft, nontender, nondistended, normoactive bowel sounds. No palpable organomegaly. MUSCULOSKELETAL: No joint swelling or deformity. EXTREMITIES: No cyanosis, clubbing, or pedal edema. NEUROLOGICAL: Still has motor aphasia unsure why patient is aphasic SKIN: No rashes. - Labs CBC & Chem 7: 07/28/17 07:37 07/28/17 07:37 Assessment and Plan Plan: -Aphasia and altered mental status probably due to toxic encephalopathy from urinary tract infection patient is on Ceftin as we do not have any IV access which will be continued infectious disease is following the patient patient up pansensitive E. coli. She'll not undergo any lumbar puncture at this time. Patient pulled out her midline Atrial fibrillation: Presently rate controlled , can you to temporally hold anticoagulation until the actual ration of not doing LP is made. -Episodes of agitation secondary to delirium from benzodiazepines which will be discontinued patient has toxic encephalopathy from urinary tract infection as well as medications as mentioned above -Ovarian cancer patient is receiving chemotherapy no evidence of metastatic disease -Rule out CVA, ruled out brain metastases next and-depression -Hypertension Deconditioning
--- NOTE | 2017-07-29 17:59 | P.PN ---
Subjective Progress Note Date: 07/29/17 This patient is a 62-year-old female being evaluated for acute encephalopathy and obtundation. Patient has a history of stage IV ovarian cancer. She has been very lethargic since admission to hospital. She was scheduled for MRI of the brain yesterday but this could not be completed as she became short of breath when flat on the gurney. The patient remained very much obtunded and does not open eyes yesterday. According to 2 of her daughters at the bedside she was clearly much more alert and awake about a week ago. She has shown a rapid decline. She is being followed by oncology as she has a known history of underlying ovarian cancer stage IV. Since the patient was unable to have MRI of the brain yesterday we are recommending that she be evaluated for lumbar puncture by anesthesia tomorrow for further evaluation of altered mental status. Would recommend to check for routine as well as special studies for possibility of encephalitis as well in this patient. Patient also has a known history of stage IV ovarian cancer. She should have spinal fluid evaluated for leptomeningeal carcinomatosis. Patient was able to have MRI of the brain completed today on 07/24/2017. MRI reveals no acute intracranial abnormality. Both punctate and confluent area ventricular white matter ischemic changes were noted. Suggesting small vessel disease. Retention cyst in the left maxillary sinus. There was no enhancing lesions noted. Fortunately this MRI is not indicating metastatic lesions to the brain. According to the daughter who is at bedside today her lumbar puncture has been placed on hold at this time. Her platelet count came back at 63,000 and anesthesia will not perform the lumbar puncture until her platelet count is in a normal range. She is also recommended to discontinue Eliquis for 3 days prior to lumbar puncture. We will await further recommendations from infectious disease and oncology regarding her LP status. Infectious disease is also following the patient closely. This patient's history was reviewed today with Dr. Forde. Today the patient's mental status has improved. She is much more awake and alert and talkative. Her overall mental status seems to wax and wane. Family members at bedside states that she still has episodes of confusion. We will continue further management as per infectious disease regarding her septic picture. Patient is being treated for E. coli urinary tract infection and is currently covered with Rocephin. The patient continues to show signs of improvement in her mental status over the last 2 days. Her mental status changes are more likely secondary to a metabolic encephalopathy. The patient is unable to have lumbar puncture procedure due to her thrombocytopenia and the fact that she has been on Eliquis. Dr. Forde states that the benefit the lumbar puncture exam outweighs the risk associated with attendance the lumbar puncture will be placed on hold at this point unless her condition changes. Case was discussed with 2 family members at bedside today as well. They feel she is making good progress. She has completed 5 cycles of chemotherapy and will follow-up with Dr. Israel at the time of discharge. We will continue close neurological follow- up with the patient as well. Objective - Vital Signs Vital signs: Vital Signs Temp 97.4 F L 07/29/17 15:00 Pulse 91 07/29/17 15:00 Resp 20 07/29/17 15:00 BP 131/86 07/29/17 15:00 Pulse Ox 95 07/29/17 15:00 Intake & Output 07/28/17 07/29/17 07/29/17 18:59 06:59 18:59 Intake Total 600 220 Output Total 1 Balance 600 219 Intake: Intake, IV Titration 600 Amount Sodium Chloride 0.9% 1, 600 000 ml @ 75 mls/hr IV . [id number] [facility] Rx#:[id number] Oral 220 Output: Stool 1 Other: Voiding Method Indwelling Catheter Indwelling Catheter Indwelling Catheter # Voids 1 1 # Bowel Movements 1 3 2 - Exam Physical examination: PHYSICAL EXAMINATION: Patient is laying in bed. She does not open her eyes. VITAL SIGNS: Blood pressure is [131/86]. Heart rate is [91]. Respiration is [20] . Temperature is [97.4]. HEENT: Head is atraumatic, neck is supple, there were no carotid bruits. CHEST: Lungs are clear to auscultation and percussion. CARDIAC: S1, S2 normal rate and rhythm. There is no murmur. ABDOMEN: Soft and nontender. Bowel sounds are present. EXTREMITIES: There is no pedal edema. Peripheral pulses are present. Neurological examination: Patient is much more awake and alert today. She is able to answer some simple questions. According to the daughter who is at bedside she is much more her normal mentation. She is opening her eyes and has noted has been conversant with family members. She she is much more awake and alert today as compared to yesterday. She is following simple commands. Patient remains afebrile. - Labs CBC & Chem 7: 07/28/17 07:37 07/28/17 07:37 Assessment and Plan (1) Acute encephalopathy Current Visit: Yes Status: Acute Code(s): G93.40 - ENCEPHALOPATHY, UNSPECIFIED SNOMED Code(s): 19945313 (2) Delirium due to general medical condition Current Visit: Yes Status: Acute Code(s): F05 - DELIRIUM DUE TO KNOWN PHYSIOLOGICAL CONDITION SNOMED Code(s): 9063151 (3) Endometrial cancer Current Visit: Yes Status: Acute Priority: High Code(s): C54.1 - MALIGNANT NEOPLASM OF ENDOMETRIUM SNOMED Code(s): 497944304 (4) Ovarian cancer Current Visit: Yes Status: Acute Code(s): C56.9 - MALIGNANT NEOPLASM OF UNSPECIFIED OVARY SNOMED Code(s): 205175674 Plan: This patient is a 62-year-old female who is being followed for history of recent severe urinary tract infection and encephalopathy. The patient was being considered for possible lumbar puncture for spinal fluid analysis due to her confusion and lethargy. She has evidence of severe thrombocytopenia and is been on Eliquis and is not a candidate for lumbar puncture at this time. This was reinforced by Dr. Forde the infectious disease doctor today as well. We will hold off on lumbar puncture for this patient as she is showing signs of improvement in her mental status as well. Patient has history of endometrial cancer and will follow-up with Dr. Lee for further management of this condition. She does continue to show improvement in her treatment of the underlying urinary tract infection and is currently been switched to oral antibiotic coverage. Infectious diseases monitoring the patient's progress as well. Overall prognosis at this time remains guarded. Case was discussed with family members at bedside. They have noticed an improvement in her overall mental status today as well.
[2017-07-30] MEDS: SODIUM CHLORIDE 0.9% 1,000 ML IV SCH (05:25)
[2017-07-30] MEDS: ASPIRIN-ACET-CAFF 250-250-65MG 1 EACH TAB PO PRN (05:34)
[2017-07-30 08:47] VITALS: BP 160/99; PULSE 96; RESP 16; TEMP 97.7
[2017-07-30] MEDS: CEFUROXIME 250 MG TAB PO SCH (09:33)
[2017-07-30] MEDS: METOPROLOL TARTRATE 50 MG TAB PO SCH (09:33)
[2017-07-30] MEDS: VIT A,C & E-LUTEIN-MINERALS 1 EACH TAB PO SCH (09:33)
[2017-07-30] MEDS: SERTRALINE 25 MG TAB PO SCH (09:34)
[2017-07-30] MEDS: NYSTATIN 100,000 UNIT/ML SUSP 500,000 UNIT/5 ML CUP PO SCH (09:34)
[2017-07-30] MEDS: FAMOTIDINE 20 MG TAB PO SCH (09:34)
--- NOTE | 2017-07-30 10:39 | P.DS ---
Providers Date of admission: 07/21/17 23:06 Attending physician: Raman Ditez Consults: 07/21/17 23:06 Consult Physician Routine Consulting Provider: Marlon Mead Consult Reason/Comments: known Do you want consulting provider notified?: Yes Consult Physician Routine Consulting Provider: Brody Pate Consult Reason/Comments: ams Do you want consulting provider notified?: Yes 07/23/17 15:47 Consult Physician Routine Consulting Provider: Eleni Forde Consult Reason/Comments: fever Do you want consulting provider notified?: Yes 07/24/17 01:49 Consult Physician Routine Consulting Provider: Sander Gregory Consult Reason/Comments: afib Do you want consulting provider notified?: Yes 07/24/17 07:00 Consult to Anesthesia Urgent Consulting Provider: Anesthesia,Services Consult Reason/Comments: Lumbar Puncture to rule out leptomeningeal carcinomatiosis. 07/27/17 10:23 Consult to Anesthesia Stat Consulting Provider: Anesthesia,Services Consult Reason/Comments: LP /CSF Primary care physician: Abel [facility] Course: 62-year-old that came in with altered mental status and aphasia altered mental status significant improved status still confused but alert oriented times close to 2 patient is being treated for urinary tract infection. Patient still remains aphasic although MRI did not show any metastatic lesions or any stroke. Neurology evaluated the patient patient is on Unasyn infectious disease is following the patient as well. 07/25/2017 Patient's aphasia improved significantly although patient is still confused , there is no significant abnormality on MRI. Patient may be encephalopathic. Discussed at length with the patient and family members today. Plan will be discussed regarding LP with the oncology and neurology. 07/26/2017 No plans for LP as a neurology believes and infectious disease will is that her encephalopathy secondary to urinary tract infection. Patient is being treated for E. coli with Rocephin. Patient doesn't have any fevers but patient became more confused and agitated. Patient received of benzodiazepines which did increase to have agitation benzodiazepines will be discontinued and patient was started on Seroquel at nighttime patient didn't sleep for last couple days because of which family is concerned. Seroquel should help with her sleep as well as agitation and we will also use when necessary low-dose Haldol for agitation episodes agent is also having hallucinations. Discussed at length with cardiology regarding her anticoagulation the recording anticoagulation will discuss with the oncology as well for atrial fibrillation anticoagulation, will which she will be started on once her midline was placed tomorrow, patient is a being of multiple IV lines. Her motor aphasia significantly improved continues to have some sensory aphasia and remains confused 07/27/2017 Patient can easily confused on and off. No fevers at this point of time abdominal CAT scan did not show any infectious process or abscess, patient is being treated for urinary tract infection patient received midline, heart rate is not well controlled. Patient will be started on anticoagulation. 07/28/2017 Patient is more awake today still confused quite a bit getting IV fluids creatinine improved continuing IV fluids. He received platelets will undergo lumbar puncture today 07/29/2017 Patient remains confused, patient is unable to her lumbar puncture as radiology and the anesthesiologist not comfortable with doing LP with the low platelet count of 60,000. 07/30/2017 Patient confusion did improve and is improving slowly and expected to improve down the line in next few days. Patient will be discharged today to subacute rehabilitation. Patient will be started on anticoagulations for atrial fibrillation patient heart rate is well controlled at this point of time patient although remains confused which improved since her admission even improved compared to yesterday. Her prognosis remains poor and patient is definitely high risk for readmission PHYSICAL EXAMINATION: GENERAL: The patient is alert and oriented x1-2, not in any acute distress. Well developed, well nourished. HEENT: Pupils are round and equally reacting to light. EOMI. No scleral icterus. No conjunctival pallor. Normocephalic, atraumatic. No pharyngeal erythema. No thyromegaly. CARDIOVASCULAR: S1 and S2 present. No murmurs, rubs, or gallops. PULMONARY: Chest is clear to auscultation, no wheezing or crackles. ABDOMEN: Soft, nontender, nondistended, normoactive bowel sounds. No palpable organomegaly. MUSCULOSKELETAL: No joint swelling or deformity. EXTREMITIES: No cyanosis, clubbing, or pedal edema. NEUROLOGICAL: Still has motor aphasia unsure why patient is aphasic SKIN: No rashes. Assessment and Plan Plan: -Aphasia and altered mental status probably due to toxic encephalopathy from urinary tract infection patient is on Ceftin remains confused aphasia improved confusion improved significantly. Atrial fibrillation: Presently rate controlled. -Episodes of agitation secondary to delirium from benzodiazepines which will be discontinued patient has toxic encephalopathy from urinary tract infection as well as medications as mentioned above -Ovarian cancer -Rule out CVA, ruled out brain metastases next and-depression -Hypertension Deconditioning Patient Condition at Discharge: Fair Plan - Discharge Summary Discharge Rx Participant: No New Discharge Prescriptions: New Acetaminophen Tab [Tylenol] 650 mg PO Q4HR PRN tab PRN Reason: Fever and/ or Mild Pain Apixaban [Eliquis] 5 mg PO BID #30 tab [id number] [Excedrin] 1 each PO BID PRN tab PRN Reason: Headache Cefuroxime [Ceftin] 500 mg PO BID #14 tab Metoprolol Tartrate [Lopressor] 50 mg PO BID #0 tab QUEtiapine [SEROquel] 12.5 mg PO HS PRN #20 tab PRN Reason: Agitation Continue Vit C/E/Zn/Coppr/Lutein/Zeaxan [Preservision Areds 2 Softgel] 1 cap PO BID Sertraline HCl [Zoloft] 75 mg PO DAILY Ferrous Sulfate [Iron] 325 mg PO DAILY Famotidine [Pepcid] 20 mg PO BID Changed Docusate [Colace] 100 mg PO BID PRN #1 PRN Reason: Constipation Discontinued Bisoprol/Hydrochlorothiazide [Ziac 5-6.25 MG] 1 tab PO DAILY Loperamide HCl [Imodium A-D] 2 mg PO TID PRN PRN Reason: Diarrhea ALPRAZolam [Xanax] 0.5 mg PO TID PRN PRN Reason: Anxiety Cyclobenzaprine [Flexeril] 5 mg PO DAILY PRN PRN Reason: Muscle Pain Discharge Medication List Famotidine [Pepcid] 20 mg PO BID 01/05/17 [History] Ferrous Sulfate [Iron] 325 mg PO DAILY 01/05/17 [History] Sertraline HCl [Zoloft] 75 mg PO DAILY 01/05/17 [History] Vit C/E/Zn/Coppr/Lutein/Zeaxan [Preservision Areds 2 Softgel] 1 cap PO BID 01/05 [History] Acetaminophen Tab [Tylenol] 650 mg PO Q4HR PRN tab 07/30/17 [Rx] Apixaban [Eliquis] 5 mg PO BID #30 tab 07/30/17 [Rx] [id number] [id number] [Excedrin] 1 each PO BID PRN tab 07/30/17 [Rx] Cefuroxime [Ceftin] 500 mg PO BID #14 tab 07/30/17 [Rx] Docusate [Colace] 100 mg PO BID PRN #1 07/30/17 [Rx] Metoprolol Tartrate [Lopressor] 50 mg PO BID #0 tab 07/30/17 [Rx] QUEtiapine [SEROquel] 12.5 mg PO HS PRN #20 tab 07/30/17 [Rx] Follow up Appointment(s)/Referral(s): None,Stated [REFERRING] - 1-2 days Ann-Marie Israel MD [STAFF PHYSICIAN] - 08/13/17 11:15 am Discharge Disposition: TRANSFER TO SNF/ECF
[2017-07-30] MEDS ORDERED: APIXABAN 5 MG TAB PO SCH (10:45)
--- NOTE | 2017-07-30 14:23 | PN ---
PROGRESS NOTE DATE OF SERVICE: 07/30/2017 REASON FOR FOLLOW UP: E coli urinary tract infection. INTERVAL HISTORY: The patient is afebrile. She seemed to be more awake, alert, breathing comfortably. No chest pain. No cough. No abdominal pain. No nausea, vomiting, or any diarrhea. PHYSICAL EXAMINATION: Blood pressure 160/99, pulse of 96, temperature 97.7, she is 95% on room air. General description is a middle-aged female, lying in bed in no distress. RESPIRATORY SYSTEM: Unlabored breathing, clear to auscultation anteriorly. HEART: S1, S2. Regular rate and rhythm. ABDOMEN: Soft, no tenderness. LABS: No new labs. DIAGNOSTIC IMPRESSION AND PLAN: Patient with Escherichia coli and drug infection complicated, currently on oral Ceftin because of no IV access. Recommend keep the patient on Rocephin for another week and continue with supportive care. Family member present at bedside. They had multiple questions. All their questions were answered. MMODL / IJN: [id number] /
== END 2017-07-30 13:10 | DRG 871 ==
LOC: SUPCPDRO 20:44 → EC 20:44 → 6SEL 23:06 → 5ONC 07-27 20:28
PROVIDERS: ADMIT Hospitalist; ATTEND Hospitalist
DX: A41.51 Sepsis due to Escherichia coli [E. coli] (principal); G92 Toxic encephalopathy; Z68.42 Body mass index [BMI] 45.0-49.9, adult; C78.6 Secondary malignant neoplasm of retroperitoneum and peritoneum; C79.51 Secondary malignant neoplasm of bone; C56.9 Malignant neoplasm of unspecified ovary; F05 Delirium due to known physiological condition; N17.9 Acute kidney failure, unspecified; N12 Tubulo-interstitial nephritis, not specified as acute or chronic; R26.9 Unspecified abnormalities of gait and mobility; F32.9 Major depressive disorder, single episode, unspecified; F41.9 Anxiety disorder, unspecified; E86.0 Dehydration; I10 Essential (primary) hypertension; C54.1 Malignant neoplasm of endometrium; E66.9 Obesity, unspecified; M54.5 Low back pain; G89.29 Other chronic pain; I48.0 Paroxysmal atrial fibrillation; F80.2 Mixed receptive-expressive language disorder; T42.4X5A Adverse effect of benzodiazepines, initial encounter; D63.8 Anemia in other chronic diseases classified elsewhere; G47.30 Sleep apnea, unspecified; D69.6 Thrombocytopenia, unspecified; M19.90 Unspecified osteoarthritis, unspecified site; H35.30 Unspecified macular degeneration; Z82.49 Family history of ischemic heart disease and other diseases of the circulatory system; Z80.3 Family history of malignant neoplasm of breast; Z80.6 Family history of leukemia; Z82.41 Family history of sudden cardiac death; Z79.899 Other long term (current) drug therapy; Z79.01 Long term (current) use of anticoagulants; Z92.3 Personal history of irradiation; Z92.21 Personal history of antineoplastic chemotherapy
CPT/HCPCS: 00000; 36415; 70450; 70553; 71045; 71046; 74176; 80048; 80053; 80061; 81001; 82140; 82550; 82553; 83605; 83735; 84100; 84484; 85025; 85027; 85610; 85730; 86850; 86900; 86901; 87077; 87086; 87186; 87324; 93005; 94760; 96361; 96365; 96375; 99285

== ENCOUNTER 2017-07-31 06:17 | Emergency (ER) | payer BC ==
[2017-07-31] MEDS ORDERED: DIPH,PERTUS(ACELL)TETVAC-LF 0.5 ML VIAL IM ONE (06:27)
--- NOTE | 2017-07-31 06:31 | ED ---
Fall HPI <Hayden Fuentes - Last Filed: 07/31/17 08:24> - General Source: patient, EMS Mode of arrival: EMS - History of Present Illness MD Complaint: fall Onset/Timin -: hour(s) Fall From: out of bed When Fall Occurred: 1 hour [employer] Fall Witnessed: no Place Fall Occurred: long term/SNF Loss of Consciousness: unsure Prolonged Down Time?: no Symptoms Prior to Fall: none Location: head Severity: moderate Associated Symptoms: headache <Manny Anaya - Last Filed: 08/04/17 07:19> - General Chief Complaint: Fall Stated Complaint: Fall Time Seen by Provider: 07/31/17 06:23 - History of Present Illness Initial Comments: Patient is a 62 year old woman from [place] after a fall striking occipital area of head. Denies other injury. No neck pain. (Manny Anaya) - Related Data Home Medications Medication Instructions Recorded Confirmed Famotidine [Pepcid] 20 mg PO BID 01/05/17 07/21/17 Ferrous Sulfate [Iron] 325 mg PO DAILY 01/05/17 07/21/17 Sertraline HCl [Zoloft] 75 mg PO DAILY 01/05/17 07/21/17 Vit C/E/Zn/Coppr/Lutein/Zeaxan 1 cap PO BID 01/05/17 07/21/17 [Preservision Areds 2 Softgel] Previous Rx's Medication Instructions Recorded Acetaminophen Tab [Tylenol] 650 mg PO Q4HR PRN tab 07/30/17 Apixaban [Eliquis] 5 mg PO BID #30 tab 07/30/17 [id number]-Bzph-Lido [phone] 1 each PO BID PRN tab 07/30/17 [Excedrin] Cefuroxime [Ceftin] 500 mg PO BID #14 tab 07/30/17 Docusate [Colace] 100 mg PO BID PRN #1 07/30/17 Metoprolol Tartrate [Lopressor] 50 mg PO BID #0 tab 07/30/17 QUEtiapine [SEROquel] 12.5 mg PO HS PRN #20 tab 07/30/17 Allergies Allergy/AdvReac Type Severity Reaction Status Date / Time No Known Allergies Allergy Verified 07/22/17 08:27 Review of Systems ROS Other: All systems not noted in ROS Statement are negative. <Hayden Fuentes - Last Filed: 07/31/17 08:24> ROS Other: All systems not noted in ROS Statement are negative. Constitutional: Denies: fever Respiratory: Denies: cough, dyspnea Cardiovascular: Denies: chest pain, orthopnea Gastrointestinal: Denies: abdominal pain, vomiting, diarrhea Musculoskeletal: Denies: back pain, arthralgia Neurological: Reports: as per HPI, headache. Denies: weakness, numbness, confusion <Manny Anaya - Last Filed: 08/04/17 07:19> ROS Statement: Those systems with pertinent positive or pertinent negative responses have been documented in the HPI. Past Medical History Past Medical History: Cancer, Eye Disorder, Hypertension, Osteoarthritis (OA), Sleep Apnea/CPAP/BIPAP Additional Past Medical History / Comment(s): macular degenerationdoes nodt use c pap machine History of Any Multi-Drug Resistant Organisms: None Reported Past Surgical History: Orthopedic Surgery Additional Past Surgical History / Comment(s): 01/11/17 Exam under anesthesia with bx vaginal apex mass, hysteroscopy, D&C, ORIF bilateral ankles with external device r leg, debridement L leg, skin graft from L thigh to lower L leg. Past Anesthesia/Blood Transfusion Reactions: No Reported Reaction Additional Past Anesthesia/Blood Transfusion Reaction / Comment(s): Pt has received blood in the past without reaction. Past Psychological History: Anxiety, Depression Smoking Status: Never smoker Past Alcohol Use History: Occasional Past Drug Use History: None Reported - Past Family History Sister(s) Family Medical History: Cancer Additional Family Medical History / Comment(s): breast Father Family Medical History: Cancer Additional Family Medical History / Comment(s): Father had leukemia. Father is . Mother Family Medical History: Hypertension Additional Family Medical History / Comment(s): Mother is . cardiac arrest <Manny Anaya - Last Filed: 08/04/17 07:19> General Exam Limitations: altered mental status General appearance: alert, in no apparent distress, obese Head exam: Present: atraumatic, normocephalic Eye exam: Present: normal appearance. Absent: scleral icterus, conjunctival injection Neck exam: Present: normal inspection, other (Cervical collar) Respiratory exam: Present: normal lung sounds bilaterally. Absent: respiratory distress, wheezes, rales, rhonchi, stridor Cardiovascular Exam: Present: regular rate, normal rhythm, normal heart sounds. Absent: systolic murmur, diastolic murmur, rubs, gallop GI/Abdominal exam: Present: soft. Absent: distended, tenderness, guarding, rebound, rigid, mass Extremities exam: Present: normal capillary refill, pedal edema, other (L ankle displays skin breakdown from sock elastic and edema related to tourniquet effect.). Absent: calf tenderness Neurological exam: Present: alert, CN II-XII intact. Absent: motor sensory deficit Skin exam: Present: warm, dry, intact, normal color. Absent: rash <Manny Anaya - Last Filed: 08/04/17 07:19> Vital Signs 07/31/17 07/31/17 06:20 09:11 Temperature 97.4 F L 97.6 F Pulse Rate 92 108 H Respiratory 18 20 Rate Blood Pressure 131/83 152/63 O2 Sat by Pulse 93 L 98 Oximetry Medical Decision Making <Hayden Fuentes - Last Filed: 07/31/17 08:24> - EKG Data -: EKG Interpreted by De EKG shows normal: axis (normal), intervals (normal), QRS complexes (normal) Rate: normal (95 bpm) Interpretation: nonspecific ST-T wave changes, other (atrial fibrillation) <Manny Anaya - Last Filed: 08/04/17 07:19> - Medical Decision Making Ultrasound showed no DVT. CT of the rain showed no bleed. CT of the C-spine showed no abnormality. I went back into the room the family member stating that the patient was at her baseline. I did look at the laceration of the back of the head it was closed well with Steri-Strips and the family member did not want her to get shelby she needed them. (Hayden Fuentes) Disposition Time of Disposition: 08:25 <Hayden Fuentes - Last Filed: 07/31/17 08:24> Is patient prescribed a controlled substance at d/c from ED?: No <Manny Anaya - Last Filed: 08/04/17 07:19> Clinical Impression: Fall, Scalp laceration, Head injury Disposition: HOME SELF-CARE Condition: Good Instructions: Fall Prevention for Older Adults (ED), Head Injury (ED) Referrals: Abel Sevilla MD [Primary Care Provider] - 1-2 days
--- NOTE | 2017-07-31 07:27 | CT ---
EXAM: CT Head Without Intravenous Contrast CLINICAL HISTORY: CT Reason: fall TECHNIQUE: Axial computed tomography images of the head/brain without intravenous contrast. CTDI is 57.40 mGy and DLP is 1040.70 mGy-cm. This CT exam was performed using one or more of the following dose reduction techniques: automated exposure control, adjustment of the mA and/or kV according to patient size, and/or use of iterative reconstruction technique. COMPARISON: No relevant prior studies available. FINDINGS: Brain: There are periventricular and subcortical white matter hypodense changes noted. No hemorrhage. Ventricles: Unremarkable. No ventriculomegaly. Bones/joints: Unremarkable. No acute fracture. Soft tissues: Unremarkable. Sinuses: Unremarkable as visualized. No acute sinusitis. Mastoid air cells: Unremarkable as visualized. No mastoid effusion. IMPRESSION: No acute intracranial process. Presumed microvascular periventricular deep white matter changes noted. If there is concern for a demyelinating process, MRI is recommended. EXAM: CT Cervical Spine Without Intravenous Contrast CLINICAL HISTORY: CT Reason: fall TECHNIQUE: Axial computed tomography images of the cervical spine without intravenous contrast. CTDI is 36.60 mGy and DLP is 753.7 mGy-cm. This CT exam was performed using one or more of the following dose reduction techniques: automated exposure control, adjustment of the mA and/or kV according to patient size, and/or use of iterative reconstruction technique. COMPARISON: No relevant prior studies available. FINDINGS: Vertebrae: There are sclerotic foci identified involving the odontoid process, C6, C7, T2 and T3. No acute fracture. Discs/spinal canal/neural foramina: No acute findings. No spinal canal stenosis. Other bones/joints: There is a healing fracture involving the lateral aspect of the right second rib (series 14; image 14). Soft tissues: Unremarkable. Lung apices: Unremarkable as visualized. IMPRESSION: No acute traumatic injury involving the cervical spine. There are multiple sclerotic foci identified involving the several cervical and thoracic vertebrae as listed above. These findings are highly suspicious for osseous metastatic disease. No cortical erosion or acute fracture identified. Dedicated nonemergent workup for underlying neoplastic focus is recommended however. [employer] 07/31/17 07:34 Verify Receipt Verified receipt with [facility] in ER for Dr. Fuentes on 07/31 07:34 (-04:00)
--- NOTE | 2017-07-31 08:07 | US ---
EXAMINATION TYPE: US venous doppler duplex LE LT DATE OF EXAM: 07/31/2017 7:46 AM COMPARISON: NONE CLINICAL HISTORY: swelling. SIDE PERFORMED: Left TECHNIQUE: The lower extremity deep venous system is examined utilizing real time linear array sonog yuan with graded compression, doppler sonography and color-flow sonography. VESSELS IMAGED: External Iliac Vein (EIV) Common Femoral Vein Deep Femoral Vein Greater Saphenous Vein * Femoral Vein Popliteal Vein Small Saphenous Vein * Proximal Calf Veins (* superficial vessels) Severely limited due to Patient uncooperative and kicking and moving legs throughout exam, unable to document compression of compression Pop v mid and low. However, color and spectral waveforms appear w nl. Left Leg: Negative for DVT No popliteal fossa lesion is seen. IMPRESSION: THIS EXAMINATION IS NEGATIVE FOR DVT WITHIN THE LEFT LEG.
[2017-07-31 09:13] VITALS: BP 152/63; PULSE 108; RESP 20; TEMP 97.6
== END 2017-07-31 09:56 | disposition home or self-care (01) ==
LOC: EC 06:17
DX: S01.01XA Laceration without foreign body of scalp, initial encounter (principal); I48.91 Unspecified atrial fibrillation; R41.82 Altered mental status, unspecified; R60.0 Localized edema; R23.8 Other skin changes; E66.9 Obesity, unspecified; F32.9 Major depressive disorder, single episode, unspecified; F41.9 Anxiety disorder, unspecified; Z79.899 Other long term (current) drug therapy; Z98.890 Other specified postprocedural states; Z97.8 Presence of other specified devices; Z82.49 Family history of ischemic heart disease and other diseases of the circulatory system; Z68.42 Body mass index [BMI] 45.0-49.9, adult; Z23 Encounter for immunization; W06.XXXA Fall from bed, initial encounter
CPT/HCPCS: 70450; 72125; 90471; 90715; 99284